=== PATIENT | female | born 2000 | race Caucasian/White ===

== ENCOUNTER 2022-09-18 09:18 | Outpatient (REF) | payer OTHER, SELFPAY ==
[2022-09-18 09:43] LABS: Basophils Absolute Auto 0.1 X10*3/uL (0.0-0.2); Eosinophils Absolute Auto 0.2 X10*3/uL (0.0-0.4); Eosinophils Percent Auto 2.8 % (0-4); Hematocrit 43.1 % (37.0-47.0); Hemoglobin 14.3 g/dl (12.0-16.0); Imm Gran Abs Auto 0.02 X10*3/uL (0.00-0.03); Imm Gran Pct Auto 0.3 % (0.0-0.4); Lymphocytes Absolute Auto 1.7 X10*3/uL (1.2-4.9); Lymphocytes Percent Auto 29.5 % (20-40); MANUAL DIFF FLAG NO; Mean Corpuscular HGB Conc 33.2 g/dl (31.0-35.0); Mean Corpuscular Hemoglobin 29.9 pg (27.0-33.0); Mean Corpuscular Volume 90.2 fL (80.0-98.0); Mean Platelet Volume 9.8 fL (9.4-12.3); Monocytes Absolute Auto 0.5 X10*3/uL (0.1-1.2); Monocytes Percent Auto 8.7 % (2-11); Neutrophils Absolute Auto 3.3 x10*3/uL (2.0-8.3); Neutrophils Percent Auto 57.7 % (45-73); Platelet Count 303 X10*3/uL (160-400); Red Blood Count 4.78 X10*6/uL (4.20-5.50); Red Cell Distribution Width 11.5 % (11.0-16.0); White Blood Count 5.7 X10*3/uL (4.8-10.8)
[2022-09-18 10:27] LABS: Alanine Aminotransferase 11 U/L (0-31); Albumin Level 4.7 g/dL (3.5-5.0); Alkaline Phosphatase 73 U/L (39-117); Anion Gap 12 (12-20); Aspartate Amino Transferase 15 U/L (5-31); Bilirubin Total 0.7 mg/dL (0.0-1.0); Blood Urea Nitrogen 16 mg/dL (9-16); Calcium 10.2 mg/dL (8.4-10.2); Carbon Dioxide 25 mmol/L (22-29); Chloride 107 mmol/L (96-108); Estimated Glomerular Filt Rate > 60; Glucose Random 117 mg/dL (60-115); Potassium 4.7 mmol/L (3.3-5.1); Sodium 139 mmol/L (135-145); Total Protein 7.4 g/dL (6.5-8.0)
[2022-09-18 10:56] LABS: Folate 17.9 ng/mL (> or = 4.0); TSH reflex Free T4 2.15 uIU/mL (0.32-4.0); Vitamin B12 472 pg/mL (200-900); Vitamin D 25-OH Total 36.5 ng/mL (>30)
== END 2022-09-18 09:19 | disposition home or self-care (01) ==
LOC: HO.LAB 09:18
PROVIDERS: PCP Nurse Practitioner Family; Visit Provider Nurse Practitioner Family
DX: F41.9 Anxiety disorder, unspecified (principal); R11.10 Vomiting, unspecified; F42.9 Obsessive-compulsive disorder, unspecified; R73.9 Hyperglycemia, unspecified
CPT/HCPCS: 36415; 80053; 82306; 82607; 82746; 84443; 85025

== ENCOUNTER 2022-10-06 10:51 | Emergency (ER) | payer OTHER, SELFPAY ==
--- NOTE | ~2022-10-06 | CT_ITS ---
EXAMINATION: CT ABDOMEN AND PELVIS WITH CONTRAST CLINICAL INFORMATION: Right lower quadrant tenderness COMPARISON: None available. TECHNIQUE: Multidetector volumetric images were obtained from the superior aspect of the liver through the pubic symphysis following administration 85 mL of Omnipaque 350 intravenous contrast. Sagittal and coronal reformatted images were obtained on the technologist's workstation. Oral contrast: No This CT examination was performed using dose optimization techniques as appropriate, variously including the following: *Automated exposure control *Adjustment of mA and/or kV according to patient size (this includes techniques or standardized protocols for targeted exams where dose is matched to indication/reason for exam; i.e. extremities or head) *Use of iterative reconstruction technique DLP: 3:15 mGy-cm FINDINGS: LUNG BASES: The visualized lung bases are unremarkable. LIVER, GALLBLADDER, AND BILIARY TREE: The liver is normal in size, shape, and attenuation. No focal hepatic lesion or biliary ductal dilatation is present. The gallbladder is unremarkable with no evidence of radiopaque gallstones, gallbladder wall thickening, or obvious pericholecystic inflammatory changes. PANCREAS: Unremarkable. SPLEEN: Unremarkable. ADRENAL GLANDS: Unremarkable. KIDNEYS AND URETERS: The kidneys are normal in size, shape, and attenuation. No hydronephrosis, hydroureter, or calculi seen. No perinephric stranding. BLADDER: Unremarkable. GASTROINTESTINAL TRACT: There is scattered stool and gas seen throughout the colon without distention. There is mild mural thickening involving descending colon without pericolic fat stranding. The small bowel loops are normal caliber. Appendix is not visualized ABDOMINAL WALL: No significant hernia is appreciated. LYMPH NODES: Normal. VASCULAR: Unremarkable. PELVIC VISCERA: The uterus is anteverted but unremarkable ovaries. There is minimal physiological free fluid in the cul-de-sac. OSSEOUS STRUCTURES: No lytic or sclerotic process seen. CT/CT abdomen pelvis w IV con IMPRESSION: 1. No acute intra-abdominal process seen. 2. Mild mural thickening involving descending colon without pericolic fat stranding. Question inflammatory or infectious etiology. Correlate with clinical exam. 3. Minimal physiological free fluid in the cul-de-sac. Fleischner guidelines were followed.
[2022-10-06 11:11] VITALS: BP 122/88; PULSE 92; RESP 18; TEMP 36.9; O2SAT 100; BMI 16.5
--- NOTE | 2022-10-06 11:11 | ED.NAVMDI ---
HPI - Nausea/Vomiting/Diarrhea General Chief complaint: Nausea/Vomiting/Diarrhea Stated complaint: Vomiting blood Time Seen by Provider: 10/06/22 12:20 Source: patient Mode of arrival: ambulatory Limitations: no limitations History of Present Illness HPI Narrative: Patient is a 21-year-old female with history of anxiety and OCD presenting to the emergency department with complaint of nausea and vomiting for the past 3 weeks. Reports this morning she noted tinges of blood in her vomit. States she is occasionally able to tolerate water but has been unable to tolerate any food for the past 3 weeks. She denies any diarrhea or constipation. Denies any fevers. Denies any abnormal vaginal discharge or abnormal vaginal bleeding. Denies any concern for STIs. Denies any back or flank pain. Reports 10/10 abdominal pain in the mornings which she states is relieved after vomiting. Denies chest pain or shortness of breath. Denies any prior abdominal surgeries. MD elicited complaint: nausea, vomiting and abdominal pain Onset (ago): week(s) Description of vomiting: watery and blood-streaked Associated nausea: Yes Associated abdominal pain: Yes Location of pain: epigastric Pain consistency: now resolved Exacerbating factors: eating Relieving factors: vomiting Associated symptoms: denies other symptoms Treatment prior to arrival: none Related Data Previous Rx's Medication Instructions Recorded epinephrine 0.3 mg/0.3 mL 0.3 mg (0.3 mL) IM Q4H PRN 09/18/22 injection, auto-injector (EpiPen anaphylaxis #2 ea 2-Paco) hydroxyzine HCl 10 mg tablet 10 mg PO BID PRN anxiety #20 tabs 09/23/22 dicyclomine 10 mg capsule 10 mg PO QID PRN abdominal pain 10/06/22 #20 caps ondansetron 4 mg disintegrating 4 mg PO Q8H PRN nausea and 10/06/22 tablet vomiting #10 tabs Allergies Allergy/AdvReac Type Severity Reaction Status Date / Time egg Allergy Severe Anaphylaxis Verified 10/06/22 11:18 Review of Systems Review of Systems: As per HPI. Yes all other systems are reviewed and are negative Constitutional: Constitutional: Reports as per HPI Gastrointestinal: Gastrointestinal: Reports nausea PMFSH Past Medical History Medical History (Updated 10/06/22 @ 16:23 by Sabrina Connelly NP) Anxiety Surgical History [place] teeth extracted Family History Family History Mother Asthma Maternal Grandfather Lung cancer Father No problems noted. Social History Social History Housing: House Alcohol intake: never Patient Tobacco Use Status: Never used Tobacco Smoked in Last 30 Days: No Use of substances other than those prescribed or required for medical reasons: No Advance Directives: No Advance Directives Information Provided: No service: No Current occupational status: employed Cognitive needs: No Hearing needs: No Vision needs: No Physical Exam Vital Signs: Vital Signs: Last Vital Signs Temp 98.5 F 10/06/22 15:52 Pulse 115 H 10/06/22 15:52 Resp 22 H 10/06/22 15:52 BP 128/83 10/06/22 15:52 Pulse Ox 100 10/06/22 15:52 O2 Del Method Room Air 10/06/22 15:52 BMI result Body Mass Index 16.5 Vital signs have been reviewed and appear to be correct. Blood pressure normal. Heart rate normal. Respiratory rate normal. Temperature normal. Oxygen saturation normal. Const: General: cooperative, healthy appearing and no acute distress Orientation/consciousness: oriented to person, oriented to place, oriented to time and patient oriented x3 Limitations: no limitations HEENT: Head: Yes normocephalic and Yes atraumatic Ears: external ears normal General nose exam: Normal external nose present Face and sinus: Yes face symmetric Mouth: oropharynx normal and moist mucous membranes Throat: Yes uvula midline Eyes: Pupils: Equal, round and reactive pupils present Neck: Neck: Yes normal visual inspection and Yes supple Resp: Effort & Inspection: normal respiratory effort and able to speak in complete sentences Auscultation: clear to auscultation bilaterally Cardio: Rate: regular rate Rhythm: regular rhythm Heart sounds: S1 normal heart sound present and S2 normal heart sound present GI: Inspection: Yes normal to inspection Palpation (GI): Soft to palpation, Tenderness to palpation present (GI) in the RLQ, no guarding and No Rebound tenderness present Auscultation: normoactive bowel sounds : General: Yes no CVA tenderness Back/Spine/Pelvis: Back: no CVA tenderness Skin: General skin exam: elasticity normal and turgor normal Neuro: General: oriented to person, oriented to place, oriented to time, patient oriented x3, moves all extremities, no focal motor deficits and CN's II-XI intact bilaterally Cranial nerves: Yes Equal, round and reactive pupils present Cognition (Neuro): normal cognition Extrem: General: Yes full ROM, Yes no pedal edema and Yes no calf tenderness Psych: Mental Status: mental status grossly normal Affect: normal affect Thought process: Normal thought process present Course Course Course Narrative: RME - 21 yo female with history of OCD and anxiety presents to the ER for evaluation of nausea and vomiting & abdominal pain for 3 weeks, unable to keep anything down. This morning started with blood streaked vomit. Seen by PCP on September 18 and was prescribed hydroxyzine for anxiety. Pain is worst in the mornings 10/10, relieved after vomiting in the mornings. Reports history of similar episode as a teenager but not for this long. Plan: basic lab workup, Upreg 16:18 Patient reports mild decrease in nausea, states it comes and goes. Nursing reports that patient became acutely anxious following her CT scan and was noted to have increased respiratory rate and mild tachycardia. Feel this is related to her anxiety, do not suspect sepsis. CT scan shows mild mural thickening involving the descending colon without fat stranding. Unlikely infectious as patient has been symptomatic for three weeks. Patient also does not have left-sided tenderness on exam. All results discussed with patient and and all questions answered. Will refer patient to GI outpatient for further evaluation of her symptoms. Will prescribe Bentyl for abdominal pain. Return precautions discussed at bedside. Instructed patient to follow-up with her PCP as well. Patient verbalized understanding and agreement with plan. Medications Administered Discontinued Medications Generic Name Dose Route Start Last Admin Trade Name Freq PRN Reason Stop Dose Admin Haloperidol Lactate 5 mg 10/06/22 13:21 10/06/22 13:29 Haloperidol Lactate 5 Mg/Ml Vial IM 10/06/22 13:22 5 mg STAT STA Administration Sodium Chloride 1,000 mls @ 999 mls/hr 10/06/22 13:15 10/06/22 14:20 Ns IV 10/06/22 14:15 Infused .Q1H1M ANDREY Infusion Iohexol 100 ml 10/06/22 15:07 10/06/22 15:09 Iohexol 350 Mg/Ml 100 Ml Infus..Btl IV 10/06/22 15:08 85 ml ONCE ONE Administration Medical Decision Making Medical Decision Making [facility] Narrative: Patient is a 21-year-old female with history of anxiety and OCD presenting to the emergency department with complaint of nausea and vomiting for the past 3 weeks. On exam patient is awake, A+Ox3, vital signs within normal limits, nontoxic appearing, lung sounds CTA, abdomen soft, tender to palpation right lower quadrant, no CVA tenderness. Urine hcg negative. 1+ leukocytes on UA, however epithelial cells also present so likely contamination. Mild leukocytosis and mildly elevated BUN likely related to vomiting, urine drug screen negative. Differential includes GERD, PUD, cyclical vomiting syndrome, appendicitis, electrolyte abnormality. Less likely bowel obstruction. Plan: CT abdomen pelvis and IV fluids, antiemetic Please refer to course for remaining clinical decision making. Differential Diagnosis Differential Diagnoses: The differential diagnosis associated with the presentation includes As above. Admission/Observation Consideration of admission/observation: Escalation of care including admission/observation considered Lab Data [facility] Lab Attestation statement: I reviewed the patient's lab results. 10/06/22 11:25 10/06/22 11:25 Labs: Lab Results 10/06/22 10/06/22 10/06/22 Range/Units 11:25 11:25 12:22 WBC 11.2 H (4.8-10.8) X10*3/uL RBC 5.10 (4.20-5.50) X10*6/uL Hgb 15.1 (12.0-16.0) g/dl Hct 44.8 (37.0-47.0) % MCV 87.8 (80.0-98.0) fL MCH 29.6 (27.0-33.0) pg MCHC 33.7 (31.0-35.0) g/dl RDW 11.2 (11.0-16.0) % Plt Count 293 (160-400) X10*3/uL MPV 9.9 (9.4-12.3) fL Immature Gran % (Auto) 0.2 (0.0-0.4) % Neut % (Auto) 84.2 H (45-73) % Lymph % (Auto) 11.4 L (20-40) % Martin % (Auto) 3.2 (2-11) % Eos % (Auto) 0.4 (0-4) % Baso % (Auto) 0.6 (0-2) % Lymph # (Auto) 1.3 (1.2-4.9) X10*3/uL Martin # (Auto) 0.4 (0.1-1.2) X10*3/uL Eos # (Auto) 0.1 (0.0-0.4) X10*3/uL Baso # (Auto) 0.1 (0.0-0.2) X10*3/uL Abs Immat Gran (auto) 0.02 (0.00-0.03) X10*3/uL Absolute Neuts (auto) 9.5 H (2.0-8.3) x10*3/uL Absolute Nucleated RBC 0.000 (0.0-0.012) X10*3/uL Nucleated RBC % (auto) 0.0 (0.0-0.2) /100WBC Sodium 139 (135-145) mmol/L Potassium 4.5 (3.3-5.1) mmol/L Chloride 105 (96-108) mmol/L Carbon Dioxide 25 (22-29) mmol/L Anion Gap 14 (12-20) BUN 18 H (9-16) mg/dL Creatinine 0.96 (0.5-1.4) mg/dL Estim Creat Clear Calc 55.3 Estimated GFR > 60 Random Glucose 96 (60-115) mg/dL Calcium 10.1 (8.4-10.2) mg/dL Magnesium 2.3 (1.6-2.6) mg/dL Total Bilirubin 1.0 (0.0-1.0) mg/dL Direct Bilirubin 0.3 (0.0-0.5) mg/dL AST 15 (5-31) U/L ALT 8 (0-31) U/L Alkaline Phosphatase 72 (39-117) U/L Total Protein 7.7 (6.5-8.0) g/dL Albumin 4.8 (3.5-5.0) g/dL Lipase 29 (8-78) U/L Urine Color Yellow Urine Appearance Cloudy Urine pH 7.5 (5.0-9.0) Ur Specific [place] 1.025 (1.005-1.025) Urine Protein 30 (1+) H (Neg-Trace) mg/dL Urine Glucose (UA) Negative (Negative) mg/dL Urine Ketones 80 (Negative) mg/dL Urine Blood Negative (Negative) Urine Nitrite Negative (Negative) Ur Leukocyte Esterase Small (1+) H (Negative) Urine RBC 3-5 H (0-2) /HPF Urine WBC 6-10 H (0-5) /HPF Ur Squamous Epith Cells 11-20 (0-2) /HPF Urine Bacteria 4+ (None Seen) Hyaline Casts 6-10 (0-2) /LPF Urine Test (NEGATIVE) Urine Opiates Screen (Not Detect) Urine Fentanyl Screen (Not Detect) Ur Barbiturates Screen (Not Detect) Ur Phencyclidine Scrn (Not Detect) Ur Amphetamines Screen (Not Detect) U Benzodiazepines Scrn (Not Detect) Urine Cocaine Screen (Not Detect) U Marijuana (THC) Screen (Not Detect) 10/06/22 10/06/22 Range/Units 12:22 12:22 WBC (4.8-10.8) X10*3/uL RBC (4.20-5.50) X10*6/uL Hgb (12.0-16.0) g/dl Hct (37.0-47.0) % MCV (80.0-98.0) fL MCH (27.0-33.0) pg MCHC (31.0-35.0) g/dl RDW (11.0-16.0) % Plt Count (160-400) X10*3/uL MPV (9.4-12.3) fL Immature Gran % (Auto) (0.0-0.4) % Neut % (Auto) (45-73) % Lymph % (Auto) (20-40) % Martin % (Auto) (2-11) % Eos % (Auto) (0-4) % Baso % (Auto) (0-2) % Lymph # (Auto) (1.2-4.9) X10*3/uL Martin # (Auto) (0.1-1.2) X10*3/uL Eos # (Auto) (0.0-0.4) X10*3/uL Baso # (Auto) (0.0-0.2) X10*3/uL Abs Immat Gran (auto) (0.00-0.03) X10*3/uL Absolute Neuts (auto) (2.0-8.3) x10*3/uL Absolute Nucleated RBC (0.0-0.012) X10*3/uL Nucleated RBC % (auto) (0.0-0.2) /100WBC Sodium (135-145) mmol/L Potassium (3.3-5.1) mmol/L Chloride (96-108) mmol/L Carbon Dioxide (22-29) mmol/L Anion Gap (12-20) BUN (9-16) mg/dL Creatinine (0.5-1.4) mg/dL Estim Creat Clear Calc Estimated GFR Random Glucose (60-115) mg/dL Calcium (8.4-10.2) mg/dL Magnesium (1.6-2.6) mg/dL Total Bilirubin (0.0-1.0) mg/dL Direct Bilirubin (0.0-0.5) mg/dL AST (5-31) U/L ALT (0-31) U/L Alkaline Phosphatase (39-117) U/L Total Protein (6.5-8.0) g/dL Albumin (3.5-5.0) g/dL Lipase (8-78) U/L Urine Color Urine Appearance Urine pH (5.0-9.0) Ur Specific [place] (1.005-1.025) Urine Protein (Neg-Trace) mg/dL Urine Glucose (UA) (Negative) mg/dL Urine Ketones (Negative) mg/dL Urine Blood (Negative) Urine Nitrite (Negative) Ur Leukocyte Esterase (Negative) Urine RBC (0-2) /HPF Urine WBC (0-5) /HPF Ur Squamous Epith Cells (0-2) /HPF Urine Bacteria (None Seen) Hyaline Casts (0-2) /LPF Urine Test NEGATIVE (NEGATIVE) Urine Opiates Screen Not Detected (Not Detect) Urine Fentanyl Screen Not Detected (Not Detect) Ur Barbiturates Screen Not Detected (Not Detect) Ur Phencyclidine Scrn Not Detected (Not Detect) Ur Amphetamines Screen Not Detected (Not Detect) U Benzodiazepines Scrn Not Detected (Not Detect) Urine Cocaine Screen Not Detected (Not Detect) U Marijuana (THC) Screen Not Detected (Not Detect) Independent Interpretation I performed an independent interpretation of an: CT Scan Interpretation: I independently reviewed the CT scan and agree with the radiologist's interpretation. Radiology Impression Discussion of test interpretation with radiology: I have reviewed the radiologist's reading. Radiologist Impression: CT/CT abdomen pelvis w IV con IMPRESSION: 1.? No acute intra-abdominal process seen. 2.? Mild mural thickening involving descending colon without pericolic fat stranding. Question inflammatory or infectious etiology. Correlate with clinical exam. 3.? Minimal physiological free fluid in the cul-de-sac. ? Fleischner guidelines were followed. External Record Review External record reviewed: Inpatient record, Office record and Outpatient record Discharge Plan Discharge Clinical Impression: Nausea & vomiting, Abdominal pain Patient Disposition: Home, Self-Care Instructions: Acute Nausea and Vomiting (ED), Acute Abdominal Pain (DC) Additional Instructions: You have been evaluated in the emergency department today for abdominal pain, nausea, and vomiting. Your evaluation did not show evidence of medical conditions requiring emergent intervention at this time. Please schedule an appointment with your primary care physician. You are being referred to a boot and saddle repair person. Please follow-up with them within 2 days. You are being prescribed a medication called dicyclomine (Bentyl) which you may use as prescribed for abdominal pain. You are also being prescribed ondansetron (Zofran) as needed for nausea. Return to the emergency department if you experience worsening or uncontrolled pain, fevers 100.4? F or greater, recurrent vomiting, inability to tolerate food or fluids by mouth, bloody stools or vomit, black or tarry stools, or any other concerning symptoms. Prescriptions: New dicyclomine 10 mg capsule 10 mg PO QID PRN (Reason: abdominal pain) Qty: 20 0RF ondansetron 4 mg tablet,disintegrating 4 mg PO Q8H PRN (Reason: nausea and vomiting) Qty: 10 0RF No Action hydroxyzine HCl 10 mg tablet 10 mg PO BID PRN (Reason: anxiety) Qty: 20 0RF epinephrine [EpiPen 2-Paco] 0.3 mg/0.3 mL auto-injector 0.3 mg IM Q4H PRN (Reason: anaphylaxis) Qty: 2 0RF Referrals: [facility] [Provider Group]
[2022-10-06 11:31] LABS: MANUAL DIFF FLAG NO
[2022-10-06 11:33] LABS: Basophils Absolute Auto 0.1 X10*3/uL (0.0-0.2); Basophils Percent Auto 0.6 % (0-2); Eosinophils Absolute Auto 0.1 X10*3/uL (0.0-0.4); Eosinophils Percent Auto 0.4 % (0-4); Hematocrit 44.8 % (37.0-47.0); Hemoglobin 15.1 g/dl (12.0-16.0); Imm Gran Abs Auto 0.02 X10*3/uL (0.00-0.03); Imm Gran Pct Auto 0.2 % (0.0-0.4); Lymphocytes Absolute Auto 1.3 X10*3/uL (1.2-4.9); Lymphocytes Percent Auto 11.4 % (20-40); Mean Corpuscular HGB Conc 33.7 g/dl (31.0-35.0); Mean Corpuscular Hemoglobin 29.6 pg (27.0-33.0); Mean Corpuscular Volume 87.8 fL (80.0-98.0); Mean Platelet Volume 9.9 fL (9.4-12.3); Monocytes Absolute Auto 0.4 X10*3/uL (0.1-1.2); Monocytes Percent Auto 3.2 % (2-11); Neutrophils Absolute Auto 9.5 x10*3/uL (2.0-8.3); Neutrophils Percent Auto 84.2 % (45-73); Platelet Count 293 X10*3/uL (160-400); Red Cell Distribution Width 11.2 % (11.0-16.0); White Blood Count 11.2 X10*3/uL (4.8-10.8)
[2022-10-06 11:57] LABS: Alanine Aminotransferase 8 U/L (0-31); Albumin Level 4.8 g/dL (3.5-5.0); Alkaline Phosphatase 72 U/L (39-117); Anion Gap 14 (12-20); Aspartate Amino Transferase 15 U/L (5-31); Bilirubin Direct 0.3 mg/dL (0.0-0.5); Blood Urea Nitrogen 18 mg/dL (9-16); Calcium 10.1 mg/dL (8.4-10.2); Carbon Dioxide 25 mmol/L (22-29); Chloride 105 mmol/L (96-108); Creatinine Clr Calc Pharmacy 55.3; Estimated Glomerular Filt Rate > 60; Glucose Random 96 mg/dL (60-115); Lipase 29 U/L (8-78); Magnesium 2.3 mg/dL (1.6-2.6); Potassium 4.5 mmol/L (3.3-5.1); Sodium 139 mmol/L (135-145); Total Protein 7.7 g/dL (6.5-8.0)
--- NOTE | 2022-10-06 12:23 | PC.NURSE ---
patient a&ox3, vss, pt states she has no pain at this time pt c/o nausea, urine obtained, call menon within reach, will continue to monitor
[2022-10-06 12:40] LABS: Amphetamine Screen Urine Not Detected (Not Detect); Barbiturates, Urine Not Detected (Not Detect); Benzodiazepines Screen Urine Not Detected (Not Detect); Cannabinoid Screen Urine Not Detected (Not Detect); Cocaine Screen Urine Not Detected (Not Detect); Fentanyl, urine Not Detected (Not Detect); Opiate Screen Urine Not Detected (Not Detect); Phencyclidine Screen Urine Not Detected (Not Detect)
[2022-10-06 12:45] LABS: UPreg QC Valid YES; Urine Pregnancy NEGATIVE (NEGATIVE)
[2022-10-06 12:48] LABS: Appearance Urine Cloudy; Color Urine Yellow; Glucose Urine UA Negative (Negative); Leukocyte Esterase Urine Small (1+) (Negative); Nitrite Urine Negative (Negative); PH 7.5 (5.0-9.0); Specific Gravity - Urine 1.025 (1.005-1.025); UMIC TRIGGER UACC YES; Urine Blood Negative (Negative); Urine Ketones 80 mg/dL (Negative); Urine Protein 30 (1+) mg/dL (Neg-Trace)
[2022-10-06 12:57] LABS: Bacteria Urine 4+ (None Seen); UACC Culture Trigger YES
[2022-10-06] MEDS: 0.9 % Sodium Chloride 1,000 ML 999 ML IV (13:19)
--- NOTE | 2022-10-06 13:21 | PC.NURSE ---
iv inserted, ivf running per order, will continue to monitor.
[2022-10-06 13:22] VITALS: BP 123/67; PULSE 78; RESP 18; TEMP 36.8; O2SAT 100
[2022-10-06] MEDS: Haloperidol Lactate 5 MG/ML VIAL IM (13:29)
--- NOTE | 2022-10-06 13:30 | PC.NURSE ---
pt medicated with haldol for cyclic vomiting and anxiety- this was not given for behavioral.
[2022-10-06] MEDS: iohexoL 350 MG/ML 100 ML INFUS..BTL IV (15:09)
[2022-10-06 15:52] VITALS: BP 128/83; PULSE 115; RESP 22; TEMP 36.9; O2SAT 100
== END 2022-10-06 16:55 | disposition home or self-care (01) ==
PROVIDERS: Physician Assistant; Emergency Provider Emergency Medicine; PCP Nurse Practitioner Family
DX: R11.2 Nausea with vomiting, unspecified (principal); R10.31 Right lower quadrant pain; R00.0 Tachycardia, unspecified; F41.9 Anxiety disorder, unspecified; Z79.899 Other long term (current) drug therapy
CPT/HCPCS: 36415; 74177; 80048; 80076; 80307; 81001; 81025; 83690; 83735; 85025; 87086; 99284; Q9967

== ENCOUNTER 2022-10-07 | Outpatient (REF) | payer OTHER, SELFPAY ==
[2022-10-10 13:34] LABS: H Pylori Breath Test Negative (Negative)
== END 2022-10-07 00:01 | disposition home or self-care (01) ==
LOC: HO.LNP
PROVIDERS: Visit Provider Nurse Practitioner Family
DX: Z11.2 Encounter for screening for other bacterial diseases (principal); R11.2 Nausea with vomiting, unspecified
CPT/HCPCS: 83013

== ENCOUNTER 2022-10-07 14:32 | Outpatient (AMB) | payer OTHER, SELFPAY ==
--- NOTE | 2022-10-07 14:36 | MHC.OFFVIS ---
Intake Vital Signs 10/07/22 14:38 Height 5 ft Weight 114 lb 3.191 oz BMI 22.3 BP 125/80 Blood Pressure Location Lt brachial Position Sitting Pulse 121 H Intake Visit Reasons: nausea and vomiting ED FOLLOW UP Intake Note: Janice presents in office as a new.patient for a ED f/u for nausea and vomiting PT CC: pt reports having abdominal pain , nausea, vomiting , can't keep food/liquids down , shaking pt denies any other GI Issues [employer] Required: No Accompanied by: Spouse Allergies egg Allergy (Severe, Verified 10/16/22 08:59) Anaphylaxis HPI nausea and vomiting ED FOLLOW UP HPI Details ER VISIT FROM 10/06/2022 Course Narrative: RME - 21 yo female with history of OCD and anxiety presents to the ER for evaluation of nausea and vomiting & abdominal pain for 3 weeks, unable to keep anything down. This morning started with blood streaked vomit. Seen by PCP on September 18 and was prescribed hydroxyzine for anxiety. Pain is worst in the mornings 10/10, relieved after vomiting in the mornings. Reports history of similar episode as a teenager but not for this long. Plan: basic lab workup, Upreg 16:18 Patient reports mild decrease in nausea, states it comes and goes. ? Nursing reports that patient became acutely anxious following her CT scan and was noted to have increased respiratory rate and mild tachycardia.? Feel this is related to her anxiety, do not suspect sepsis.? CT scan shows mild mural thickening involving the descending colon without fat stranding.? Unlikely infectious as patient has been symptomatic for three weeks.? Patient also does not have left-sided tenderness on exam.? All results discussed with patient and and all questions answered.? Will refer patient to GI outpatient for further evaluation of her symptoms.? Will prescribe Bentyl for abdominal pain.? Return precautions discussed at bedside.? Instructed patient to follow-up with her PCP as well.? Patient verbalized understanding and agreement with plan.? TODAY'S VISIT Patient is here today for initial consultation. Patient was seen in the emergency department and this morning by her PCP and came to the office because was told that she will be seen by GI. Patient was seen in the ER for epigastric discomfort, inability to hold any food down even water. Patient has been feeling like this for the last several weeks. Patient is afraid that she is going to start losing weight. Patient states that she is afraid to eat or drink anything because she feels like she will vomiting anything that she will put it in her mouth. Patient reports that she is not . CT scan and blood work reviewed while in the ED and no acute findings. Mild leukocytosis most likely related to patient's stress of vomiting. Patient denies any recent travel. Patient appears extremely anxious. Patient does have a history of an anxiety [facility] Medical History Anxiety Surgical History [place] teeth extracted Family History Mother Asthma Maternal Grandfather Lung cancer Father No problems noted. Social History Housing: House Alcohol intake: never Patient Tobacco Use Status: Never used Tobacco e-Cigarette/Vaping Use: Never Used service: No Current occupational status: employed Cognitive needs: No Hearing needs: No Vision needs: No Review of Systems Const Denies weight gain and Denies weight loss ENT Reports no additional complaints, Denies dysphagia and Denies odynophagia Card Reports no additional complaints Resp Reports no additional complaints GI Reports abdominal pain (Epigastric), Denies belching, Denies melena, Denies bloating, Denies change in bowel habits, Denies dysphagia, Denies excessive flatus, Denies dyspepsia, Denies heartburn, Denies diarrhea, Denies loose stools, Reports nausea, Denies odynophagia and Reports vomiting Reports no additional complaints Musc Reports no additional complaints Neuro Reports no additional complaints Psych Reports no additional complaints Endo Reports no additional complaints Physical Exam Vital Signs: Last Vital Signs Pulse 121 H 10/07/22 14:38 BP 125/80 10/07/22 14:38 BMI result Body Mass Index 22.3 Const General: healthy appearing, no acute distress and well developed Nutritional Appearance: well nourished Orientation/consciousness: patient oriented x3 HEENT Head: Yes normal to inspection, Yes normocephalic and Yes atraumatic Face and sinus: Yes normal facial exam Mouth: Normal oral and palatal mucosa present Throat: Yes posterior oropharynx normal, Yes tonsils normal and Yes uvula midline Eyes General: appearance normal, both eyes and all related structures Neck Neck: Yes normal visual inspection, Yes full ROM and Yes trachea midline Thyroid: Thyroid normal Resp Effort & Inspection: normal respiratory effort, able to speak in complete sentences, no tracheal deviation and symmetric chest movement Auscultation: clear to auscultation bilaterally Cardio Rate: regular rate Heart sounds: S1 normal heart sound present and S2 normal heart sound present GI Inspection: Yes normal to inspection and No distended Palpation (GI): Soft to palpation, not firm, nontender and No hepatosplenomegaly present Auscultation: normal bowel sounds General: Yes no CVA tenderness Back/Spine/Pelvis Back: no CVA tenderness Skin General skin exam: elasticity normal, turgor normal and dry skin Neuro General: patient oriented x3 Psych Appearance: grossly normal Mental Status: mental status grossly normal Speech and movement: Normal speech and movement present Affect: Anxious affect present Attitude: cooperative Thought process: Normal thought process present Assessment & Plan Assessment & Plan (1) Vomiting: Code(s): R11.10 - Vomiting, unspecified Plan: Will start patient on omeprazole in the morning and sucralfate at bedtime. Will do H pylori test in the office today. Will treat empirically if positive. (2) Postprandial epigastric pain: Code(s): R10.13 - Epigastric pain Plan: Continue avoiding dietary triggers and late night snacking. Staying upright for minimal 3 hours after meals discussed with patient. Start taking omeprazole in the morning and sucralfate at bedtime. (3) Diarrhea: Code(s): R19.7 - Diarrhea, unspecified Qualifiers: Diarrhea type: unspecified type Qualified Code(s): R19.7 - Diarrhea, unspecified Plan: Reports occasional loose stools postprandially. Low FODMAP diet discussed with patient. List of food recommended as well as list of food to avoid given to patient. I will see her after upper endoscopy, sooner on as needed basis. Patient is agreeable to this plan and verbalizes understanding of instructions. She was given the opportunity to ask questions and all questions answered. Thank you for allowing me to participate in her care Orders: Orders H Pylori Breath Test 10/14/22 Vitamin B12 and Folate 10/11/22 R19.7 - Diarrhea, unspecified Vitamin D 25-OH (D2 and D3) 10/11/22 E55.9 - Vitamin D deficiency, unspecified Transglutaminase Ab IgG 10/11/22 R10.9 - Unspecified abdominal pain Transglutaminase IgA 10/11/22 R10.9 - Unspecified abdominal pain HCG Quantitative 10/11/22 R11.10 - Vomiting, unspecified Medications: New sucralfate 1 g PO BEDTIME 30 tabs 1RF R19.7 - Diarrhea, unspecified omeprazole 20 mg PO DAILY 30 caps 2RF K21.9 - Gastro-esophageal reflux disease without esophagitis capsaicin 0.025% do not wash area for at least 30 min after application 1 appl topical BID 50 grams 0RF Discontinued dicyclomine Discontinued Reason: Doctor's Order 10 mg PO QID PRN 20 caps 0RF abdominal pain Coding Level of Care Code New Pt Level 4 (88387) Diagnoses Vomiting R11.10 Postprandial epigastric pain R10.13 Diarrhea R19.7 Diarrhea type: unspecified type Time Spent (min) 45 Comment 30 minutes spent with patient and additional 15 minutes spent reviewing her records
[2022-10-07 14:38] VITALS: BP 125/80; PULSE 121; BMI 22.3
== END 2022-10-07 15:47 | disposition home or self-care (01) ==
PROVIDERS: PCP Nurse Practitioner Family; Visit Provider Nurse Practitioner Family
DX: R11.10 Vomiting, unspecified (principal); R10.13 Epigastric pain; R19.7 Diarrhea, unspecified
CPT/HCPCS: 99204

== ENCOUNTER → 2022-10-07 14:32 | Outpatient (BNVA) | payer OTHER, SELFPAY | PROVIDERS: PCP Nurse Practitioner Family; Visit Provider Nurse Practitioner Family ==

== ENCOUNTER 2022-10-08 15:35 | Outpatient (REF) | payer OTHER, SELFPAY | END 2022-10-08 15:36 | disposition home or self-care (01) | LOC: HO.LNP 15:35 | PROVIDERS: Visit Provider Nurse Practitioner Family | DX: Z13.89 Encounter for screening for other disorder (principal) | CPT/HCPCS: 83013 ==

== ENCOUNTER 2022-10-11 08:47 | Outpatient (REF) | payer OTHER, SELFPAY ==
[2022-10-22 20:08] LABS: Transglutaminase Ab IgG <1.0 U/mL; Transglutaminase IgA <1.0 U/mL
== END 2022-10-11 08:48 | disposition home or self-care (01) ==
LOC: HO.LAB 08:47
PROVIDERS: PCP Nurse Practitioner Family; Visit Provider Nurse Practitioner Family
DX: R10.9 Unspecified abdominal pain (principal); R11.10 Vomiting, unspecified; R19.7 Diarrhea, unspecified; E55.9 Vitamin D deficiency, unspecified
CPT/HCPCS: 36415; 82306; 82607; 82746; 84702; 86364

== ENCOUNTER 2022-10-15 11:24 | Day surgery (SDC) | payer OTHER, SELFPAY ==
--- NOTE | 2022-10-13 10:54 | P.CONAN_ITS ---
HPI - Anesthesia Eval Consult details Narrative: 21yo F for Upper Endoscopy PMFSH Active Problems Active Problems: All Active Problems (Updated 10/07/22 @ 10:00 by EDWAR Nichole) Vomiting (Acute) Anxiety (Acute) History of anaphylaxis (Acute) Encounter to establish care (Acute) Allergies (Acute) OCD (obsessive compulsive disorder) (Acute) Elevated glucose level (Acute) Past Medical History Medical History Anxiety Family History Family History Mother Asthma Maternal Grandfather Lung cancer Father No problems noted. Surgical History Surgical History [place] teeth extracted Social History Social History Housing: House Alcohol intake: never Patient Tobacco Use Status: Never used Tobacco e-Cigarette/Vaping Use: Never Used service: No Current occupational status: employed Cognitive needs: No Hearing needs: No Vision needs: No Meds Allergies Allergy/AdvReac Type Severity Reaction Status Date / Time egg Allergy Severe Anaphylaxis Verified 10/16/22 08:59 Exam Exam Date and Time: October 13, 2022 1054 Pertinent Lab Results Pertinent Lab Results: Laboratory Tests 10/06/22 10/06/22 11:25 11:25 WBC 11.2 H Hgb 15.1 Hct 44.8 Plt Count 293 Sodium 139 Potassium 4.5 Chloride 105 Carbon Dioxide 25 BUN 18 H Creatinine 0.96 Assessment and Plan Assessment Anesthesia Assessment: Chart Reviewed
[2022-10-15 11:57] VITALS: BP 120/84; PULSE 101; RESP 16; TEMP 37; O2SAT 100; BMI 22.5
--- NOTE | 2022-10-15 12:26 | MHC.SHP ---
Pre-Procedural Eval Section A Date of Service: 10/15/22 Section B Chief Complaint: Vomiting, unspecified Details of Present Illness: persistent nausea and vomiting Relevant Family History (Specify if Yes): No Relevant Social History: None Present Medications: see Short Stay Collaborative assessment Medical History: Significant History (Anxiety,OCD) History of Previous Operations: Relevant previous surgery/procedure and date(s) ([place] teeth extraction ) Allergies: Allergies Allergy/AdvReac Type Severity Reaction Status Date / Time egg Allergy Severe Anaphylaxis Verified 10/07/22 14:43 Review of Systems Sugical H&P ROS: Negative: Constitution, Cardiovascular, Respiratory, Neurological, Psychiatric, Hem-Onc, Allergic/Immunologic, Gastrointestinal, Genitourinary, Musculoskeletal, Integumentary, Endocrine and Eyes/Ears/Nose/Throat Exam Surgical H&P Exam: Normal: HEENT, Normal: Heart, Normal: Lungs, Normal: Extremities, Normal: Abdomen, Normal: Skin and Normal: Neurological Plan Diagnosis/Plan: Unchanged I have reviewed the history and physical and performed a pertinent physical examination on my patient. No changes have occurred unless specified. Time Spent With Patient Time: Total time managing care of this patient today ____ minutes.
--- NOTE | 2022-10-15 12:27 | W.PM.OPN ---
Operative Note Operative Note Date of Service: 10/15/22 Narrative: Procedure Description: EGD Indication: nausea,vomiting Anesthesia: MAC FLEXIBLE TRANSORAL UPPER GASTROINTESTINAL ENDOSCOPY UPPER ENDOSCOPY Consent: Indications for the procedure and potential complications of bleeding, perforation, reaction to medications and missed diagnosis were discussed with the patient and informed consent was obtained. Instrument: Olympus GIF H 190 J mid size upper endoscope Monitoring: Vital signs and clinical assessment, continuous EKG monitoring, Pulse oximetry, Carbon Dioxide monitoring and blood pressure monitoring were done throughout the procedure. Procedure: The patient was placed in the left lateral decubitis position and pre-procedure medications were administered and a bite block was placed. The endoscope was inserted into the mouth and advanced under direct vision to the third part of duodenum. A careful inspection was made as the upper endoscope was withdrawn including a retroflexed examination of the proximal stomach; Findings and interventions are described below. Findings: Larynx:normal Esophagus: GE junction at 36 cm, diaphragm hiatus at 36 cm, bx taken from GEJ, distal esophagus and proximal esophagus, some erythema noted at GEJ. there was minimal esophgeal peristalsis seen. Stomach: Patchy gastric erythema with erosions seen at the antrum. Biopsies were obtained. Grade 2 flap valve on retroflexed examination of the cardia. There was reduced gasttic motility noted. Duodenum: Normal bulb and descending duodenum, bx taken Intervention: Biopsies as noted above Impression/Findings: erosive gastritis possible gastroparesis and esophageal dysmotility PLAN: await bx cont with PPI as she feels it is helping if sx cont then can consider GES and check for h pylori
--- NOTE | 2022-10-15 12:27 | HO.ANESPROP2 ---
HPI - Anesthesia Eval Consult details Narrative: EGD PMF Active Problems Active Problems: All Active Problems (Updated 10/07/22 @ 10:00 by EDWAR Nichole) Vomiting (Acute) Anxiety (Acute) History of anaphylaxis (Acute) Encounter to establish care (Acute) Allergies (Acute) OCD (obsessive compulsive disorder) (Acute) Elevated glucose level (Acute) Past Medical History Medical History Anxiety Family History Family History Mother Asthma Maternal Grandfather Lung cancer Father No problems noted. Family history of problems with anesthesia: No Surgical History Surgical History [place] teeth extracted History of Problems with Anesthesia: No Social History Social History Housing: House Alcohol intake: never Patient Tobacco Use Status: Never used Tobacco Use of substances other than those prescribed or required for medical reasons: No Advance Directives: No Advance Directives Information Provided: Yes service: No Current occupational status: employed Cognitive needs: No Hearing needs: No Vision needs: No Meds Allergies Allergy/AdvReac Type Severity Reaction Status Date / Time egg Allergy Severe Anaphylaxis Verified 10/07/22 14:43 Active Medications: Current Medications Lactated Ringer's (Lr) 1,000 mls @ 100 mls/hr IVCONT .Q10H ANDREY Exam Exam Date and Time: October 15, 2022 1227 Height,Weight and Vital Signs: Height 5 ft Weight 52.163 kg Last Vital Signs Temp 98.6 F 10/15/22 11:57 Pulse 101 H 10/15/22 11:57 Resp 16 10/15/22 11:57 BP 120/84 10/15/22 11:57 Pulse Ox 100 10/15/22 11:57 O2 Del Method Room Air 10/15/22 11:57 Pertinent Lab Results Pertinent Lab Results: Laboratory Tests 10/15/22 11:30 Urine Test NEGATIVE Airway Mallampati Class: II TM Dist: >3cm Neck ROM: Full Heart: rrr Lungs: cta Assessment and Plan Assessment Anesthesia Assessment: Anesthesia Plan Discussed Final Anesthetic Review Family History of Problems with Anesthesia: No History of Problems with Anesthesia: No ASA Class: II Final Preanesthetic Review: No Changes in Pt Med Stat, Meds/Allgs Chart Reviewed, Consent Obtained/Reviewed and Anes Risks/Benef Reviewed Patient Risk: Low Procedure Risk: Intermediate Anesthetic Plan Anesthetic Plan: MAC: and Agree w/ Assess. and Plan Disposition: Standard PACU
[2022-10-15 12:55] VITALS: BP 91/48; PULSE 79; RESP 16; TEMP 36.3; O2SAT 98
[2022-10-15 13:10] VITALS: BP 106/63; PULSE 90; RESP 16; O2SAT 100
[2022-10-15 13:25] VITALS: BP 108/69; PULSE 78; RESP 16; TEMP 36.6; O2SAT 100
== END 2022-10-15 14:19 | disposition home or self-care (01) ==
PROVIDERS: PCP Nurse Practitioner Family; Visit Provider Internal Medicine Gastroenterology
PROC: 0DJ08ZZ Inspection of Upper Intestinal Tract, Via Natural or Artificial Opening Endoscopic (ICD-10-PCS; CPT 43235; principal; 2022-10-15 13:10)
DX: K29.50 Unspecified chronic gastritis without bleeding (principal); K22.4 Dyskinesia of esophagus; K44.9 Diaphragmatic hernia without obstruction or gangrene; Z79.899 Other long term (current) drug therapy; Z91.012 Allergy to eggs; F41.1 Generalized anxiety disorder
CPT/HCPCS: 43239; 81025; 88305; 88342

== ENCOUNTER 2022-10-22 11:07 | Outpatient (REF) | payer OTHER, SELFPAY ==
[2022-10-22 13:24] LABS: Estimated Average Glucose 91 mg/dL; Hemoglobin A1c % 4.8 %
== END 2022-10-22 11:08 | disposition home or self-care (01) ==
LOC: HO.LAB 11:07
PROVIDERS: PCP Nurse Practitioner Family; Visit Provider Nurse Practitioner Family
DX: R73.09 Other abnormal glucose (principal)
CPT/HCPCS: 36415; 83036

== ENCOUNTER 2022-10-28 09:17 | Outpatient (AMB) | payer OTHER, SELFPAY ==
--- NOTE | 2022-10-28 09:29 | A.OFFVIS_ITS ---
Intake Vital Signs 10/28/22 09:31 Height 5 ft Weight 114 lb 10.246 oz BMI 22.4 BP 131/79 Blood Pressure Location Lt brachial Position Sitting Pulse 119 H Intake Visit Reasons: S/p egd Intake Note: Janice presents in office as a est.patient for a post -op for a EGD PT CC: pt reports being dizzy , nausea , vomiting , blurry vision, feels worse when laying down pt denies any other GI Issues Medical Records Supervisor Required: No Accompanied by: Self / Same As Patient Allergies egg Allergy (Severe, Verified 11/18/22 09:46) Anaphylaxis HPI S/p egd HPI Details LAST VISIT: Vomiting Will start patient on omeprazole in the morning and sucralfate at bedtime. Will do H pylori test in the office today. Will treat empirically if positive. Postprandial epigastric pain Continue avoiding dietary triggers and late night snacking. Staying upright for minimal 3 hours after meals discussed with patient. Start taking omeprazole in the morning and sucralfate at bedtime. Diarrhea Reports occasional loose stools postprandially. Low FODMAP diet discussed with patient. List of food recommended as well as list of food to avoid given to patient. I will see her after upper endoscopy, sooner on as needed basis. Patient is agreeable to this plan and verbalizes understanding of instructions. She was given the opportunity to ask questions and all questions answered. ? Thank you for allowing me to participate in her care Plan Orders Orders H Pylori Breath Test 10/14/22 Vitamin B12 and Folate 10/11/22 R19.7 Vitamin D 25-OH (D2 and D3) 10/11/22 E55.9 Transglutaminase Ab IgG 10/11/22 R10.9 Transglutaminase IgA 10/11/22 R10.9 HCG Quantitative 10/11/22 R11.10 UPPER ENDOSCOPY: Findings: Larynx:normal Esophagus: GE junction at 36? cm, diaphragm hiatus at 36 cm, bx taken from GEJ, distal esophagus and proximal esophagus, some erythema noted at GEJ. there was minimal esophgeal peristalsis seen. Stomach: Patchy gastric erythema with erosions seen at the antrum. Biopsies were obtained. Grade 2 flap valve on retroflexed examination of the cardia. There was reduced gasttic motility noted. Duodenum: Normal bulb and descending duodenum, bx taken Intervention: Biopsies as noted above Impression/Findings: erosive gastritis possible gastroparesis and esophageal dysmotility PATHOLOGY RESULTS Addendum Addendum #1 (B): Immunostain for H. pylori is negative with appropriate control. Electronically Signed By: Lucie Burciaga ? 10/16/221906 Diagnosis A.? Duodenum, biopsy:? Duodenal mucosa with preserved villi and no specific change.? B.? Stomach, biopsy:? Gastric antral and body mucosa with minimal chronic gastritis with rare neutrophils; negative for intestinal metaplasia and dysplasia (see comment).? C.? Esophagogastric junction, biopsy:? Squamous mucosa with mild hyperplasia and intraepithelial eosinophils (up to 5 per high-power field) consistent with esophagitis, and columnar mucosa with mild chronic inflammation; negative for intestinal metaplasia and dysplasia.? D.? Esophagus, distal, biopsy:? Squamous mucosa with no specific change; no columnar mucosa present.? E.? Esophagus, proximal, biopsy:? Squamous mucosa with no specific change; no columnar mucosa present. * TODAY'S VISIT Patient is here for follow-up and to discuss upper endoscopy results. Patient reports that she was doing well after upper endoscopy, however in the last few days she continues to have epigastric discomfort and vomiting. Patient call the office few days ago and we ordered Phenergan that she will try to take. Patient reports dyspepsia especially in the morning. Waking up nauseous. Stating that Zofran was helping her. Patient states that she continues to have occasional loose stools postprandially. Trying to avoid acidic food. Upper endoscopy results discussed with patient. Patient feels anxious about eating. She is afraid that she will throw up anything that she eats. Patient states that she is drinking plenty of fluids [facility] Medical History (Updated 11/18/22 @ 10:26 by EDWAR Huertas-JEFERSON) Anxiety Gastritis Surgical History History of esophagogastroduodenoscopy (EGD) [place] teeth extracted Family History Mother Asthma Maternal Grandfather Lung cancer Father No problems noted. Social History Housing: House Alcohol intake: never Patient Tobacco Use Status: Never used Tobacco e-Cigarette/Vaping Use: Never Used service: No Current occupational status: employed Cognitive needs: No Hearing needs: No Vision needs: No Review of Systems Const Denies weight gain and Denies weight loss ENT Reports no additional complaints, Denies dysphagia and Denies odynophagia Card Reports no additional complaints Resp Reports no additional complaints GI Reports abdominal pain (Epigastric), Denies belching, Denies melena, Reports bloating, Denies change in bowel habits, Denies dysphagia, Denies excessive flatus, Reports dyspepsia, Reports heartburn, Denies diarrhea, Denies loose stools, Reports nausea, Denies odynophagia and Reports vomiting Reports no additional complaints Musc Reports no additional complaints Neuro Reports no additional complaints Psych Reports no additional complaints Endo Reports no additional complaints Physical Exam Vital Signs: Last Vital Signs Pulse 119 H 10/28/22 09:31 BP 131/79 10/28/22 09:31 BMI result Body Mass Index 22.4 Const General: healthy appearing, no acute distress and well developed Nutritional Appearance: well nourished Orientation/consciousness: patient oriented x3 HEENT Head: Yes normal to inspection, Yes normocephalic and Yes atraumatic Face and sinus: Yes normal facial exam Mouth: Normal oral and palatal mucosa present Throat: Yes posterior oropharynx normal, Yes tonsils normal and Yes uvula midline Eyes General: appearance normal, both eyes and all related structures Neck Neck: Yes normal visual inspection, Yes full ROM and Yes trachea midline Thyroid: Thyroid normal Resp Effort & Inspection: normal respiratory effort, able to speak in complete sentences, no tracheal deviation and symmetric chest movement Auscultation: clear to auscultation bilaterally Cardio Rate: regular rate Heart sounds: S1 normal heart sound present and S2 normal heart sound present GI Inspection: Yes normal to inspection and No distended Palpation (GI): Soft to palpation, not firm, nontender and No hepatosplenomegaly present Auscultation: normal bowel sounds General: Yes no CVA tenderness Back/Spine/Pelvis Back: no CVA tenderness Skin General skin exam: elasticity normal, turgor normal and dry skin Neuro General: patient oriented x3 Psych Appearance: grossly normal Mental Status: mental status grossly normal Speech and movement: Normal speech and movement present Affect: normal affect Results Reviewed Results Reviewed: Laboratory Tests 10/08/22 10/11/22 10/11/22 15:35 08:58 08:58 Vitamin B12 820 25-OH Vitamin D Total 32 Folate 14.9 Tiss Transglutamin IgG Tiss Transglutamin IgA H. pylori Breath Test Negative 10/11/22 08:58 Vitamin B12 25-OH Vitamin D Total Folate Tiss Transglutamin IgG <1.0 Tiss Transglutamin IgA <1.0 H. pylori Breath Test Assessment & Plan Assessment & Plan (1) Vomiting: Code(s): R11.10 - Vomiting, unspecified Qualifiers: Vomiting type: cyclical vomiting syndrome unrelated to migraine Qualified Code(s): R11.15 - Cyclical vomiting syndrome unrelated to migraine Plan: Patient will start using Phenergan. Patient will try to eat smaller meals and more often. Patient will stay hydrated (2) Gastritis: Code(s): K29.70 - Gastritis, unspecified, without bleeding Qualifiers: Gastritis type: superficial Chronicity: chronic Gastritis bleeding: without bleeding Qualified Code(s): K29.30 - Chronic superficial gastritis without bleeding Plan: Patient diagnosed with gastritis. Start taking sucralfate twice a day, avoid dietary triggers as mentioned above (3) Postprandial epigastric pain: Code(s): R10.13 - Epigastric pain Plan: Postprandial epigastric pain. Patient was diagnosed with chronic mild gastritis and will need to take sucralfate twice a day, continue Nexium. Patient will be sent for barium swallow. Patient should take PPI with sip of water in the morning before going for the test or take Phenergan suppository (4) Diarrhea: Code(s): R19.7 - Diarrhea, unspecified Qualifiers: Diarrhea type: functional diarrhea Qualified Code(s): K59.1 - Functional diarrhea Plan: Continue avoiding dietary triggers. Making sure that patient is not getting dehydrated. Per patient diarrhea has subsided and she is able to make solid stools. I will see patient after gastric emptying study, sooner on as needed basis. Patient is agreeable to this plan and verbalizes understanding of instructions. She was given the opportunity to ask questions and all questions answered. Referral to psychiatry to help patient to deal with her anxiety send Orders: Orders NM gastric emptying study 10/28/22 K21.9 - Gastro-esophageal reflux disease without esophagitis, R11.10 - Vomiting, unspecified Referrals Psychiatry Referral F42.9 - Obsessive-compulsive disorder, unspecified Medications: Changed From sucralfate 1 g PO BEDTIME 30 tabs 1RF R19.7 - Diarrhea, unspecified To sucralfate 1 g PO BID 60 tabs 1RF R19.7 - Diarrhea, unspecified Coding Level of Care Code Est Pt Level 4 (10534) Diagnoses Vomiting R11.15 Vomiting type: cyclical vomiting syndrome unrelated to migraine Gastritis K29.30 Gastritis type: superficial Chronicity: chronic Gastritis bleeding: without bleeding Postprandial epigastric pain R10.13 Diarrhea K59.1 Diarrhea type: functional diarrhea Time Spent (min) 35 Comment 20 minutes spent with patient and additional 15 minutes spent reviewing her records
[2022-10-28 09:31] VITALS: BP 131/79; PULSE 119; BMI 22.4
== END 2022-10-28 10:05 | disposition home or self-care (01) ==
PROVIDERS: PCP Nurse Practitioner Family; Visit Provider Nurse Practitioner Family
DX: R11.15 Cyclical vomiting syndrome unrelated to migraine (principal); K29.30 Chronic superficial gastritis without bleeding; R10.13 Epigastric pain; K59.1 Functional diarrhea
CPT/HCPCS: 99214

== ENCOUNTER → 2022-10-28 09:17 | Outpatient (BNVA) | payer OTHER, SELFPAY | PROVIDERS: PCP Nurse Practitioner Family; Visit Provider Nurse Practitioner Family ==

== ENCOUNTER → 2022-11-11 07:34 | Outpatient (REF) | payer OTHER, SELFPAY ==
--- NOTE | ~2022-11-11 | NM_ITS ---
EXAMINATION: NM RADIONUCLIDE SOLID FOOD GASTRIC EMPTYING 4-HOUR STUDY CLINICAL INFORMATION: Gastroesophageal reflux disease without esophagitis. COMPARISON: CT of the abdomen and pelvis done on 10/06/2022. TECHNIQUE: A standard meal consisting of 4 oz of Egg Beaters brand tagged with 1000 microcuries Tc-99m Sulfur Colloid, 8 oz water and 2 slices of toast with jelly was administered orally to the patient. Images were obtained using a dual head gamma camera in the anterior and posterior projections over of the stomach immediately post ingestion and at hourly intervals up to 4 hours post ingestion. The anterior and posterior counts at each time interval were averaged using the geometric mean and expressed as percentage of the immediate post ingestion counts. FINDINGS: There is good visualization of activity in the stomach immediately post ingestion. As the study progresses, there is good clearance of activity from the stomach and visualization of progressively increasing small bowel activity. By the end of the study, there is almost no retention noted in the stomach. Retention in the stomach at each time interval was: 1 hour 5% (normal 37%-90%) 2 hours 3% (normal 30%-60%) 3 hours 1% 4 hours imaging was not performed since only one percent was retained by 3 hours. NM/NM gastric emptying study IMPRESSION: Rapid gastric emptying. (For solid meal, rapid gastric emptying is less than 30% at 60 minutes. Delayed gastric emptying criteria is more than 60% remaining at 120 minutes or more than 10% at 240 minutes. The 4-hour value is the best discriminator of a normal or abnormal result). Gastric emptying study grading per JNMT Consensus Recommendations in 2008 (https://tech.snmjournals.org/content/36/44) Grade 1 (mild retention): 11-20% at 4h Grade 2 (moderate retention): 21-35% at 4h Grade 3 (severe retention): 36-50% at 4h Grade 4 (very severe retention): >50% retention at 4h
== END ==
LOC: HO.NUCMED 07:34
PROVIDERS: Visit Provider Nurse Practitioner Family
DX: K21.9 Gastro-esophageal reflux disease without esophagitis (principal); R11.10 Vomiting, unspecified
CPT/HCPCS: 78264; A9541

== ENCOUNTER 2022-11-18 09:37 | Outpatient (AMB) | payer OTHER, SELFPAY ==
[2022-11-18 09:46] VITALS: BP 107/63; PULSE 98; BMI 21.9
--- NOTE | 2022-11-18 09:46 | A.OFFVIS_ITS ---
Intake Vital Signs 11/18/22 09:46 Height 5 ft Weight 111 lb 15.917 oz BMI 21.9 BP 107/63 Blood Pressure Location Lt brachial Position Sitting Pulse 98 Intake Visit Reasons: 3 week follow up Intake Note: Janice presents in office as a est.patient for a 3week f/u for vomiting PT CC: pt reports having no concerns, feel a little better pt denies any other GI Issues Topographical Engineer Required: No Accompanied by: Self / Same As Patient Allergies egg Allergy (Severe, Verified 11/18/22 09:46) Anaphylaxis HPI 3 week follow up HPI Details LAST VISIT (1) Vomiting: ?Code(s): R11.10 - Vomiting, unspecified ?Qualifiers: ?Vomiting type:?cyclical vomiting syndrome unrelated to migraine? Qualified Code(s):?R11.15 - Cyclical vomiting syndrome unrelated to migraine ?Plan: Patient will start using Phenergan.? Patient will try to eat smaller meals and more often.? Patient will stay hydrated (2) Gastritis: ?Code(s): K29.70 - Gastritis, unspecified, without bleeding ?Qualifiers: ?Gastritis type:?superficial??Chronicity:?chronic??Gastritis bleeding:? without bleeding? Qualified Code(s):?K29.30 - Chronic superficial gastritis without bleeding ?Plan: Patient diagnosed with gastritis.? Start taking sucralfate twice a day, avoid dietary triggers as mentioned above (3) Postprandial epigastric pain: ?Code(s): R10.13 - Epigastric pain ?Plan: Postprandial epigastric pain.? Patient was diagnosed with chronic mild gastritis and will need to take sucralfate twice a day, continue Nexium.? Patient will be sent for barium swallow.? Patient should take PPI with sip of water in the morning before going for the test or take Phenergan suppository (4) Diarrhea: ?Code(s): R19.7 - Diarrhea, unspecified ?Qualifiers: ?Diarrhea type:?functional diarrhea? Qualified Code(s):?K59.1 - Functional diarrhea ?Plan: Continue avoiding dietary triggers.? Making sure that patient is not getting de hydrated.? Per patient diarrhea has subsided and she is able to make solid stools.? I will see patient after gastric emptying study, sooner on as needed basis.? Patient is agreeable to this plan and verbalizes understanding of instructions.? She was given the opportunity to ask questions and all questions answered.? Referral to psychiatry to help patient to deal with her anxiety send TODAY'S VISIT: Patient is here today for follow-up and to discuss gastric emptying study. Patient reports that since the last time I have seen her she has been feeling well, has been able to tolerate food. Taking Nexium in the morning and sucralfate twice a day and feels much better. Patient states that she also is avoiding dietary triggers. Unable to eat tomatoes as they cause epigastric discomfort and heartburn. Patient states that she has not needed to use Phenergan that often. Patient states that she was very sick the day when she came to do gastric emptying study. Patient was unable to eat and due to her allergy so patient drank protein shake. Within 2 minutes of drinking protein shake patient vomited. Test was performed and read by radiology regardless her vomiting. Patient had 5% of retention 1 hour after that test. This test is invalid to establish if patient does have gastroparesis or not. Patient tells me that she is feeling better. Continues to eat more. Currently she is eating 3 times a day and will try to encourage her to have snacks in between meals and perhaps try to increase to 5 times a day [facility] Medical History (Updated 11/18/22 @ 10:26 by Mindy Young TAMALE MACHINE FEEDER-) Anxiety Gastritis Surgical History History of esophagogastroduodenoscopy (EGD) [place] teeth extracted Family History Mother Asthma Maternal Grandfather Lung cancer Father No problems noted. Social History Housing: House Alcohol intake: never Patient Tobacco Use Status: Never used Tobacco e-Cigarette/Vaping Use: Never Used service: No Current occupational status: employed Cognitive needs: No Hearing needs: No Vision needs: No Review of Systems Const Denies weight gain and Denies weight loss ENT Reports no additional complaints, Denies dysphagia and Denies odynophagia Card Reports no additional complaints Resp Reports no additional complaints GI Reports abdominal pain, Denies belching, Denies melena, Denies bloating, Denies change in bowel habits, Denies dysphagia, Denies excessive flatus, Denies dyspepsia, Reports heartburn, Denies diarrhea, Denies loose stools, Reports nausea, Denies odynophagia and Denies vomiting Reports no additional complaints Musc Reports no additional complaints Neuro Reports no additional complaints Psych Reports no additional complaints Endo Reports no additional complaints Physical Exam Vital Signs: Last Vital Signs Pulse 98 11/18/22 09:46 BP 107/63 11/18/22 09:46 BMI result Body Mass Index 21.9 Const General: healthy appearing, no acute distress and well developed Nutritional Appearance: well nourished Orientation/consciousness: patient oriented x3 HEENT Head: Yes normal to inspection, Yes normocephalic and Yes atraumatic Face and sinus: Yes normal facial exam Mouth: Normal oral and palatal mucosa present Throat: Yes posterior oropharynx normal, Yes tonsils normal and Yes uvula midline Eyes General: appearance normal, both eyes and all related structures Neck Neck: Yes normal visual inspection, Yes full ROM and Yes trachea midline Thyroid: Thyroid normal Resp Effort & Inspection: normal respiratory effort, able to speak in complete sentences, no tracheal deviation and symmetric chest movement Auscultation: clear to auscultation bilaterally Cardio Rate: regular rate Heart sounds: S1 normal heart sound present and S2 normal heart sound present GI Inspection: Yes normal to inspection and No distended Palpation (GI): Soft to palpation, not firm, nontender and No hepatosplenomegaly present Auscultation: normal bowel sounds General: Yes no CVA tenderness Back/Spine/Pelvis Back: no CVA tenderness Skin General skin exam: elasticity normal, turgor normal and dry skin Neuro General: patient oriented x3 Psych Appearance: grossly normal Mental Status: mental status grossly normal Speech and movement: Normal speech and movement present Affect: normal affect Results Reviewed Results Reviewed: GASTRIC EMPTYING STUDY 11/11/2022 Patient vomited immediately after consuming protein shake FINDINGS: There is good visualization of activity in the stomach immediately post ingestion. As the study progresses, there is good clearance of activity from the stomach and visualization of progressively increasing small bowel activity. By the end of the study, there is almost no retention noted in the stomach. Retention in the stomach at each time interval was: 1 hour 5% (normal 37%-90%) 2 hours 3% (normal 30%-60%) 3 hours 1% 4 hours imaging was not performed since only one percent was retained by 3 hours. NM/NM gastric emptying study IMPRESSION: Rapid gastric emptying. ? ? Assessment & Plan Assessment & Plan (1) Vomiting: Code(s): R11.10 - Vomiting, unspecified Plan: Continue avoiding dietary triggers. Use Phenergan as needed. Eat smaller meals and more often. Continue taking PPI in the morning and sucralfate at noon and at bedtime. (2) Postprandial epigastric pain: Code(s): R10.13 - Epigastric pain Plan: Occasional postprandial epigastric pain. Avoid dietary triggers and late night snacking. Avoid lactose. Gastric emptying study is invalid and we can not make a diagnosis of gastroparesis. Patient seems to be feeling better after eating. Possibly she needs some little bit extra time to stay on sucralfate and PPI (3) Postprandial abdominal bloating: Code(s): R14.0 - Abdominal distension (gaseous) Plan: Postprandial abdominal bloating occasionally. Low FODMAP diet discussed with patient. List of food recommended as well as list of food to avoid given to patient. (4) Gastritis: Code(s): K29.70 - Gastritis, unspecified, without bleeding Qualifiers: Gastritis type: superficial Chronicity: chronic Gastritis bleeding: without bleeding Qualified Code(s): K29.30 - Chronic superficial gastritis without bleeding Plan: Continue PPI and sucralfate as mentioned above. Dietary triggers. Offered nutrition help to patient and patient declined at this time. Patient states that she will be doing this on her own and will call our office if she will not be successful. I will see patient in 1 month, sooner on as needed basis. Patient is agreeable to this plan and verbalizes understanding instructions. She was given the opportunity to ask questions and all questions answered. Thank you for allowing me to participate in her care Coding Level of Care Code Est Pt Level 4 (12179) Diagnoses Vomiting R11.10 Postprandial epigastric pain R10.13 Postprandial abdominal bloating R14.0 Gastritis K29.30 Gastritis type: superficial Chronicity: chronic Gastritis bleeding: without bleeding Time Spent (min) 40 Comment 25 minutes spent with patient and additional 15 minutes spent reviewing her records
== END 2022-11-18 10:13 | disposition home or self-care (01) ==
PROVIDERS: PCP Nurse Practitioner Family; Visit Provider Nurse Practitioner Family
DX: R11.10 Vomiting, unspecified (principal); R10.13 Epigastric pain; R14.0 Abdominal distension (gaseous); K29.30 Chronic superficial gastritis without bleeding
CPT/HCPCS: 99214

== ENCOUNTER → 2022-11-18 09:37 | Outpatient (BNVA) | payer OTHER, SELFPAY | PROVIDERS: PCP Nurse Practitioner Family; Visit Provider Nurse Practitioner Family ==

== ENCOUNTER → 2022-11-26 07:43 | Outpatient (REF) | payer OTHER, SELFPAY ==
--- NOTE | ~2022-11-26 | NM_ITS ---
EXAMINATION: SC RADIONUCLIDE SOLID FOOD GASTRIC EMPTYING 4-HOUR STUDY CLINICAL INFORMATION: Gastroesophageal reflux disease without esophagitis. COMPARISON: Attempted gastric emptying study done on 11/11/2022. TECHNIQUE: A meal consisting of 8 ounces of Ensure-plus Brand tagged with 700 microcuries Tc-99m Sulfur Colloid, was administered orally to the patient. This fatty supplement was used because the patient could not tolerate eggs, and has been shown to closely mimic gastric emptying of labeled eggs. Images were obtained using a dual head gamma camera in the anterior and posterior projections over of the stomach immediately post ingestion and at hourly intervals up to 4 hours post ingestion. The anterior and posterior counts at each time interval were averaged using the geometric mean and expressed as percentage of the immediate post ingestion counts. FINDINGS: There is good visualization of activity in the stomach immediately post ingestion. As the study progresses, there is good clearance of activity from the stomach and visualization of progressively increasing small bowel activity. By the end of the study, there is almost no retention noted in the stomach. Retention in the stomach at each time interval was: 1 hour 45% (normal 37%-90%) 2 hours 19% (normal 30%-60%) 3 hours 3% 4 hours was not calculated due to only 3% retention at 3 hours. SC/SC gastric emptying study IMPRESSION: Normal modified 4-hour gastric emptying study. Ensure-plus Brand supplement was used instead of radio-labeled eggs because of the patient's intolerance to eggs. This supplement has been shown to closely mimic gastric emptying of labeled eggs. (For solid meal, rapid gastric emptying is less than 30% at 60 minutes. Delayed gastric emptying criteria is more than 60% remaining at 120 minutes or more than 10% at 240 minutes. The 4-hour value is the best discriminator of a normal or abnormal result). Gastric emptying study grading per JNMT Consensus Recommendations in 2008 (https://tech.snmjournals.org/content/36/1/44) Grade 1 (mild retention): 11-20% at 4h Grade 2 (moderate retention): 21-35% at 4h Grade 3 (severe retention): 36-50% at 4h Grade 4 (very severe retention): >50% retention at 4h
== END ==
LOC: HO.NUCMED 07:43
PROVIDERS: PCP Nurse Practitioner Family; Visit Provider Nurse Practitioner Family
DX: K21.9 Gastro-esophageal reflux disease without esophagitis (principal)
CPT/HCPCS: 78264; A9541

== ENCOUNTER 2022-11-28 08:22 | Outpatient (AMB) | payer OTHER, SELFPAY ==
[2022-11-28 08:32] VITALS: BP 104/68; PULSE 76; O2SAT 98; BMI 21.1
--- NOTE | 2022-11-28 08:32 | MHC.PC.OV ---
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 Required: No Allergies egg Allergy (Severe, Verified 11/28/22 08:45) Anaphylaxis Medication List - Last Reconciled 11/28/22 by EDWAR Devi capsaicin 0.025% 1 appl topical BID epinephrine (EpiPen 2-Paco) 0.3 mg (0.3 mL) IM Q4H PRN esomeprazole magnesium 20 mg PO DAILY ondansetron 4 mg PO Q8H PRN prochlorperazine (Compazine) 25 mg [place] BID PRN sucralfate 1 g PO BID Tobacco use date assessed: 10/07/22 Dental Screening Dental Screen Date: 11/28/22 Did you have a dental visit in the last 12 months?: No Did you have a dental problem in the last 6 months where you did not have access to dental care?: No HPI PE with labs HPI Details Patient is a 22-year-old female who presents today for physical exam. Medical history significant for OCD, [id number] score 21- interested in counseling referral-would like to hold off on pharmacological intervention at this time, and gastritis-followed by [facility]-reports medications somewhat help her-still reports vomiting almost every day-has an upcoming appointment with GI. Patient reports she possibly did have tetanus vaccine in the last 10 years-she will check with her mother. Patient reports eye exam last year, she reports receiving new glasses this year-follows with eye doctor every 2 years. She will call for a dental appointment. Reports normal Pap smear 12/2021 with [facility]. Reports intermittent insomnia - hard time to fall and stay asleep-did not use anything for this. No shortness of breath or chest pain. Recent blood work results reviewed with the patient. [facility] Medical History (Updated 12/01/22 @ 09:25 by EDWAR Devi) Anxiety Encounter to establish care Gastritis Surgical History History of esophagogastroduodenoscopy (EGD) [place] teeth extracted Family History Mother Asthma Maternal Grandfather Lung cancer Father No problems noted. Social History Housing: House Alcohol intake: never Patient Tobacco Use Status: Never used Tobacco e-Cigarette/Vaping Use: Never Used service: No Current occupational status: employed Cognitive needs: No Hearing needs: No Vision needs: No Questionnaire PHQ-9 Over the last 2 weeks, how often have you been bothered by any of the following problems? 1. Little interest or pleasure in doing things: not at all 2. Feeling down, depressed, or hopeless: not at all 3. Trouble falling or staying asleep, or sleeping too much: not at all 4. Feeling tired or having little energy: not at all 5. Poor appetite or overeating: not at all 6. Feeling bad about yourself - or that you are a failure or have let yourself or your family down: not at all 7. Trouble concentrating on things, such as reading the newspaper or watching television: not at all 8. Moving or speaking so slowly that other people could have noticed. Or the opposite - being so fidgety or restless that you have been moving around a lot more than usual: not at all 9. Thoughts that you would be better off or of hurting yourself in some way: not at all Total score: 0 Depression Screening Interpretation: Negative 94737 - PHQ-9 Billing: Yes Source: Developed by Drs. León Caruso, Cindy Mack, Idris Call and colleagues, with an educational jeannette from [employer]. Thrive Questionnaire Date Thrive assessed: 09/18/22 AUDIT C Alcohol Use Questionnaire (AUDIT-C) 1. How often do you have a drink containing alcohol?: Never 3. How often do you have six or more drinks on one occasion?: Never Total Score: 0 Score Reviewed/Action Taken: No MARK-7 AMB Questionnaire MARK-7 Date MARK - 7 assessed: 09/18/22 Feeling nervous, anxious, or on edge: 3 = Nearly every day Not being able to stop or control worryin = Nearly every day Worrying too much about different things: 3 = Nearly every day Trouble relaxin = Nearly every day Being so restless that it is hard to sit still: 3 = Nearly every day Becoming easily annoyed or irritable: 3 = Nearly every day Feeling afraid as if something awful might happen: 3 = Nearly every day Total MARK-7 score (0-4 normal; 5-9 mild; 10-14 moderate; 15-21 severe): 21 Source: Developed by Drs. León Caruso, Cindy Mack, Idris Call and colleagues, with an educational jeannette from [employer]. MARK-7 Assessment Billing MARK-7 Assessment Tool: MARK-7 Assessment 53090 Review of Systems Const Denies body aches, Denies chills, Denies fever(s) and Denies headache(s) Eyes Denies change in vision ENT Denies dizziness, Denies otalgia, Denies headache(s), Denies nasal discharge, Denies sinus pain and Denies sore throat Card Denies chest pain, Denies edema, Denies lightheadedness and Denies dyspnea Resp Denies cough and Denies dyspnea GI Reports as per HPI, Denies constipation, Denies diarrhea, Denies nausea and Reports vomiting Denies dysuria Musc Denies myalgias Skin/Breast Denies rash Neuro Denies dizziness and Denies headache(s) Physical exam (Primary Care) Vital Signs: Last Vital Signs Pulse 76 11/28/22 08:32 BP 104/68 11/28/22 08:32 Pulse Ox 98 11/28/22 08:32 Oxygen Delivery Method Room Air 11/28/22 08:32 BMI result Body Mass Index 21.1 Tobacco/Smoking Status: Tobacco use Status Tobacco use date assessed 10/07/22 11/28/22 08:34 Patient Tobacco Use Status Never used Tobacco 11/28/22 08:34 e-Cigarette/Vaping Use Never Used 11/28/22 08:34 PHQ-9: PHQ-9 Score PHQ-9: Total score 0 11/28/22 08:48 Depression Screening Interpretation: Negative Thrive Assessment: Date of Thrive Assessment Date Thrive assessed 09/18/22 11/28/22 08:34 Const General: cooperative and no acute distress Orientation/consciousness: patient oriented x3 HENMT Head: Yes normocephalic and Yes atraumatic Ears: TM's normal bilaterally Face and sinus: Yes sinuses nontender Mouth: oropharynx normal and moist mucous membranes Throat: Yes posterior oropharynx normal Eyes General: appearance normal, both eyes and all related structures Pupils: Equal, round and reactive pupils present EOM: EOMs intact bilaterally Neck Neck: Yes normal visual inspection, Yes full ROM and Yes no lymphadenopathy Thyroid: Thyroid normal Resp Effort & Inspection: normal respiratory effort and able to speak in complete sentences Auscultation: clear to auscultation bilaterally, no crackles, no rales, no rhonchi and no wheezes Cardio Rate: regular rate Rhythm: regular rhythm Heart sounds: S1 normal heart sound present, S2 normal heart sound present and no murmurs GI Palpation (GI): Soft to palpation, not firm, nontender, no guarding, not rigid and no hepatosplenomegaly Auscultation: normal bowel sounds General: No CVA tenderness Back/Spine/Pelvis Back: No CVA tenderness Skin General skin exam: no rashes or lesions noted Neuro General: patient oriented x3 Cranial nerves: Yes Equal, round and reactive pupils present Gait exam (Neuro): Normal gait present Extrem General: Yes full ROM and No edema Assessment and Plan Assessment & Plan (1) Gastritis: Code(s): K29.70 - Gastritis, unspecified, without bleeding Qualifiers: Gastritis type: superficial Chronicity: chronic Gastritis bleeding: without bleeding Qualified Code(s): K29.30 - Chronic superficial gastritis without bleeding Plan: Continue current treatment Continue to follow-up with [facility] (2) Anxiety: Code(s): F41.9 - Anxiety disorder, unspecified Plan: Counseling referral Patient would like to hold off on pharmacological intervention at this time (3) Elevated glucose level: Code(s): R73.09 - Other abnormal glucose Plan: A1c 4.8 10/2022 Continue to monitor (4) Adult general medical exam: Comment: Pap smear (-) 12/2021 at [facility] [place] [employer]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 Code(s): Z00.00 - Encounter for general adult medical examination without abnormal findings Plan: Repeat in 1 year (5) Insomnia: Code(s): G47.00 - Insomnia, unspecified Plan: Reinforced sleep hygiene Patient can try [id number] melatonin p.r.n. or Benadryl p.r.n. Orders: Referrals Counseling Referral F41.9 - Anxiety disorder, unspecified Coding Level of Care Code Est Pt Prev Care 18-39y(65388) Diagnoses Gastritis K29.30 Gastritis type: superficial Chronicity: chronic Gastritis bleeding: without bleeding Anxiety F41.9 Elevated glucose level R73.09 Adult general medical exam Z00.00 Insomnia G47.00 Additional Codes MARK-7 Assessment Billing - MARK-7 Assessment Tool: MARK-7 Assessment [id number] ([id number])
== END 2022-11-28 09:09 | disposition home or self-care (01) ==
PROVIDERS: PCP Nurse Practitioner Family; Visit Provider Nurse Practitioner Family
DX: Z00.00 Encounter for general adult medical examination without abnormal findings (principal); F41.9 Anxiety disorder, unspecified; K29.30 Chronic superficial gastritis without bleeding; R73.09 Other abnormal glucose; G47.00 Insomnia, unspecified
CPT/HCPCS: 99395

== ENCOUNTER 2022-12-16 11:27 | Outpatient (AMB) | payer OTHER, SELFPAY ==
--- NOTE | 2022-12-16 11:37 | A.OFFVIS_ITS ---
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 Use Compazine as needed. Eat smaller meals and more often. Continue taking PPI in the morning and sucralfate at noon and at bedtime. Postprandial epigastric pain Occasional postprandial epigastric pain. Avoid dietary triggers and late night snacking. Avoid lactose. Gastric emptying study is invalid and we can not make a diagnosis of gastroparesis. Patient seems to be feeling better after eating. Possibly she needs some little bit extra time to stay on sucralfate and PPI Postprandial abdominal bloating Postprandial abdominal bloating occasionally. Low FODMAP diet discussed with patient. List of food recommended as well as list of food to avoid given to patient. Gastritis Continue PPI and sucralfate as mentioned above. Dietary triggers. Offered nutrition help to patient and patient declined at this time. Patient states that she will be doing this on her own and will call our office if she will not be successful. I will see patient in 1 month, sooner on as needed basis. Patient is agreeable to this plan and verbalizes understanding instructions. She was given the opportunity to ask questions and all questions answered. ? TODAY'S VISIT Patient is here today for follow-up and to discuss gastric emptying study. Normal gastric emptying study. Patient reports that she has been doing better. Patient is able to keep food down. No nausea or vomiting for over a week. Patient therapist on Thursday. Occasional dyspepsia without dysphagia and odynophagia. Patient is taking Nexium in the morning and sucralfate twice a day. Does not need to use Compazine often. Patient states that Zofran was not helpful, was making her pain worse. [facility] Medical History Anxiety Encounter to establish care Gastritis Surgical History History of esophagogastroduodenoscopy (EGD) [place] teeth extracted Family History Mother Asthma Maternal Grandfather Lung cancer Father No problems noted. Social History Housing: House Alcohol intake: never Patient Tobacco Use Status: Never used Tobacco e-Cigarette/Vaping Use: Never Used service: No Current occupational status: employed Cognitive needs: No Hearing needs: No Vision needs: No Review of Systems Const Denies weight gain and Denies weight loss ENT Reports no additional complaints, Denies dysphagia and Denies odynophagia Card Reports no additional complaints Resp Reports no additional complaints GI Denies abdominal pain, Denies belching, Denies melena, Denies bloating, Denies change in bowel habits, Denies dysphagia, Denies excessive flatus, Reports dyspepsia, Reports heartburn, Denies diarrhea, Denies loose stools, Denies nausea, Denies odynophagia and Denies vomiting Reports no additional complaints Musc Reports no additional complaints Neuro Reports no additional complaints Psych Reports no additional complaints Endo Reports no additional complaints Physical Exam Vital Signs: Last Vital Signs Pulse 91 12/16/22 11:38 BP 93/60 12/16/22 11:38 BMI result Body Mass Index 20.8 Const General: healthy appearing, no acute distress and well developed Nutritional Appearance: well nourished Orientation/consciousness: patient oriented x3 HEENT Head: Yes normal to inspection, Yes normocephalic and Yes atraumatic Face and sinus: Yes normal facial exam Mouth: Normal oral and palatal mucosa present Throat: Yes posterior oropharynx normal, Yes tonsils normal and Yes uvula midline Eyes General: appearance normal, both eyes and all related structures Neck Neck: Yes normal visual inspection, Yes full ROM and Yes trachea midline Thyroid: Thyroid normal Resp Effort & Inspection: normal respiratory effort, able to speak in complete sentences, no tracheal deviation and symmetric chest movement Auscultation: clear to auscultation bilaterally Cardio Rate: regular rate Heart sounds: S1 normal heart sound present and S2 normal heart sound present GI Inspection: Yes normal to inspection and No distended Palpation (GI): Soft to palpation, not firm, nontender and No hepatosplenomegaly present Auscultation: normal bowel sounds General: Yes no CVA tenderness Back/Spine/Pelvis Back: no CVA tenderness Skin General skin exam: elasticity normal, turgor normal and dry skin Neuro General: patient oriented x3 Psych Appearance: grossly normal Mental Status: mental status grossly normal Speech and movement: Normal speech and movement present Results Reviewed Results Reviewed: GASTRIC EMPTYING STUDY FINDINGS: There is good visualization of activity in the stomach immediately post ingestion. As the study progresses, there is good clearance of activity from the stomach and visualization of progressively increasing small bowel activity. By the end of the study, there is almost no retention noted in the stomach. Retention in the stomach at each time interval was: 1 hour 45% (normal 37%-90%) 2 hours 19% (normal 30%-60%) 3 hours 3% 4 hours was not calculated due to only 3% retention at 3 hours. NM/NM gastric emptying study IMPRESSION: Normal modified 4-hour gastric emptying study. Ensure-plus Brand supplement was used instead of radio-labeled eggs because of the patient's intolerance to eggs.? This supplement has been shown to closely mimic gastric emptying of labeled eggs. ? Assessment & Plan Assessment & Plan (1) Gastritis: Code(s): K29.70 - Gastritis, unspecified, without bleeding Qualifiers: Chronicity: chronic Gastritis bleeding: without bleeding Gastritis type: superficial Qualified Code(s): K29.30 - Chronic superficial gastritis without bleeding Plan: Most with gastritis. Continue sucralfate at bedtime. Continue Nexium in the morning. Patient was encouraged to avoid dietary triggers. Will send her for RAST allergy in test. Patient was encouraged to avoid gluten and lactose. Avoid processed food (2) Vomiting: Code(s): R11.10 - Vomiting, unspecified Qualifiers: Vomiting type: cyclical vomiting syndrome unrelated to migraine Qualified Code(s): R11.15 - Cyclical vomiting syndrome unrelated to migraine Plan: Continue Compazine on as needed basis. Eat smaller meals and more often. (3) Postprandial epigastric pain: Code(s): R10.13 - Epigastric pain Plan: Postprandial epigastric discomfort and occasional nausea. Patient will see therapist this Thursday. Continue avoiding dietary triggers in late night snacking. Staying upright for minimal 3 hours after meals discussed with patient. Patient does admit to eating late at night sometimes and going right to bed. I will see her in 3 months, sooner on as needed basis. Patient is agreeable to this plan and verbalizes understanding of instructions. She was given the opportunity to ask questions and all questions answered. Thank you for allowing me to participate in her care Orders: Orders Rast Allergen Today K21.9 - Gastro-esophageal reflux disease without esophagitis, K29.70 - Gastritis, unspecified, without bleeding, R10.13 - Epigastric pain, R11.10 - Vomiting, unspecified Medications: Refilled esomeprazole magnesium 20 mg PO DAILY 90 caps 2RF prochlorperazine (Compazine) 25 mg [place] BID PRN 12 ea 0RF nausea and vomiting R11.10 - Vomiting, unspecified sucralfate 1 g PO BID 60 tabs 2RF R19.7 - Diarrhea, unspecified Discontinued ondansetron Discontinued Reason: Doctor's Order 4 mg PO Q8H PRN 10 tabs 0RF nausea and vomiting Coding Level of Care Code Est Pt Level 4 (49378) Diagnoses Gastritis K29.30 Chronicity: chronic Gastritis bleeding: without bleeding Gastritis type: superficial Vomiting R11.15 Vomiting type: cyclical vomiting syndrome unrelated to migraine Postprandial epigastric pain R10.13 Time Spent (min) 35 Comment 20 minutes spent with patient and additional 15 minutes spent reviewing her records
[2022-12-16 11:38] VITALS: BP 93/60; PULSE 91; BMI 20.8
== END 2022-12-16 12:46 | disposition home or self-care (01) ==
PROVIDERS: PCP Nurse Practitioner Family; Visit Provider Nurse Practitioner Family
DX: K29.30 Chronic superficial gastritis without bleeding (principal); R11.15 Cyclical vomiting syndrome unrelated to migraine; R10.13 Epigastric pain
CPT/HCPCS: 99214

== ENCOUNTER 2022-12-16 11:27 | Outpatient (REF) | payer OTHER, SELFPAY | END 2022-12-16 11:28 | disposition home or self-care (01) | LOC: HO.LAB 11:27 | PROVIDERS: PCP Nurse Practitioner Family; Visit Provider Nurse Practitioner Family | DX: K21.9 Gastro-esophageal reflux disease without esophagitis (principal); K29.30 Chronic superficial gastritis without bleeding; R10.13 Epigastric pain; R11.15 Cyclical vomiting syndrome unrelated to migraine; R19.7 Diarrhea, unspecified | CPT/HCPCS: 36415; 86003 ==

== ENCOUNTER 2023-01-23 11:10 | Outpatient (REF) | payer OTHER, SELFPAY | END 2023-01-23 11:11 | disposition home or self-care (01) | LOC: HO.LAB 11:10 | PROVIDERS: PCP Nurse Practitioner Family; Visit Provider Advanced Practice Midwife | DX: N92.6 Irregular menstruation, unspecified (principal) | CPT/HCPCS: 36415; 84702 ==

== ENCOUNTER 2023-01-23 15:47 | Emergency (ER) | payer OTHER, SELFPAY ==
--- NOTE | ~2023-01-23 | US_ITS ---
EXAMINATION: US OBSTETRICAL ULTRASOUND CLINICAL INFORMATION: Abdominal pain and cramping. COMPARISON: None available. LMP: Unknown. Gestational age by maternal dates is 5 weeks 6 days. Estimated date of delivery by maternal dates is 09/19/2023. TECHNIQUE: Transabdominal imaging of pelvis is performed. FINDINGS: There is a single intrauterine gestational sac with visible yolk sac, embryo/fetus, and cardiac activity. There is no significant subchorionic hemorrhage or hematoma. HR: 105 beats per minute. CRL (crown rump length): 0.27 cm (5 weeks 6 days +/- 4 days). SANDRA (estimated date of delivery): 09/19/2023 +/- 4 days. MATERNAL ADNEXA: The right maternal ovary measures 4.7 x 2.5 x 2.4 cm. Simple anechoic cyst measures 2.2 x 2.0 x 2.4 cm The left maternal ovary measures 1.9 x 1.4 x 1.3 cm. No focal lesion seen. There is no significant maternal adnexal mass. No maternal pelvic ascites. US/US OB pelvic and transvaginal IMPRESSION: 1. Single intrauterine gestation with ultrasound gestational age of 5 weeks and 6 days +/- 4 days. 2. Estimated date of delivery is 09/19/2023 +/- 4 days. 3. Simple right ovarian cyst measuring 2.4 cm.
[2023-01-23 16:17] VITALS: BP 102/60; BP 168/70; PULSE 87; PULSE 96; RESP 16; TEMP 36.4; O2SAT 97; BMI 19.8
--- NOTE | 2023-01-23 16:17 | ED_ITS ---
HPI - General Adult General Chief complaint: General Medical Stated complaint: patient is presenting with abd pain, per ems Time Seen by Provider: 01/23/23 19:36 Source: patient, EMS, RN notes reviewed and old records reviewed Mode of arrival: EMS History of Present Illness HPI narrative: 22-year-old female with a past medical history of insomnia, gastritis, anxiety, OCD, presenting to the ED via EMS complaining of near syncopal episode while at work today. 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 Admits to 4 positive home test on Thursday, LMP end of October. Reports some nausea/morning sickness this week with intermittent lower abdominal pressure/cramping & feeling winded more easily. Denies headache, vision loss, CP, vomiting, diarrhea, dysuria, vaginal bleeding/discharge. Related Data Previous Rx's Medication Instructions Recorded epinephrine 0.3 mg/0.3 mL 0.3 mg (0.3 mL) IM Q4H PRN 09/18/22 injection, auto-injector (EpiPen anaphylaxis #2 ea 2-Paco) capsaicin 0.025 % topical cream 1 appl topical BID #50 grams 10/07/22 esomeprazole magnesium 20 mg 20 mg PO DAILY #90 caps 12/16/22 capsule,delayed release prochlorperazine 25 mg rectal 25 mg NH BID PRN nausea and 12/16/22 suppository (Compazine) vomiting #12 ea sucralfate 1 gram tablet 1 g PO BID #60 tabs 12/16/22 Allergies Allergy/AdvReac Type Severity Reaction Status Date / Time egg Allergy Severe Anaphylaxis Verified 12/16/22 11:39 Review of Systems 2 Review of Systems: Constitutional: No Fever, No Chills, No Fatigue, No Malaise ENT/Mouth: No Ear Pain, No Nasal Congestion, No sore throat, No Rhinorrhea, No Swallowing Difficulty Eyes: No Eye Pain, No Swelling, + Vision Changes Cardiovascular: No Chest Pain, No SOB, No Palpitations Respiratory: No Cough, No Sputum, No Dyspnea Gastrointestinal: +Nausea, No Vomiting, No Diarrhea, No Constipation, +Abdominal pain Genitourinary: No irregular bleeding, No Dysuria, No Urinary Frequency, No Hematuria, No Flank Pain, No vaginal bleeding or vaginal discharge Musculoskeletal: No joint pain, No Myalgias, No Joint Swelling Skin: No Skin Lesions, No rash Neuro: No Weakness, No Numbness, No Paresthesias, No Loss of Consciousness, + lightheaded, No Headache Yes all other systems are reviewed and are negative Constitutional: Constitutional: Reports as per HPI Neurologic: Denies Abnormal speech present [facility] Past Medical History Attestation statement: The following information was validated with the patient. Source: old records reviewed Medical History Missed menses Gastritis Anxiety Encounter to establish care Surgical History History of esophagogastroduodenoscopy (EGD) [place] teeth extracted Family History Family History Mother Asthma Maternal Grandfather Lung cancer Father No problems noted. Social History Social History Housing: House Alcohol intake: never Patient Tobacco Use Status: Never used Tobacco e-Cigarette/Vaping Use: Never Used Advance Directives: No Advance Directives Information Provided: No service: No Current occupational status: employed Cognitive needs: No Hearing needs: No Vision needs: No Physical Exam ED Vital Signs: Vital Signs - 24 hr 01/23/23 16:17 01/23/23 20:52 01/23/23 21:41 Temperature 97.6 F 98.3 F Pulse Rate 87 93 80 Respiratory Rate 16 16 Blood Pressure 102/60 98/71 103/56 L Pulse Oximetry 97 100 Oxygen Delivery Method Room Air Room Air 01/23/23 21:42 01/23/23 21:42 Temperature Pulse Rate 90 100 Respiratory Rate Blood Pressure 109/65 99/61 Pulse Oximetry Oxygen Delivery Method BMI result Body Mass Index 19.8 Const General: cooperative, healthy appearing, no acute distress, alert, awake and Physically active Orientation/consciousness: patient oriented x3 Limitations: no limitations HENMT Head: Yes normal to inspection and Yes atraumatic Ears: hearing grossly normal bilaterally General nose exam: Normal external nose present Face and sinus: Yes normal facial exam Throat: Yes posterior oropharynx normal, Yes tonsils normal, Yes uvula midline, No peritonsillar mass and No uvular edema Eyes General: appearance normal, both eyes and all related structures Pupils: Equal, round and reactive pupils present EOM: EOMs intact bilaterally Neck Neck: Yes normal visual inspection and Yes no meningeal signs Resp Effort & Inspection: normal respiratory effort and no respiratory distress Auscultation: clear to auscultation bilaterally, no crackles and no wheezes Cardio Rate: regular rate Heart sounds: S1 normal heart sound present and S2 normal heart sound present GI Inspection: Yes normal to inspection Palpation (GI): Soft to palpation, nontender, no guarding and not rigid Skin Rashes: no rashes Wounds: no wounds Neuro General: patient oriented x3, gait normal, tone normal, moves all extremities, no meningeal signs, no focal motor deficits and CN's II-XI intact bilaterally Cranial nerves: Yes CN's II-XII intact bilaterally and Yes Equal, round and reactive pupils present Cognition (Neuro): normal cognition Speech: No Abnormal speech present Gait exam (Neuro): Normal gait present Motor exam (neuro): 5/5 motor strength present throughout, Pronator motor function not present and no tremor noted Coordination: [id number] test normal Romberg Test: Negative Extrem General: Yes normal to inspection Course Course Course Narrative: RME- 22 year old female presents for evaluation of a near syncopal episode. She reports she is but does not know how far along because she just recently found. Her last menstrual cycle was in October. Plan for labs, EKG, orthostatic vital signs -1944--mild leukocytosis of 13.5, beta quant 28,151 consistent with 6-7 weeks gestation -UA contaminated >> will try to obtain new sample -2143--repeat UA not infected US OB pelvic and transvaginal IMPRESSION: 1. Single intrauterine gestation with ultrasound gestational age of 5 weeks and 6 days +/- 4 days. 2. Estimated date of delivery is 09/19/2023 +/- 4 days. 3. Simple right ovarian cyst measuring 2.4 cm -orthostatic vital signs negative. On re-evaluation patient reports symptomatic improvement. Provided with hard copy of ultrasound results. Recommended close OBGYN follow-up Results discussed with patient including worrisome signs and symptoms and strict return precautions, and when to return to the emergency department. They verbalized understanding and feel safe for discharge at this time. Medications Administered Discontinued Medications Generic Name Dose Route Start Last Admin Trade Name Freq PRN Reason Stop Dose Admin Sodium Chloride 1,000 mls @ 999 mls/hr 01/23/23 20:00 01/23/23 20:42 Ns IV 01/23/23 21:00 999 mls/hr .Q1H1M ANDREY Administration Medical Decision Making Medical Decision Making MDM Narrative: 22-year-old female with a past medical history of insomnia, gastritis, anxiety, OCD, presenting to the ED via EMS complaining of near syncopal episode while at work today. On exam vital signs stable, NAD, nontoxic appearing, reports symptomatic improvement at present. No focal neuro deficits, abdomen soft/nontender. Concern for related complication vs vasovagal vs dehydration/orthostasis. Low suspicion for CVA/TIA, ICH. Unlikely ACS/PE. Rule out ectopic Plan: Labs, UA, orthostatics, IVF, Ob ultrasound, reassess Please refer to course for remaining clinical decision making, interpretation of labs/imaging results, and discussions with consultants and/or family members. Differential Diagnosis Differential Diagnoses: The differential diagnosis associated with the presentation includes As above Admission/Observation Consideration of admission/observation: Escalation of care including admission/observation considered Lab Data [facility] Lab Attestation statement: I reviewed the patient's lab results. 01/23/23 17:04 01/23/23 17:04 Labs: Lab Results 01/23/23 01/23/23 Range/Units 17:04 20:37 WBC 13.5 H (4.8-10.8) X10*3/uL RBC 4.41 (4.20-5.50) X10*6/uL Hgb 13.1 (12.0-16.0) g/dl Hct 38.6 (37.0-47.0) % MCV 87.5 (80.0-98.0) fL MCH 29.7 (27.0-33.0) pg MCHC 33.9 (31.0-35.0) g/dl RDW 11.6 (11.0-16.0) % Plt Count 290 (160-400) X10*3/uL MPV 9.8 (9.4-12.3) fL Immature Gran % (Auto) 0.4 (0.0-0.4) % Neut % (Auto) 80.4 H (45-73) % Lymph % (Auto) 10.5 L (20-40) % Marshall % (Auto) 4.6 (2-11) % Eos % (Auto) 3.7 (0-4) % Baso % (Auto) 0.4 (0-2) % Lymph # (Auto) 1.4 (1.2-4.9) X10*3/uL [place] # (Auto) 0.6 (0.1-1.2) X10*3/uL Eos # (Auto) 0.5 H (0.0-0.4) X10*3/uL Baso # (Auto) 0.1 (0.0-0.2) X10*3/uL Abs Immat Gran (auto) 0.05 H (0.00-0.03) X10*3/uL Absolute Neuts (auto) 10.9 H (2.0-8.3) x10*3/uL Absolute Nucleated RBC 0.000 (0.0-0.012) X10*3/uL Nucleated RBC % (auto) 0.0 (0.0-0.2) /100WBC Sodium 136 (135-145) mmol/L Potassium 3.5 D (3.3-5.1) mmol/L Chloride 106 (96-108) mmol/L Carbon Dioxide 20 L (22-29) mmol/L Anion Gap 14 (12-20) BUN 13 (9-16) mg/dL Creatinine 0.73 (0.5-1.4) mg/dL Estim Creat Clear Calc 85.3 Estimated GFR > 60 Random Glucose 134 H (60-115) mg/dL Calcium 9.2 D (8.4-10.2) mg/dL Magnesium 2.2 (1.6-2.6) mg/dL Total Bilirubin 0.4 (0.0-1.0) mg/dL AST 13 (5-31) U/L ALT 9 (0-31) U/L Alkaline Phosphatase 66 (39-117) U/L Troponin I High Sens < 2.7 (<3.5-17.0) ng/L Total Protein 6.9 (6.5-8.0) g/dL Albumin 4.4 (3.5-5.0) g/dL Lipase 80 H (8-78) U/L Beta HCG, Quant 00483 mIU/mL Urine Color Dark Yellow Yellow Urine Appearance Cloudy Clear Urine pH 6.0 8.0 (5.0-9.0) Ur Specific [place] >= 1.030 H 1.015 (1.005-1.025) Urine Protein 100 (2+) H Negative (Neg-Trace) mg/dL Urine Glucose (UA) Negative Negative (Negative) mg/dL Urine Ketones 40 Negative (Negative) mg/dL Urine Blood Negative Negative (Negative) Urine Nitrite Negative Negative (Negative) Ur Leukocyte Esterase Moderate (2+) H Moderate (2+) H (Negative) Urine RBC 3-5 H 0-2 (0-2) /HPF Urine WBC 21-50 H 0-5 (0-5) /HPF Ur Squamous Epith Cells 11-20 3-5 (0-2) /HPF Calcium Oxalate Crystal Present Urine Bacteria 4+ 1+ (None Seen) Hyaline Casts 3-5 0-2 (0-2) /LPF Independent Interpretation I performed an independent interpretation of an: EKG (EKG normal sinus rhythm at a rate of 100. QTC 430. No previous EKGs to compare. No STEMI ) Radiology Impression Discussion of test interpretation with radiology: I have reviewed the radiologist's reading. Independent Historian Clinical information obtained from an independent historian. History obtained from or confirmed by: Spouse and EMS External Record Review External record reviewed: Inpatient record, Office record, Outpatient record, Prior outpatient labs, Prior outpatient radiology, Primary care record and Outside ED record Tests considered The following testing was considered but not selected: As above Discharge Plan Discharge Clinical Impression: Early stage of , Pre-syncope Patient Disposition: Home, Self-Care Instructions: (ED), Lightheadedness (ED) Additional Instructions: Your ultrasound confirmed an intrauterine at 5 weeks and 6 days. It is important for you to establish care with an OBGYN. Start taking vitamins. Follow rules. If you develop abdominal pain, vaginal bleeding, passing out episodes, chest pain or shortness of breath return to the emergency department immediately Prescriptions: No Action epinephrine [EpiPen 2-Paco] 0.3 mg/0.3 mL auto-injector 0.3 mg IM Q4H PRN (Reason: anaphylaxis) Qty: 2 0RF capsaicin 0.025 % cream 1 appl topical BID Qty: 50 0RF Rx Instructions: do not wash area for at least 30 min after application esomeprazole magnesium 20 mg capsule,delayed release(DR/EC) 20 mg PO DAILY Qty: 90 2RF prochlorperazine [Compazine] 25 mg suppository 25 mg NH BID PRN (Reason: nausea and vomiting) Qty: 12 0RF sucralfate 1 gram tablet 1 g PO BID Qty: 60 2RF Referrals: [facility] – [place] [facility] [Provider Group] Interventions: ED Discharge Assessment Last Done: 01/23/23 21:57 Discharge Date/Time: 01/23/23 21:57
--- NOTE | 2023-01-23 16:19 | ECG_ITS ---
Test Reason : pain Blood Pressure : / mmHG Vent. Rate : 100 BPM Atrial Rate : 100 BPM P-R Int : 152 ms QRS Dur : 088 ms QT Int : 334 ms P-R-T Axes : 073 058 037 degrees QTc Int : 430 ms Normal sinus rhythm Nonspecific T wave abnormality Abnormal ECG No previous ECGs available Referred By: Rudi Oviedo Electronically Signed By:CATIE FRASER MD
[2023-01-23 17:09] LABS: MANUAL DIFF FLAG NO
[2023-01-23 17:12] LABS: Basophils Absolute Auto 0.1 X10*3/uL (0.0-0.2); Basophils Percent Auto 0.4 % (0-2); Eosinophils Absolute Auto 0.5 X10*3/uL (0.0-0.4); Eosinophils Percent Auto 3.7 % (0-4); Hematocrit 38.6 % (37.0-47.0); Hemoglobin 13.1 g/dl (12.0-16.0); Imm Gran Abs Auto 0.05 X10*3/uL (0.00-0.03); Imm Gran Pct Auto 0.4 % (0.0-0.4); Lymphocytes Absolute Auto 1.4 X10*3/uL (1.2-4.9); Lymphocytes Percent Auto 10.5 % (20-40); Mean Corpuscular HGB Conc 33.9 g/dl (31.0-35.0); Mean Corpuscular Hemoglobin 29.7 pg (27.0-33.0); Mean Corpuscular Volume 87.5 fL (80.0-98.0); Mean Platelet Volume 9.8 fL (9.4-12.3); Monocytes Absolute Auto 0.6 X10*3/uL (0.1-1.2); Monocytes Percent Auto 4.6 % (2-11); Neutrophils Absolute Auto 10.9 x10*3/uL (2.0-8.3); Neutrophils Percent Auto 80.4 % (45-73); Platelet Count 290 X10*3/uL (160-400); Red Blood Count 4.41 X10*6/uL (4.20-5.50); Red Cell Distribution Width 11.6 % (11.0-16.0); White Blood Count 13.5 X10*3/uL (4.8-10.8)
[2023-01-23 17:14] LABS: Appearance Urine Cloudy; Color Urine Dark Yellow; Glucose Urine UA Negative (Negative); Leukocyte Esterase Urine Moderate (2+) (Negative); Nitrite Urine Negative (Negative); Specific Gravity - Urine >= 1.030 (1.005-1.025); UMIC TRIGGER UACC YES; Urine Blood Negative (Negative); Urine Ketones 40 mg/dL (Negative); Urine Protein 100 (2+) mg/dL (Neg-Trace)
[2023-01-23 17:30] LABS: Bacteria Urine 4+ (None Seen); Calcium Oxalate Crystals Urine Present; UACC Culture Trigger YES; WBC Urine 21-50 /HPF (0-5)
[2023-01-23 17:34] LABS: Alanine Aminotransferase 9 U/L (0-31); Albumin Level 4.4 g/dL (3.5-5.0); Alkaline Phosphatase 66 U/L (39-117); Anion Gap 14 (12-20); Aspartate Amino Transferase 13 U/L (5-31); Bilirubin Total 0.4 mg/dL (0.0-1.0); Blood Urea Nitrogen 13 mg/dL (9-16); Calcium 9.2 mg/dL (8.4-10.2); Carbon Dioxide 20 mmol/L (22-29); Chloride 106 mmol/L (96-108); Creatinine Clr Calc Pharmacy 85.3; Estimated Glomerular Filt Rate > 60; Glucose Random 134 mg/dL (60-115); Lipase 80 U/L (8-78); Potassium 3.5 mmol/L (3.3-5.1); Sodium 136 mmol/L (135-145); Total Protein 6.9 g/dL (6.5-8.0)
[2023-01-23 17:55] LABS: HCG Quantitative 28151 mIU/mL
[2023-01-23 20:25] LABS: Magnesium 2.2 mg/dL (1.6-2.6); Troponin-I High Sensitivity < 2.7 ng/L (<3.5-17.0)
[2023-01-23] MEDS: 0.9 % Sodium Chloride 1,000 ML 999 ML IV (20:42)
[2023-01-23 20:52] VITALS: BP 98/71; PULSE 93; RESP 16; TEMP 36.8; O2SAT 100
[2023-01-23 20:52] LABS: Appearance Urine Clear; Color Urine Yellow; Glucose Urine UA Negative (Negative); Leukocyte Esterase Urine Moderate (2+) (Negative); Nitrite Urine Negative (Negative); Specific Gravity - Urine 1.015 (1.005-1.025); UMIC TRIGGER UACC YES; Urine Blood Negative (Negative); Urine Ketones Negative (Negative); Urine Protein Negative (Neg-Trace)
[2023-01-23 21:39] LABS: Bacteria Urine 1+ (None Seen); Hyaline Casts Urine 0-2 /LPF (0-2); RBC Urine 0-2 /HPF (0-2); WBC Urine 0-5 /HPF (0-5)
[2023-01-23 21:41] VITALS: BP 103/56; PULSE 80
[2023-01-23 21:42] VITALS: BP 109/65; BP 99/61; PULSE 100; PULSE 90
== END 2023-01-23 21:57 | disposition home or self-care (01) ==
PROVIDERS: Physician Assistant; Emergency Provider Emergency Medicine
DX: O26.891 Other specified pregnancy related conditions, first trimester (principal); R55 Syncope and collapse; Z3A.01 Less than 8 weeks gestation of pregnancy
CPT/HCPCS: 36415; 76801; 76817; 80053; 81001; 83690; 83735; 84484; 84702; 85025; 87086; 93005; 99284

== ENCOUNTER 2023-01-26 11:53 | Outpatient (REF) | payer OTHER, SELFPAY | END 2023-01-26 11:54 | disposition home or self-care (01) | LOC: HO.US 11:53 | PROVIDERS: Visit Provider Advanced Practice Midwife | DX: Z13.89 Encounter for screening for other disorder (principal) ==

== ENCOUNTER 2023-01-30 09:41 | Outpatient (AMB) | payer OTHER, SELFPAY ==
--- NOTE | 2023-01-30 09:45 | MHC.OFFVIS ---
Intake Vital Signs 01/30/23 09:56 Height 5 ft 1 in Weight 100 lb BMI 18.9 BP 100/60 Intake Visit Reasons: Consult Intake Note: The patient agreed to use of a caregivers non medical during this encounter. Scribed for NIKKI Marquez by Leydi Michael, caregivers non medical, on 01/30/2023 at 10:18 am EST. Preschool Teacher Required: No Information Interpreted: non-clinical & clinical Accompanied by: Significant Other Allergies egg Allergy (Severe, Verified 01/30/23 09:56) Anaphylaxis Patient : Yes HPI HPI Comments History of Present Illness Details She is here for a consult. G1. EDC by early US= 09/19/23. ~7wks, FHR in low 100's on scan. Reports this is her first . Currently not taking PNV. Reports fatigue, nausea/ morning sickness and has not been eating well for the past of couple of weeks. History of gastritis, has routine meds for her nausea. Did not do well with Zofran in the past as if made her feel worse. Followed by GI. No VB or pelvic pain. Seen in the ED 01/23/23 for a near syncope episode. Denies having FH genetic issues, no other medical concerns. [facility] Medical History (Updated 01/30/23 @ 10:14 by Leydi Michael) Positive test Fatigue Nausea Pre-conception counseling Missed menses Gastritis Anxiety Encounter to establish care Surgical History History of esophagogastroduodenoscopy (EGD) [place] teeth extracted Family History Mother Asthma Maternal Grandfather Lung cancer Father No problems noted. Social History Housing: House Alcohol intake: never Patient Tobacco Use Status: Never used Tobacco e-Cigarette/Vaping Use: Never Used service: No Current occupational status: employed Cognitive needs: No Hearing needs: No Vision needs: No Female Reproductive History Menstrual Date of last menstrual period: 11/06/22 Physical Exam Vital Signs: Last Vital Signs BP 100/60 01/30/23 09:56 BMI result Body Mass Index 18.9 Const General: cooperative, healthy appearing, comfortable, no acute distress, well developed, alert and awake Results AMB Test Urine AMB Test Urine Positive Last Edit by Siobhan Smith CMA on 01/30/23 10:03 Results Reviewed Results Reviewed: Laboratory Last Values [facility] Clinic Positive 01/30/23 10:03 EXAMINATION: US OBSTETRICAL ULTRASOUND CLINICAL INFORMATION: Abdominal pain and cramping. COMPARISON: None available. LMP: Unknown. Gestational age by maternal dates is 5 weeks 6 days. Estimated date of delivery by maternal dates is 09/19/2023. TECHNIQUE: Transabdominal imaging of pelvis is performed. FINDINGS: There is a single intrauterine gestational sac with visible yolk sac, embryo/fetus, and cardiac activity. There is no significant subchorionic hemorrhage or hematoma. HR: 105 beats per minute. CRL (crown rump length): 0.27 cm (5 weeks 6 days +/- 4 days). SANDRA (estimated date of delivery): 09/19/2023 +/- 4 days. MATERNAL ADNEXA: The right maternal ovary measures 4.7 x 2.5 x 2.4 cm. Simple anechoic cyst measures 2.2 x 2.0 x 2.4 cm The left maternal ovary measures 1.9 x 1.4 x 1.3 cm. No focal lesion seen. There is no significant maternal adnexal mass. No maternal pelvic ascites. US/US OB pelvic and transvaginal IMPRESSION: 1. Single intrauterine gestation with ultrasound gestational age of 5 weeks and 6 days +/- 4 days. 2. Estimated date of delivery is 09/19/2023 +/- 4 days. 3. Simple right ovarian cyst measuring 2.4 cm. Assessment & Plan Assessment & Plan (1) Early stage of : Code(s): Z34.90 - Encounter for supervision of normal , unspecified, unspecified trimester Plan: Discussed: D/c Compazine in . Instructed to start PNV, Unisom and B6 vitamins for nausea. Rx sent to pharmacy. TURNER Gray to complete teaching on first trimester care for nausea today. Advised to eat healthy and stay hydrated. OB US ordered-check viability status with prior low FHR; schedule 1 week US and 1 week follow up in person for weight and med check follow up. If not able to keep food/fluids down, call office for sooner evaluation. Offered Phenergan for now, pt. prefers to wait ove the weekend and see how the B6 and Unisom helps. All of her questions and concerns were addressed to the best of my ability and shared decision making. She is agreeable to plan of care. (2) Nausea: Code(s): R11.0 - Nausea (3) Fatigue: Code(s): R53.83 - Other fatigue (4) Positive test: Code(s): Z32.01 - Encounter for test, result positive Orders: Orders AMB HCG Urine Test Today Z32.01 - Encounter for test, result positive US OB limited Today Z34.90 - Encounter for supervision of normal , unspecified, unspecified trimester Medications: New doxylamine succinate (Unisom (doxylamine)) 25 mg PO BEDTIME PRN 30 tabs 3RF sleep PNV [id number] 400 mcg-35 mg- 25 mg-5 mg ( Gummies) 1 tab PO DAILY 90 tabs 4RF pyridoxine (vitamin B6) 25 mg PO TID 90 tabs 0RF nausea and vomiting Coding Level of Care Code New Pt Level 3 (57375) Diagnoses Early stage of Z34.90 Nausea R11.0 Fatigue R53.83 Positive test Z32.01
[2023-01-30 09:56] VITALS: BP 100/60; BMI 18.9
== END 2023-01-30 10:42 | disposition home or self-care (01) ==
PROVIDERS: PCP Nurse Practitioner Family; Visit Provider Advanced Practice Midwife
DX: R11.0 Nausea (principal); R53.83 Other fatigue; Z32.01 Encounter for pregnancy test, result positive
CPT/HCPCS: 99203

== ENCOUNTER → 2023-01-30 09:41 | Outpatient (BNVA) | payer OTHER, SELFPAY | PROVIDERS: PCP Nurse Practitioner Family; Visit Provider Advanced Practice Midwife | DX: O26.891 Other specified pregnancy related conditions, first trimester (principal); R11.0 Nausea; O34.81 Maternal care for other abnormalities of pelvic organs, first trimester; N83.291 Other ovarian cyst, right side; Z3A.01 Less than 8 weeks gestation of pregnancy; Z32.01 Encounter for pregnancy test, result positive | CPT/HCPCS: 81025 ==

== ENCOUNTER 2023-02-05 07:40 | Outpatient (AMB) | payer OTHER, SELFPAY ==
--- NOTE | 2023-02-05 07:43 | MHC.OFFVIS ---
Intake Vital Signs 02/05/23 07:44 Height 5 ft 1 in Weight 102 lb BMI 19.3 BP 102/60 Intake Visit Reasons: 1 week weight/med check Accompanied by: Spouse Allergies egg Allergy (Severe, Verified 02/05/23 07:50) Anaphylaxis HPI HPI Comments History of Present Illness Details Janice is here today with her for a one week weight and med check in early with a history of nausea. She is doing better with B6 and Unisom overall. Her concerns are she is still having a difficult episodes of nausea and would like to consider a suppository medication at this time. She is able to eat when she feels well. Weight gain noted from last week of 2 pounds. No evidence of ketones today. She is doing well on her PN gummies. [facility] Medical History (Updated 01/30/23 @ 10:14 by Leydi Michael) Positive test Fatigue Nausea Pre-conception counseling Missed menses Gastritis Anxiety Encounter to establish care Surgical History History of esophagogastroduodenoscopy (EGD) [place] teeth extracted Family History Mother Asthma Maternal Grandfather Lung cancer Father No problems noted. Social History Housing: House Alcohol intake: never Patient Tobacco Use Status: Never used Tobacco e-Cigarette/Vaping Use: Never Used service: No Current occupational status: employed Cognitive needs: No Hearing needs: No Vision needs: No Physical Exam Vital Signs: Last Vital Signs BP 102/60 02/05/23 07:44 BMI result Body Mass Index 19.3 Const General: cooperative, healthy appearing and no acute distress Psych Appearance: grossly normal Thought content: Normal thought content present Results AMB Urinalysis, Automated UA Leukoctes 1 Nicki/uL Last Edit by SUGEY Swann on 02/05/23 07:56 UA Nitrite Negative Last Edit by SUGEY Swann on 02/05/23 07:56 UA Urobilinogen 0 mg/dL Last Edit by SUGEY Swann on 02/05/23 07:56 UA Protein 0 mg/dL Last Edit by SUGEY Swann on 02/05/23 07:56 UA pH 7.5 Last Edit by MIGUEL SwannA on 02/05/23 07:56 UA Blood 0 Ej/uL Last Edit by MIGUEL SwannA on 02/05/23 07:56 UA Specific [place] 1.015 Last Edit by MIGUEL SwannA on 02/05/23 07:56 UA Ketone Negative Last Edit by MIGUEL SwannA on 02/05/23 07:56 UA Bilirubin 0 mg/dL Last Edit by MIGUEL SwannA on 02/05/23 07:56 UA Glucose 0 mg/dL Last Edit by SUGEY Swann on 02/05/23 07:56 Results Reviewed Results Reviewed: Laboratory Last Values Urine pH (Auto) 7.5 02/05/23 07:56 Specific [place] (Auto) 1.015 02/05/23 07:56 Urine Protein (Auto) 0 mg/dL 02/05/23 07:56 Glucose (UA)(Auto) 0 mg/dL 02/05/23 07:56 Urine Ketones (Auto) Negative 02/05/23 07:56 Urine Blood (Auto) 0 Ej/uL 02/05/23 07:56 Urine Nitrite (Auto) Negative 02/05/23 07:56 Urine Bilirubin (Auto) 0 mg/dL 02/05/23 07:56 Urine Urobilinogen (Auto) 0 mg/dL 02/05/23 07:56 Leukocyte Esterase (Auto) 1 Nicki/uL 02/05/23 07:56 Assessment & Plan Assessment & Plan (1) Early stage of : Code(s): Z34.90 - Encounter for supervision of normal , unspecified, unspecified trimester Plan: Discussed: Diet-food selections, med use, additional Phenergan suppository when unable to tolerate foods, fluids. Do not use the Compazine. Keep ultrasound appointment for the am. Once reviewed, next step the office will reach out to book the nurse intake appointment and OB PE. To call for any concerns: VB, unable to keep foods/fluids down. All of her questions and concerns were addressed to the best of my ability and shared decision making. She is agreeable to the plan of care. . (2) related nausea, antepartum: Code(s): O26.899 - Other specified related conditions, unspecified trimester; R11.0 - Nausea Orders: Orders AMB Urinalysis Automated Today R11.0 - Nausea Medications: New promethazine do not give 3rd daily dose after evening meal or within 4hr before bed. Do not use Compazine additionally. 12.5 mg CO TID PRN 12 ea 0RF allergy symptoms Coding Level of Care Code Est Pt Level 3 (91768) Diagnoses Early stage of Z34.90 related nausea, antepartum O26.899; R11.0
[2023-02-05 07:44] VITALS: BP 102/60; BMI 19.3
== END 2023-02-05 08:16 | disposition home or self-care (01) ==
LOC: HO.HWS 07:40
PROVIDERS: PCP Nurse Practitioner Family; Visit Provider Advanced Practice Midwife
DX: O26.891 Other specified pregnancy related conditions, first trimester (principal); R11.0 Nausea
CPT/HCPCS: 99213

== ENCOUNTER → 2023-02-05 07:40 | Outpatient (BNVA) | payer OTHER, SELFPAY | PROVIDERS: PCP Nurse Practitioner Family; Visit Provider Advanced Practice Midwife | DX: O26.891 Other specified pregnancy related conditions, first trimester (principal); R11.0 Nausea; Z3A.01 Less than 8 weeks gestation of pregnancy | CPT/HCPCS: 81003; 99212 ==

== ENCOUNTER 2023-02-06 12:12 | Outpatient (REF) | payer OTHER, SELFPAY ==
--- NOTE | ~2023-02-06 | US_ITS ---
EXAMINATION: US OBSTETRICAL ULTRASOUND CLINICAL INFORMATION: Supervision of normal . COMPARISON: Obstetrical ultrasound dated 11/23/2022. LMP: Uncertain. Gestational age by maternal dates is uncertain. Estimated date of delivery by maternal dates is uncertain. TECHNIQUE: Ultrasound of the maternal pelvis is performed using transabdominal transducer. M-mode Doppler is also performed. FINDINGS: There is a single intrauterine gestational sac with visible yolk sac, embryo/fetus, and cardiac activity. There is no significant subchorionic hemorrhage or hematoma. HR: 156 beats per minute. CRL (crown rump length): 1.51 cm (8 weeks and 0 days +/- 4 days). SANDRA (estimated date of delivery): 09/18/2023 +/- 4 days. MATERNAL ADNEXA: The right maternal ovary measures 3.7 x 2.9 x 2.8 cm. The right ovary contains a 2.2 cm benign, simple dominant physiologic follicle, which requires no imaging follow-up. The left maternal ovary measures 2.8 x 1.2 x 1.8 cm. There is no significant maternal adnexal mass. No maternal pelvic ascites. US/US OB <= 14 weeks fetus IMPRESSION: 1. Single intrauterine gestation with ultrasound gestational age of 8 weeks and 0 days +/- 4 days. This corresponds closely with the estimated gestational age based upon the initial dating ultrasound 01/23/2023 of 7 weeks and 6 days. 2. No maternal adnexal mass or pelvic ascites.
== END 2023-02-06 12:13 | disposition home or self-care (01) ==
LOC: HO.US 12:12
PROVIDERS: PCP Nurse Practitioner Family; Visit Provider Advanced Practice Midwife
DX: Z34.91 Encounter for supervision of normal pregnancy, unspecified, first trimester (principal)
CPT/HCPCS: 76801

== ENCOUNTER 2023-02-19 09:45 | Outpatient (AMB) | payer OTHER, SELFPAY ==
--- NOTE | 2023-02-19 09:56 | A.OFFVISPN_ITS ---
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 Accompanied by: Significant Other Allergies egg Allergy (Severe, Verified 02/05/23 07:50) Anaphylaxis Medication List - Last Reconciled 02/19/23 by Carolynn Carrero LPN capsaicin 0.025% 1 appl topical BID doxylamine succinate (Unisom (doxylamine)) 25 mg PO BEDTIME PRN epinephrine (EpiPen 2-Paco) 0.3 mg (0.3 mL) IM Q4H PRN esomeprazole magnesium 20 mg PO DAILY PNV [id number] 400 mcg-35 mg- 25 mg-5 mg ( Gummies) 1 tab PO DAILY prochlorperazine (Compazine) 25 mg FL BID PRN promethazine 12.5 mg FL TID PRN pyridoxine (vitamin B6) 25 mg PO TID sucralfate 1 g PO BID Is last menstrual period known: Yes Last menstrual period: 11/10/22 Post menopausal: No Patient : Yes Do you need a note to return to daycare/school/sports/work: No PFSH Medical History (Updated 01/30/23 @ 10:14 by Leydi Michael) Positive test Fatigue Nausea Pre-conception counseling Missed menses Gastritis Anxiety Encounter to establish care Surgical History History of esophagogastroduodenoscopy (EGD) [place] teeth extracted Family History (Updated 02/19/23 @ 10:36 by Carolynn Carrero LPN) Mother Asthma Maternal Grandfather Lung cancer Father No problems noted. Maternal Grandmother Hx of diabetes mellitus Social History Housing: House Alcohol intake: never Patient Tobacco Use Status: Never used Tobacco e-Cigarette/Vaping Use: Never Used service: No Current occupational status: employed Cognitive needs: No Hearing needs: No Vision needs: No Female Reproductive History Menstrual Age of Menarche: 10 Duration of menses: 6-7 days Date of last menstrual period: 11/10/22 control method: none Total pregnancies: 1 Date of last pap smear: 12/18/21 History of abnormal pap smear: No History of STI: No History History 1 Elective abortions Para Spontaneous abortions Hx # Term Pregnancies Ectopic pregnancies Hx # Pregnancies Multiple births Education First Trimester Education Checklist Plans/Education - by Trimester Counseled: Yes HIV and other routine tests: discussed Infectious disease exposure: chicken pox immunity discussed, hepatitis risk discussed and tuberculosis exposure discussed Influenza vaccine: discussed (severe egg allergy) Nutrition and weight gain counseling: special diet: discussed Sexual activity: discussed Exercise: discussed Tobacco use: No Alcohol use: No Substance use: No Environmental/home/work hazards: discussed Domestic violence: discussed Travel: discussed Seatbelt use: discussed Toxoplasmosis precautions (cats/raw meat): discussed Childbirth education/discussion: symptoms education/discussion and group B strep education/discussion Risk factors identified by history: discussed Testing education: cystic fibrosis testing education done, sickle cell testing education done, thalassemia testing education done, TB testing education done, amniocentesis discussed and group B strep education danger signs: Yes education packet: Child education class information, symptoms, vitamins and iron, diet and weight gain, fish and mercury intake, listeriosis prevention, caffeine use, eating disorder history, exercise and activity, work issues, sexual activity, x-ray exposure, medication use, toxoplasmosis precautions, sauna/hot tub use, dental care and HIV education and counseling Mental health: discussed Anticipated course of care: discussed Indications for ultrasound: discussed Health center information: nature of practice discussed, personnel described, visit schedule reviewed, no show policy reviewed, ultrasounds policy reviewed, coverage 24 hours a day, participation of father in care and office visits and signs of miscarriage reviewed Questionnaire History History : 1 Visit SANDRA Calculator Estimated Delivery Date Method Current WG Current Estimate 09/18/23 Ultrasound #2 9w 6d Other Estimates 08/17/23 LMP (Uncertain) 14w 3d 09/19/23 Ultrasound #1 9w 5d Expected Delivery Route/Plan vaginal delivery Specific Issues/Plans Hx of Anxiety, weight loss, Hyperemesis. OB Visit Log Initial Weight: 46.266 kg Date -?-?-?-?-?-?-?-?-?-?-?-?- EGA Weight Gest Week Fundal Ht Present FHR move Efface % Edema BP PrePreg We Weight GTT -?-?-?-?-?-?-?-?-?-?-?-?- Glucose LV Protein Blood Type 02/19/23 -?-?-?-?-?-?-?--?-?-?-?-?- 9w 6d 45.019 kg (-1.247 kg) 45 .019 kg -?-?-?-?-?-?-?-?-?-?-?-?- Notes Visit Date: 02/19/23 Last Updated by: Carolynn Carrero LPN Janice is here today with her Himanshu for her Nurse intake. G1, Hx of irr menses. U/S#1 at 5.6 wks= SANDRA of 09/19/23,and U/S on 02/06/23=SANDRA of 09/18/23. Pt is having nausea and vomiting most days, but is also able to eat small amounts of foods. She was advised to try to keep her stomach full at all times, by grazing on fruit, veggies, Smoothies, Pretzels. She is taking Vit B6, and Unisom at bedtime if needed. She was also given a rx for Phenergan, but tries to only use it on her day off. She was asked to keep any eye on her weight, and call office if still continuing to have weight loss. She was advised she could try Ensure also if able to tolerate. She reorts an aversion to all meat at this time. She was advised to try jessy candies, tea, papaya enzyme tablets. Pt reports her MGM is diabetic and early 1 hr gtt will be added to her labs. She will complete labs in the next few weeks when feeling better. She is unsure if her Mother ever had Pre-eclampsia. Pt is scheduled for her OB PE next week. She is aware of delivery at [facility], and possible transfer if she became high risk. Discussed with pt how to reach provider after hours. Discussed NT u/s and labs for genetic testing if she wishes. They are aware all u/s will be at [facility]. D iscussed and given the packet. Pt does have hx of anxiety and feels it has escalated since becoming , she does have a therapist to reach out to. 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 Initial Infection History & Risk Profile History of STDs: No HIV risk evaluation: low risk Hepatitis B risk evaluation: low risk Patient or partner has history of Genital Herpes: No Varicella/chicken pox status: immunized Genetic Screening & Tie Fastener Symptoms since LMP: breast tenderness, nausea, vomiting Genetic Screening/Teratology Counseling - Includes patient, baby's father, or anyone in either family with: 1. Patient's age 35 years or older as of estimated date of delivery: No 2. Thalassemia (Cayman Islander, Slovenian, Mediterranean, or Background); MCV less than 80: Yes (fob mothers side.) 3. Neural Tube Defect (Meningomyelocele, Spina Bifida, or Anencephaly): No 4. Congenital Heart Defect: No 5. Down Syndrome: No 6. Shan-Sachs (Ashkenazi Confucianism, Cajun, Albanian Mexican): Yes 7. Josafat Disease (Ashkenazi Confucianism): No 8. Familial Dysautonomia (Ashkenazi Confucianism): No 9. Sickle Cell Disease or Trait (): No 10. Hemophilia or other blood disorders: No 11. Muscular Dystrophy: No 12. Cystic Fibrosis: No 13. [place]'s Chorea: No 14. Intellectual disability/Autism: No 15. Other inherited genetic or chromosomal disorder: No 16. Maternal Metabolic Disorder (EG,TYPE 1 Diabetes, PKU): Yes 17. Patient or baby's father had a child with defects not listed above: No 18. Recurrent loss or a stillbirth: No 19. Medications (including supplements, vitamins, herbs or otc drugs)/illicit/recreational drugs/alcohol since last menstrual period: Yes Infection History 1. Live with someone with TB or exposed to TB: No 2. Rash or viral illness since last menstrual period: No 3. Hepatitis B,C: No Other (see comments) Source: [employer] [place] [employer] Assessment & Plan Assessment & Plan Orders: Orders CF Carrier Screen Today Z32.01 - Encounter for test, result positive US OB 1T nuc measure Today Z32.01 - Encounter for test, result positive Complete Blood Count no Diff Today Z32.01 - Encounter for test, result positive Syphilis Screen Today Z32.01 - Encounter for test, result positive Hepatitis C Antibody Today Z32.01 - Encounter for test, result positive Urine Culture Today - Encounter for test, result positive HIV Ab/Ag Today - Encounter for test, result positive Drug Screen Urine Today - Encounter for test, result positive Rubella IgG Antibody Today - Encounter for test, result positive Glucose 1 Hour PP 50gm Dose Today - Encounter for test, result positive Hepatitis B Surface Antigen Today - Encounter for test, result positive Varicella IgG Antibody Today - Encounter for test, result positive Screen Today - Encounter for test, result positive Coding Level of Care Code Established Pt Shonda Patient Type Established Medical Decision Making Low Complexity Time Spent (min) 60
[2023-02-19 10:28] VITALS: BMI 18.8
== END 2023-02-19 11:30 | disposition home or self-care (01) ==
PROVIDERS: PCP Nurse Practitioner Family; Visit Provider Advanced Practice Midwife
DX: Z34.90 Encounter for supervision of normal pregnancy, unspecified, unspecified trimester (principal)
CPT/HCPCS: 25942

== ENCOUNTER → 2023-02-19 09:45 | Outpatient (BNVA) | payer OTHER, SELFPAY | PROVIDERS: PCP Nurse Practitioner Family; Visit Provider Advanced Practice Midwife | DX: Z34.01 Encounter for supervision of normal first pregnancy, first trimester (principal); Z3A.09 9 weeks gestation of pregnancy | CPT/HCPCS: 99212 ==

== ENCOUNTER 2023-02-23 13:20 | Outpatient (AMB) | payer OTHER, SELFPAY ==
[2023-02-23 13:27] VITALS: BP 106/70; BMI 18.7
--- NOTE | 2023-02-23 13:27 | A.OFFVISPN_ITS ---
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: Christmas Tree Farm Manager Present (Danisha) Allergies egg Allergy (Severe, Verified 02/23/23 13:31) Anaphylaxis Medication List - Last Reconciled 02/23/23 by Ciara Phan CNM capsaicin 0.025% 1 appl topical BID doxylamine succinate (Unisom (doxylamine)) 25 mg PO BEDTIME PRN epinephrine (EpiPen 2-Paco) 0.3 mg (0.3 mL) IM Q4H PRN esomeprazole magnesium 20 mg PO DAILY PNV [id number] 400 mcg-35 mg- 25 mg-5 mg ( Gummies) 1 tab PO DAILY prochlorperazine (Compazine) 25 mg ID BID PRN promethazine 12.5 mg ID TID PRN pyridoxine (vitamin B6) 25 mg PO TID sucralfate 1 g PO BID PFSH Medical History (Updated 02/23/23 @ 15:22 by Ciara Phan CNM) Positive test Fatigue Nausea Pre-conception counseling Missed menses Gastritis Anxiety Encounter to establish care Surgical History History of esophagogastroduodenoscopy (EGD) [place] teeth extracted Family History (Updated 02/19/23 @ 10:36 by Carolynn Carrero LPN) Mother Asthma Maternal Grandfather Lung cancer Father No problems noted. Maternal Grandmother Hx of diabetes mellitus Social History Housing: House Alcohol intake: never Patient Tobacco Use Status: Never used Tobacco e-Cigarette/Vaping Use: Never Used service: No Current occupational status: employed Cognitive needs: No Hearing needs: No Vision needs: No Female Reproductive History Menstrual Age of Menarche: 10 History History 1 Elective abortions Para Spontaneous abortions Hx # Term Pregnancies Ectopic pregnancies Hx # Pregnancies Multiple births Questionnaire [place] Depression [place] Depression Scale I have been able to laugh and see the funny side of things: As much as I always could I have looked forward with enjoyment to things: Rather less than I used to I have blamed myself unnecessarily when things went wrong: Yes, some of the time I have been anxious or worried for no reason: Yes, sometimes I have felt scared of panicky for no very good reason at all: No, not so much Things have been getting on top of me: No, most of the time I have coped quite well I have been so unhappy that I have had difficulty sleeping: Not very often I have felt sad or miserable: Yes, quite often I have been so unhappy that I have been crying: Only occasionally The thought of harming myself has occurred to me: Never 11 Visit SANDRA Calculator Estimated Delivery Date Method Current WG Current Estimate 09/18/23 Ultrasound #2 10w 3d Other Estimates 08/17/23 LMP (Uncertain) 15w 0d 09/19/23 Ultrasound #1 10w 2d Expected Delivery Route/Plan vaginal delivery Specific Issues/Plans Hx of Anxiety, weight loss, Hyperemesis. OB Visit Log Initial Weight: 102 lb Date -?-?-?-?-?-?-?-?-?-?-?-?- EGA Weight Gest Week Fundal Ht Present FHR move Efface % Edema BP PrePreg We Weight GTT -?-?-?-?-?-?-?-?-?-?-?-?- Glucose LV Protein Blood Type 02/19/23 -?-?-?-?-?-?-?-?-?-?-?-?- 9w 6d 99 lb 4 oz (-2 lb 12 oz) 99 lb 4 oz -?-?-?-?-?-?-?-?-?-?-?-?- 02/23/23 -?-?-?-?-?-?-?-?-?-?-?-?- 10w 3d 99 lb (-3 lb) 160 106/70 99 lb -?-?-?-?-?-?-?-?-?-?-?-?- Notes Visit Date: 02/23/23 Last Updated by: Ciara Phan CNM patient is here for her initial PE OB visit with her . She invited him hand because she was nervous. She has been dealing with a lot of nausea she says the vitamin B6 does help and she takes Phenergan on her days off and she takes the Unisom at night she has been constipated also but he some prune juice this morning and they have not tried it yet but he was hoping that would help her. She has had gastric problems in the past with acid reflux etc. so it is hard to tell what is related to the and what is that she stop the medications at the beginning of the . Her constipation has gotten worse and now it is 3 days since she has been to the bathroom sometime she feels bloated and once she had a really bad pain in her stomach. She has not had any bleeding she has had 2 ultrasounds for dating that say she is due the beginning of September and since she has a history of irregular periods we are using the ultrasound SANDRA she does have her nuchal translucency ultrasound set up for 1126 after at [facility]. 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 She did not get the OB lab work yet she thought that she could wait a few weeks to get that and she was waiting a little bit until she could tolerate the sugar drink as she is afraid that that will come up if she drinks it. She scored 11 on the EPDS scale but she thinks it might be made worse by how she is feeling with the nausea. She does have a therapist but she has not seen her in a month because of the therapist needing to reschedule for a in the family. She does intend to reschedule. She and her have been for 3 years. They were trying for couple of years and then she kind a gave up and then it just happened. she used to go to [facility] when she was younger or [facility] she is not sure which and she did have a Pap smear done sometime in 2021 she says she was told it was fine and she would need another 1 for 3 years. also reviewed that very often there may be occasions when transfer is necessary in and reviewed the options of care at [facility] but because of the driving issues she chose to come here. Visit Date: 02/19/23 Last Updated by: Carolynn Carrero LPN Janice is here today with her Himanshu for her Nurse intake. G1, Hx of irr menses. U/S#1 at 5.6 wks= SANDRA of 09/19/23,and U/S on 02/06/23=SANDRA of 09/18/23. Pt is having nausea and vomiting most days, but is also able to eat small amounts of foods. She was advised to try to keep her stomach full at all times, by grazing on fruit, veggies, Smoothies, Pretzels. She is taking Vit B6, and Unisom at bedtime if needed. She was also given a rx for Phenergan, but tries to only use it on her day off. She was asked to keep any eye on her weight, and call office if still continuing to have weight loss. She was advised she could try Ensure also if able to tolerate. She reorts an aversion to all meat at this time. She was advised to try jessy candies, tea, papaya enzyme tablets. Pt reports her MGM is diabetic and early 1 hr gtt will be added to her labs. She will complete labs in the next few weeks when feeling better. She is unsure if her Mother ever had Pre-eclampsia. Pt is scheduled for her OB PE next week. She is aware of [place] [facility] and possible transfer if she became high risk. Discussed with pt how to reach provider after hours. Discussed NT u/s and labs for genetic testing if she wishes. They are aware all u/s will be at [facility]. Discussed and given the packet. Pt does have hx of anxiety and feels it has escalated since becoming , she does have a therapist to reach out to. 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 Initial Infection History & Risk Profile History of STDs: No HIV risk evaluation: low risk Hepatitis B risk evaluation: low risk Patient or partner has history of Genital Herpes: No Varicella/chicken pox status: immunized Genetic Screening & General Farm Hand Symptoms since LMP: breast tenderness, nausea, vomiting Genetic Screening/Teratology Counseling - Includes patient, baby's father, or anyone in either family with: 1. Patient's age 35 years or older as of estimated date of delivery: No 2. Thalassemia (Armenian, Chadian, Mediterranean, or Background); MCV less than 80: Yes (fob mothers side.) 3. Neural Tube Defect (Meningomyelocele, Spina Bifida, or Anencephaly): No 4. Congenital Heart Defect: No 5. Down Syndrome: No 6. Shan-Sachs (Ashkenazi Yazdanism, Cajun, Indonesian St Helenian): Yes 7. Josafat Disease (Ashkenazi Yazdanism): No 8. Familial Dysautonomia (Ashkenazi Yazdanism): No 9. Sickle Cell Disease or Trait (): No 10. Hemophilia or other blood disorders: No 11. Muscular Dystrophy: No 12. Cystic Fibrosis: No 13. [place]'s Chorea: No 14. Intellectual disability/Autism: No 15. Other inherited genetic or chromosomal disorder: No 16. Maternal Metabolic Disorder (EG,TYPE 1 Diabetes, PKU): Yes 17. Patient or baby's father had a child with defects not listed above: No 18. Recurrent loss or a stillbirth: No 19. Medications (including supplements, vitamins, herbs or otc drugs)/illicit/recreational drugs/alcohol since last menstrual period: Yes Infection History 1. Live with someone with TB or exposed to TB: No 2. Rash or viral illness since last menstrual period: No 3. Hepatitis B,C: No Other (see comments) Source: [employer] [place] [employer] Results AMB Urinalysis, Automated UA Leukoctes 0.5 Nicki/uL Last Edit by SUGEY Swann on 02/23/23 13:4 8 UA Nitrite Negative Last Edit by SUGEY Swann on 02/23/23 13:48 UA Urobilinogen 0 mg/dL Last Edit by SUGEY Swann on 02/23/23 13:4 8 UA Protein 0.5 mg/dL Last Edit by SUGEY Swann on 02/23/23 13:48 UA pH 5.5 Last Edit by SUGEY Swann on 02/23/23 13:48 UA Blood 0 Ej/uL Last Edit by SUGEY Swann on 02/23/23 13:48 UA Specific [place] 1.030 Last Edit by Sonia SUGEY Evangelista on 02/23/23 13:48 UA Ketone Positive Last Edit by SoniaSUGEY Walker on 02/23/23 13:48 trace Sonia Whyte Cezar 02/23/23 13:48 UA Bilirubin 0 mg/dL Last Edit by Sonia SUGEY Evangelista on 02/23/23 13:48 UA Glucose 0 mg/dL Last Edit by SUGEY Swann on 02/23/23 13:48 Exam Const Constitutional General: cooperative, healthy appearing, comfortable, no acute distress and well developed Nutritional Appearance: average body habitus and well nourished Constitutional Limitations: no limitations [facility] Head: normocephalic and other Teeth and gingiva: dentition normal and gingiva normal Neck Thyroid: Thyroid normal Chest Breast/axilla inspection: normal inspection of the breasts and Other (nipples etelvina well) Breast/axilla palpation: normal palpation of the breasts and normal palpation of the axillae Resp Effort & Inspection: normal respiratory effort Cardio Rate: regular rate Rhythm: regular rhythm GI Inspection (GI): normal to inspection General Exam: Yes no CVA tenderness External Female Exam: normal external appearance Speculum exam - vagina: normal appearance of the vagina, normal discharge and other (normal appearance to vaginal secretions) Speculum Exam - Cervix: normal appearance of the cervix Bimanual exam- vagina & uterus: normal bimanual exam, uterine size normal (consistant w dating), consistency normal (consitent w gestational age), uterine mobility normal and uterine shape normal (c/w gestational age) Bimanual Exam- Adnexa, other: normal adnexae, no masses and normal (teaching re kegels done) Pelvic Support: normal (teaching re kegels done) OB/external & speculum: external exam normal Manual OB Exam: other (cervix =long/thick/closed/ and consistent w obstetric history) Results Reviewed Results Reviewed: Laboratory Last Values Urine pH (Auto) 5.5 02/23/23 13:36 Specific [place] (Auto) 1.030 02/23/23 13:36 Urine Protein (Auto) 0.5 mg/dL 02/23/23 13:36 Glucose (UA)(Auto) 0 mg/dL 02/23/23 13:36 Urine Ketones (Auto) Positive 02/23/23 13:36 Urine Blood (Auto) 0 Ej/uL 02/23/23 13:36 Urine Nitrite (Auto) Negative 02/23/23 13:36 Urine Bilirubin (Auto) 0 mg/dL 02/23/23 13:36 Urine Urobilinogen (Auto) 0 mg/dL 02/23/23 13:36 Leukocyte Esterase (Auto) 0.5 Nicki/uL 02/23/23 13:36 Assessment & Plan Assessment & Plan (1) Supervision of normal first : Comment: SANDRA 09/18/2023 per early ultrasounds. Code(s): Z34.00 - Encounter for supervision of normal first , unspecified trimester Category: Medical (2) Nausea and vomiting in : Code(s): O21.9 - Vomiting of , unspecified Category: Medical (3) Constipation during : Code(s): O99.619 - Diseases of the digestive system complicating , unspecified trimester; K59.00 - Constipation, unspecified Category: Medical Orders: Orders CT NG by PCR Today Z20.2 - Contact with and (suspected) exposure to infections with a predominantly sexual mode of transmission AMB Urinalysis Automated Today Z34.90 - Encounter for supervision of normal , unspecified, unspecified trimester Bacterial Vaginosis Panel Today Z20.2 - Contact with and (suspected) exposure to infections with a predominantly sexual mode of transmission Coding Level of Care Code [place] Diagnoses Supervision of normal first Z34.00 Nausea and vomiting in O21.9 Constipation during O99.619; K59.00
== END 2023-02-23 15:18 | disposition home or self-care (01) ==
LOC: HO.HWS 13:20
PROVIDERS: PCP Nurse Practitioner Family; Visit Provider Advanced Practice Midwife
DX: Z34.00 Encounter for supervision of normal first pregnancy, unspecified trimester (principal); O21.9 Vomiting of pregnancy, unspecified; O99.619 Diseases of the digestive system complicating pregnancy, unspecified trimester; K59.00 Constipation, unspecified; Z34.90 Encounter for supervision of normal pregnancy, unspecified, unspecified trimester
CPT/HCPCS: 25942

== ENCOUNTER 2023-02-23 13:20 | Outpatient (REF) | payer OTHER, SELFPAY | END 2023-02-23 13:21 | disposition home or self-care (01) | LOC: HO.LNP 13:20 | PROVIDERS: PCP Nurse Practitioner Family; Visit Provider Advanced Practice Midwife | DX: O21.9 Vomiting of pregnancy, unspecified (principal); O99.611 Diseases of the digestive system complicating pregnancy, first trimester; K59.00 Constipation, unspecified; Z3A.10 10 weeks gestation of pregnancy | CPT/HCPCS: 81003; 99212 ==

== ENCOUNTER 2023-02-23 15:04 | Outpatient (REF) | payer OTHER, SELFPAY ==
[2023-02-24 10:10] LABS: BV Int Neg Control Negative (Negative); BV Int Pos Control Positive (Positive)
[2023-02-24 10:58] LABS: CT PCR NOT DETECTED (Not Detect.); NG PCR NOT DETECTED (Not Detect.)
== END 2023-02-23 15:05 | disposition home or self-care (01) ==
LOC: HO.LAB 15:04
PROVIDERS: Visit Provider Advanced Practice Midwife
DX: Z20.2 Contact with and (suspected) exposure to infections with a predominantly sexual mode of transmission (principal)
CPT/HCPCS: 0353U; 87480; 87510; 87660

== ENCOUNTER 2023-03-17 08:34 | Outpatient (AMB) | payer OTHER, SELFPAY ==
--- NOTE | 2023-03-17 08:44 | A.OFFVIS_ITS ---
Intake Vital Signs 03/17/23 08:48 Height 5 ft 1 in Weight 103 lb 9.876 oz BMI 19.6 BP 101/60 Blood Pressure Location Lt brachial Position Sitting Pulse 100 Intake Visit Reasons: 3 month follow up Intake Note: Janice presents in the office as a 3 month follow up. CC: She states she is 13 weeks . The Nexium and Sucralfate were helping with her digestion but now she cannot take it she is struggling. She is not sure what to do about that at the moment. She is having trouble keeping foods down. She throws up once a week instead of everyday. Allergies egg Allergy (Severe, Verified 02/23/23 13:31) Anaphylaxis sesame seed Allergy (Mild, Verified 03/17/23 08:49) Unknown HPI 3 month follow up HPI Details LAST VISIT Gastritis Diagnosed with gastritis. Continue sucralfate at bedtime. Continue Nexium in the morning. Patient was encouraged to avoid dietary triggers. Will send her for RAST allergy in test. Patient was encouraged to avoid gluten and lactose. Avoid processed food Vomiting Continue Compazine on as needed basis. Eat smaller meals and more often. Postprandial epigastric pain Postprandial epigastric discomfort and occasional nausea. Patient will see therapist this Thursday. Continue avoiding dietary triggers in late night snacking. Staying upright for minimal 3 hours after meals discussed with patient. Patient does admit to eating late at night sometimes and going right to bed. I will see her in 3 months, sooner on as needed basis. Patient is agreeable to this plan and verbalizes understanding of instructions. She was given the opportunity to ask questions and all questions answered. ? Thank you for allowing me to participate in her care Plan Orders Orders Rast Allergen Today K21.9 - Gastro-esophageal reflux disease without esophagitis, K29.70 - Gastritis, unspecified, without bleeding, R10.13 - Epigastric pain, R11.10 - Vomiting, unspecified Medications Refilled esomeprazole magnesium 20 mg PO DAILY 90 caps 2RF prochlorperazine (Compazine) 25 mg IA BID PRN 12 ea 0RF nausea and vomiting R11.10 - Vomiting, unspecified sucralfate 1 g PO BID 60 tabs 2RF R19.7 - Diarrhea, unspecified Discontinued ondansetron Discontinued Reason: Doctor's Order 4 mg PO Q8H PRN 10 tabs 0RF nausea and vomiting TODAY'S VISIT: Patient is here today for follow-up. Patient reports that she has been feeling little better, however unable to take Nexium or sucralfate due to . Patient is 13 weeks , was given Reglan 10 mg from her OBGYN provider, however has not picked that up from the pharmacy yet. Patient reports that she will have episode of vomiting about once a week. Patient is trying to eat as much as she can. Reports occasional epigastric discomfort postprandially. Patient reports occasional dyspepsia without dysphagia or odynophagia. Reports that she is moving her bowels well. Denies any abdominal discomfort or cramping. [facility] Medical History Positive test Fatigue Nausea Pre-conception counseling Missed menses Gastritis Anxiety Encounter to establish care Surgical History History of esophagogastroduodenoscopy (EGD) [place] teeth extracted Family History Mother Asthma Maternal Grandfather Lung cancer Father No problems noted. Maternal Grandmother Hx of diabetes mellitus Social History Housing: House Alcohol intake: never Patient Tobacco Use Status: Never used Tobacco e-Cigarette/Vaping Use: Never Used service: No Current occupational status: employed Cognitive needs: No Hearing needs: No Vision needs: No Female Reproductive History Menstrual Age of Menarche: 10 Review of Systems Const Denies weight gain and Denies weight loss ENT Reports no additional complaints, Denies dysphagia and Denies odynophagia Card Reports no additional complaints Resp Reports no additional complaints GI Denies abdominal pain, Denies belching, Denies melena, Denies bloating, Denies change in bowel habits, Denies dysphagia, Denies excessive flatus, Reports dyspepsia, Denies heartburn, Denies diarrhea, Denies loose stools, Reports nausea, Denies odynophagia and Reports vomiting (Occasional) Reports no additional complaints Musc Reports no additional complaints Neuro Reports no additional complaints Psych Reports no additional complaints Endo Reports no additional complaints Physical Exam Vital Signs: Last Vital Signs Pulse 100 03/17/23 08:48 BP 101/60 03/17/23 08:48 BMI result Body Mass Index 19.6 Const General: healthy appearing, no acute distress and well developed Nutritional Appearance: well nourished Orientation/consciousness: patient oriented x3 HEENT Head: Yes normal to inspection, Yes normocephalic and Yes atraumatic Face and sinus: Yes normal facial exam Mouth: Normal oral and palatal mucosa present Throat: Yes posterior oropharynx normal, Yes tonsils normal and Yes uvula midline Eyes General: appearance normal, both eyes and all related structures Neck Neck: Yes normal visual inspection, Yes full ROM and Yes trachea midline Thyroid: Thyroid normal Resp Effort & Inspection: normal respiratory effort, able to speak in complete sentences, no tracheal deviation and symmetric chest movement Auscultation: clear to auscultation bilaterally Cardio Rate: regular rate GI Inspection: Yes normal to inspection and No distended Palpation (GI): Soft to palpation, not firm, nontender and No hepatosplenomegaly present Auscultation: normal bowel sounds General: Yes no CVA tenderness Back/Spine/Pelvis Back: no CVA tenderness Skin General skin exam: elasticity normal, turgor normal and dry skin Neuro General: patient oriented x3 Psych Appearance: grossly normal Mental Status: mental status grossly normal Affect: normal affect Assessment & Plan Assessment & Plan (1) Nausea: Code(s): R11.0 - Nausea (2) Nausea and vomiting in : Code(s): O21.9 - Vomiting of , unspecified (3) Vomiting: Code(s): R11.10 - Vomiting, unspecified Qualifiers: Vomiting type: cyclical vomiting syndrome unrelated to migraine Qualified Code(s): R11.15 - Cyclical vomiting syndrome unrelated to migraine (4) GERD (gastroesophageal reflux disease): Code(s): K21.9 - Gastro-esophageal reflux disease without esophagitis Qualifiers: Esophagitis presence: without esophagitis Qualified Code(s): K21.9 - Gastro-esophageal reflux disease without esophagitis Plan Will decrease Reglan to 5 mg before meals. Patient was encouraged to take it before breakfast. Patient can take famotidine at bedtime. Patient will talk to her OBGYN to see if she can see technology solutions architect to help her with meal prepping. Patient was encouraged to drink protein shakes as well. Smaller meals and more often. Discussed with patient avoiding dietary triggers and late night snacking. Staying upright for minimum 3 hours after meals discussed with patient. Patient will report any additional symptoms and will return for office visit in 3 months, sooner on as needed basis. Patient is agreeable to this plan and verbalizes understanding of instructions. She was given the opportunity to ask questions and all questions answered. Thank you for allowing me to participate in her care Medications: New metoclopramide HCl (Reglan) Take 15 minutes before meals 5 mg PO TIDWMEAL PRN 120 tabs 0RF nausea and vomiting R11.0 - Nausea Discontinued esomeprazole magnesium Discontinued Reason: Patient no longer taking 20 mg PO DAILY 90 caps 2RF sucralfate Discontinued Reason: Patient no longer taking 1 g PO BID 60 tabs 2RF R19.7 - Diarrhea, unspecified metoclopramide HCl (Reglan) take 30 minutes before meals and at bedtime Discontinued Reason: Doctor's Order 10 mg PO Q6H PRN 90 tabs 0RF nausea and vomiting Coding Level of Care Code Est Pt Level 4 (08629) Diagnoses Nausea R11.0 Nausea and vomiting in O21.9 Cyclical vomiting syndrome not associated with migraine R11.15 Vomiting type: cyclical vomiting syndrome unrelated to migraine Gastroesophageal reflux disease without esophagitis K21.9 Esophagitis presence: without esophagitis Time Spent (min) 35 Comment 20 minutes spent with patient and additional 15 minutes spent reviewing her records
[2023-03-17 08:48] VITALS: BP 101/60; PULSE 100; BMI 19.6
== END 2023-03-17 09:10 | disposition home or self-care (01) ==
PROVIDERS: PCP Nurse Practitioner Family; Visit Provider Nurse Practitioner Family
DX: R11.15 Cyclical vomiting syndrome unrelated to migraine (principal); K21.9 Gastro-esophageal reflux disease without esophagitis
CPT/HCPCS: 99214

== ENCOUNTER → 2023-03-17 08:34 | Outpatient (BNVA) | payer OTHER, SELFPAY | PROVIDERS: PCP Nurse Practitioner Family; Visit Provider Nurse Practitioner Family | DX: O21.8 Other vomiting complicating pregnancy (principal); O99.611 Diseases of the digestive system complicating pregnancy, first trimester; K92.89 Other specified diseases of the digestive system; K21.9 Gastro-esophageal reflux disease without esophagitis; Z3A.13 13 weeks gestation of pregnancy | CPT/HCPCS: 99212 ==

== ENCOUNTER 2023-03-26 14:00 | Outpatient (AMB) | payer OTHER, SELFPAY ==
[2023-03-26 14:04] VITALS: BP 104/60; BMI 19.2
--- NOTE | 2023-03-26 14:04 | A.OFFVISPN_ITS ---
Intake Vital Signs 03/26/23 14:04 Height 5 ft 1 in Weight 101 lb 8 oz BMI 19.2 BP 104/60 Blood Pressure Location Lt brachial Position Sitting Intake Visit Reasons: ROBBIN Accompanied by: Significant Other Allergies egg Allergy (Severe, Verified 03/26/23 14:09) Anaphylaxis sesame seed Allergy (Mild, Verified 03/26/23 14:09) Unknown [facility] Medical History Positive test Fatigue Nausea Pre-conception counseling Missed menses Gastritis Anxiety Encounter to establish care Surgical History History of esophagogastroduodenoscopy (EGD) [place] teeth extracted Family History Mother Asthma Maternal Grandfather Lung cancer Father No problems noted. Maternal Grandmother Hx of diabetes mellitus Social History Housing: House Alcohol intake: never Patient Tobacco Use Status: Never used Tobacco e-Cigarette/Vaping Use: Never Used service: No Current occupational status: employed Cognitive needs: No Hearing needs: No Vision needs: No Female Reproductive History Menstrual Age of Menarche: 10 History History 1 Elective abortions Para Spontaneous abortions Hx # Term Pregnancies Ectopic pregnancies Hx # Pregnancies Multiple births Visit SANDRA Calculator Estimated Delivery Date Method Current WG Current Estimate 09/18/23 Ultrasound #2 14w 6d Other Estimates 08/17/23 LMP (Uncertain) 19w 3d 09/19/23 Ultrasound #1 14w 5d Expected Delivery Route/Plan vaginal delivery Specific Issues/Plans 22yr. old G 1 P EDC: by 09/19/23 by Blood type: Problem List: 1. Anxiety: EPDS at first tri=11. 2. Hyperemesis: B6, Unisom. 3. Family history maternal grandmother with diabetes: 1st trimester glucose test not done due to nausea and vomiting Testing: First Tri screen: negative NT scan: nl AFP: FAS: Glucose: early 28 wk glucose: CBC 1st Tri: 28 wk. 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 Transportation: Labor support: Plan: Infant Feeding Plans: control: OB Visit Log Initial Weight: 102 lb Date -?-?-?-?-?-?-?-?-?-?-?-?- EGA Weight Gest Week Fundal Ht Present FHR move Efface % Edema BP PrePreg We Weight GTT -?-?-?-?-?-?-?-?-?-?-?-?- Glucose LV Protein Blood Type 02/19/23 -?-?-?-?-?-?-?-?-?-?-?-?- 9w 6d 99 lb 4 oz (-2 lb 12 oz) 99 lb 4 oz -?-?-?-?-?-?-?-?-?-?-?-?- 02/23/23 -?-?-?-?-?-?-?-?-?-?-?-?- 10w 3d 99 lb (-3 lb) 160 106/70 99 lb -?-?-?-?-?-?-?-?-?-?-?-?- 03/26/23 -?-?-?-?-?-?-?-?-?-?-?-?- 14w 6d 101 lb 8 oz (-8 oz) 14 150 104/60 101 lb 8 oz -?-?-?-?-?-?-?-?-?-?-?-?- Notes Visit Date: 03/26/23 Last Updated by: Lisa Isabel CNM Note author: Lisa Isabel CNM. 14.6wk. ROBBIN. Present with her today. She did not realize she needed to do additional lab work down in our lab. The nuchal lucency results are negative and her 1st screen is normal negative. Taking PNV, Doing well with no concerns. Appetite improving, overall feeling better with her nausea and vomiting. Recently seen her GI provider for management her GERD., she attempts to stay well hydrated. Denies any LOF, VB, abd. pain or urinary symptoms. History of constipation has been attempting self help measures to correct, overall starting to improve. Reviewed: PTL s/s-LOF/Ctx's/VB, abdominal pain, when to seek emergent care. discomforts, self help measures. Encouraged a healthy well balanced diet, regular walking/exercise in . Hydrate well, 8-10 glasses of water daily. FAS ordered for 4-5 weeks out. Plan lab work today. RTO 4 weeks. Visit Date: 02/23/23 Last Updated by: Ciara Phan CNM patient is here for her initial PE OB visit with her . She invited him hand because she was nervous. She has been dealing with a lot of nausea she says the vitamin B6 does help and she takes Phenergan on her days off and she takes the Unisom at night she has been constipated also but he some prune juice this morning and they have not tried it yet but he was hoping that would help her. She has had gastric problems in the past with acid reflux etc. so it is hard to tell what is related to the and what is that she stop the medications at the beginning of the . Her constipation has gotten worse and now it is 3 days since she has been to the bathroom sometime she feels bloated and once she had a really bad pain in her stomach. She has not had any bleeding she has had 2 ultrasounds for dating that say she is due the beginning of September and since she has a history of irregular periods we are using the ultrasound SANDRA she does have her nuchal translucency ultrasound set up for 112 after at [facility]. 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 She did not get the OB lab work yet she thought that she could wait a few weeks to get that and she was waiting a little bit until she could tolerate the sugar drink as she is afraid that that will come up if she drinks it. She scored 11 on the EPDS scale but she thinks it might be made worse by how she is feeling with the nausea. She does have a therapist but she has not seen her in a month because of the therapist needing to reschedule for a in the family. She does intend to reschedule. She and her have been for 3 years. They were trying for couple of years and then she kind a gave up and then it just happened. she used to go to [facility] when she was younger or [facility] she is not sure which and she did have a Pap smear done sometime in 2021 she says she was told it was fine and she would need another 1 for 3 years. also reviewed that very often there may be occasions when transfer is necessary in and reviewed the options of care at [facility] but because of the driving issues she chose to come here. Visit Date: 02/19/23 Last Updated by: Carolynn Carrero LPN Janice is here today with her Himanshu for her Nurse intake. G1, Hx of irr menses. U/S#1 at 5.6 wks= SANDRA of 09/19/23,and U/S on 02/06/23=SANDRA of 09/18/23. Pt is having nausea and vomiting most days, but is also able to eat small amounts of foods. She was advised to try to keep her stomach full at all times, by grazing on fruit, veggies, Smoothies, Pretzels. She is taking Vit B6, and Unisom at bedtime if needed. She was also given a rx for Phenergan, but tries to only use it on her day off. She was asked to keep any eye on her weight, and call office if still continuing to have weight loss. She was advised she could try Ensure also if able to tolerate. She reorts an aversion to all meat at this time. She was advised to try jessy candies, tea, papaya enzyme tablets. Pt reports her MGM is diabetic and early 1 hr gtt will be added to her labs. She will complete labs in the next few weeks when feeling better. She is unsure if her Mother ever had Pre-eclampsia. Pt is scheduled for her OB PE next week. She is aware of delivery at [facility], and possible transfer if she became high risk. Discussed with pt how to reach provider after hours. Discussed NT u/s and labs for genetic testing if she wishes. They are aware all u/s will be at [facility]. Discussed and given the packet. Pt does have hx of anxiety and feels it has escalated since becoming , she does have a therapist to reach out to. 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 Results AMB Urinalysis, Automated UA Leukoctes 70 Nicki/uL Last Edit by Tatiana Servin MA on 03/26/23 14:17 UA Nitrite Negative Last Edit by Tatiana Servin MA on 03/26/23 14:17 UA Urobilinogen 3.5 mg/dL Last Edit by Tatiana Servin MA on 03/26/23 14:17 UA Protein 0 mg/dL Last Edit by Tatiana Servin MA on 03/26/23 14:17 UA pH 5.5 Last Edit by Tatiana Servin MA on 03/26/23 14:17 UA Blood 25 Ej/uL Last Edit by Tatiana Servin MA on 03/26/23 14:17 UA Specific Robertson 1.030 Last Edit by Tatiana Servin MA on 03/26/23 14:17 UA Ketone Negative Last Edit by Tatiana Servin MA on 03/26/23 14:17 UA Bilirubin 0 mg/dL Last Edit by Tatiana Servin MA on 03/26/23 14:17 UA Glucose 0 mg/dL Last Edit by Tatiana Servin MA on 03/26/23 14:17 Results Reviewed Results Reviewed: Laboratory Last Values Urine pH (Auto) 5.5 03/26/23 14:16 Specific Robertson (Auto) 1.030 03/26/23 14:16 Urine Protein (Auto) 0 mg/dL 03/26/23 14:16 Glucose (UA)(Auto) 0 mg/dL 03/26/23 14:16 Urine Ketones (Auto) Negative 03/26/23 14:16 Urine Blood (Auto) 25 Ej/uL 03/26/23 14:16 Urine Nitrite (Auto) Negative 03/26/23 14:16 Urine Bilirubin (Auto) 0 mg/dL 03/26/23 14:16 Urine Urobilinogen (Auto) 3.5 mg/dL 03/26/23 14:16 Leukocyte Esterase (Auto) 70 Nicki/uL 03/26/23 14:16 Coding Level of Care Code [place] Assessment & Plan Assessment & Plan Orders: Orders AMB Urinalysis Automated Today Z13.9 - Encounter for screening, unspecified US OB /maternal detail 1 Month Z34.00 - Encounter for supervision of normal first , unspecified trimester
== END 2023-03-26 14:48 | disposition home or self-care (01) ==
PROVIDERS: PCP Nurse Practitioner Family; Visit Provider Advanced Practice Midwife
DX: Z34.00 Encounter for supervision of normal first pregnancy, unspecified trimester (principal); Z13.9 Encounter for screening, unspecified
CPT/HCPCS: 25942

== ENCOUNTER 2023-03-26 14:00 | Outpatient (REF) | payer OTHER, SELFPAY ==
[2023-03-26 18:13] LABS: Hematocrit 36.6 % (37.0-47.0); Hemoglobin 12.3 g/dl (12.0-16.0); Mean Corpuscular HGB Conc 33.6 g/dl (31.0-35.0); Mean Corpuscular Hemoglobin 30.3 pg (27.0-33.0); Mean Corpuscular Volume 90.1 fL (80.0-98.0); Mean Platelet Volume 9.9 fL (9.4-12.3); Platelet Count 307 X10*3/uL (160-400); Red Blood Count 4.06 X10*6/uL (4.20-5.50)
[2023-03-27 07:11] LABS: Syphilis Screen Nonreactive (Nonreactive)
[2023-03-27 07:22] LABS: HBsAGNum1 0.32 S/CO (0.00-0.99); HIV AB/AG Nonreactive (Nonreactive); HIV Num 1 0.05 S/CO (0.00-0.99); Hepatitis B Surface Antigen Negative (Negative); ~Hepatitis C Antibody Nonreactive (Nonreactive)
[2023-03-27 17:13] LABS: Rubella IgG Antibody <0.90 Index
[2023-04-05 15:44] LABS: CF Ethnicity NG; Cystic Fibrosis NEGATIVE (NEGATIVE)
== END 2023-03-26 14:01 | disposition home or self-care (01) ==
LOC: HO.LAB 14:00
PROVIDERS: PCP Nurse Practitioner Family; Visit Provider Advanced Practice Midwife
DX: Z34.92 Encounter for supervision of normal pregnancy, unspecified, second trimester (principal); Z3A.14 14 weeks gestation of pregnancy
CPT/HCPCS: 81003; 81220; 85027; 86762; 86780; 86787; 86803; 87340; 87389; 99212

== ENCOUNTER 2023-06-30 11:42 | Outpatient (AMB) | payer OTHER, SELFPAY ==
[2023-06-30 11:58] VITALS: BP 107/59; PULSE 82; BMI 22.0
--- NOTE | 2023-06-30 11:58 | A.OFFVIS_ITS ---
Intake Vital Signs 06/30/23 11:58 Height 5 ft 1 in Weight 116 lb 6.465 oz BMI 22.0 BP 107/59 L Blood Pressure Location Rt brachial Position Sitting Pulse 82 Intake Visit Reasons: 3 month follow up Intake Note: Janice presents in the office as a 3 month follow up. CC: She states she is feeling better but she is concerned about metoclopramide side effects. She states that she was supposed to take it TID but it was too strong. She is now taking it in the morning and she states she usually takes a nap after because it makes her feel tired. She reports she has not thrown up since she was 14 weeks and that has helped keep foods down. She is having regular BMs once a day and states she feels her digestion is really fast. 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 Accompanied by: Self / Same As Patient Allergies egg Allergy (Severe, Verified 06/30/23 12:03) Anaphylaxis sesame seed Allergy (Mild, Verified 06/30/23 12:03) Unknown No Known Drug Allergies Allergy (Unknown, Verified 06/30/23 12:03) none Medication List - Last Reconciled 06/30/23 by Mindy Young, [employer] doxylamine succinate (Unisom (doxylamine)) 25 mg PO BEDTIME PRN epinephrine (EpiPen 2-Paco) 0.3 mg (0.3 mL) IM Q4H PRN famotidine 20 mg PO BEDTIME metoclopramide HCl (Reglan) 5 mg PO TIDWMEAL PRN PNV [id number] 400 mcg-35 mg- 25 mg-5 mg ( Gummies) 1 tab PO DAILY pyridoxine (vitamin B6) 25 mg PO TID HPI 3 month follow up HPI Details LAST VISIT Nausea Nausea and vomiting in Vomiting GERD (gastroesophageal reflux disease) Plan Will decrease Reglan to 5 mg before meals. Patient was encouraged to take it before breakfast. Patient can take famotidine at bedtime. Patient will talk to her OBGYN to see if she can see electric cell tender to help her with meal prepping. Patient was encouraged to drink protein shakes as well. Smaller meals and more often. Discussed with patient avoiding dietary triggers and late night snacking. Staying upright for minimum 3 hours after meals discussed with patient. Patient will report any additional symptoms and will return for office visit in 3 months, sooner on as needed basis. Patient is agreeable to this plan and verbalizes understanding of instructions. She was given the opportunity to ask questions and all questions answered. ? Thank you for allowing me to participate in her care Medications New metoclopramide HCl (Reglan) Take 15 minutes before meals 5 mg PO TIDWMEAL PRN 120 tabs 0RF nausea and vomiting R11.0 Discontinued esomeprazole magnesium Discontinued Reason: Patient no longer taking 20 mg PO DAILY 90 caps 2RF sucralfate Discontinued Reason: Patient no longer taking 1 g PO BID 60 tabs 2RF R19.7 metoclopramide HCl (Reglan) take 30 minutes before meals and at bedtime Discontinued Reason: Doctor's Order 10 mg PO Q6H PRN 90 tabs 0RF nausea and vomiting TODAY'S VISIT Patient is here today for follow-up patient reports that since the last time I have seen her she has been doing well. Patient takes Reglan in the morning before breakfast and reports that her symptoms are suppressed. Patient is tolerating food, however she change her diet. Patient is following up now with [facility] OBGYN. Patient denies any nausea or vomiting. Denies any dyspepsia, dysphagia or odynophagia. Reports that she is moving her bowels better now. In the very beginning patient was little constipated and was using Colace. Now she is moving her bowels daily. Patient denies any GI concerning symptoms today. [facility] Medical History Positive test Fatigue Nausea Pre-conception counseling Missed menses Gastritis Anxiety Encounter to establish care Surgical History History of esophagogastroduodenoscopy (EGD) [place] teeth extracted Family History Mother Asthma Maternal Grandfather Lung cancer Father No problems noted. Maternal Grandmother Hx of diabetes mellitus Social History Housing: House Alcohol intake: never Patient Tobacco Use Status: Never used Tobacco e-Cigarette/Vaping Use: Never Used service: No Current occupational status: employed Cognitive needs: No Hearing needs: No Vision needs: No Female Reproductive History Menstrual Age of Menarche: 10 Review of Systems Const Denies weight gain and Denies weight loss ENT Reports no additional complaints, Denies dysphagia and Denies odynophagia Card Reports no additional complaints Resp Reports no additional complaints GI Denies abdominal pain, Denies belching, Denies melena, Denies bloating, Denies change in bowel habits, Denies dysphagia, Denies excessive flatus, Denies dyspepsia, Denies heartburn, Denies diarrhea, Denies loose stools, Denies nausea, Denies odynophagia and Denies vomiting Reports no additional complaints Musc Reports no additional complaints Neuro Reports no additional complaints Psych Reports no additional complaints Endo Reports no additional complaints Physical Exam Vital Signs: Last Vital Signs Pulse 82 06/30/23 11:58 BP 107/59 L 06/30/23 11:58 BMI result Body Mass Index 22.0 Const General: healthy appearing, no acute distress and well developed Nutritional Appearance: well nourished Orientation/consciousness: patient oriented x3 Resp Effort & Inspection: normal respiratory effort, able to speak in complete sentences, no tracheal deviation and symmetric chest movement Auscultation: clear to auscultation bilaterally Cardio Rate: regular rate GI Auscultation: normal bowel sounds General: Yes no CVA tenderness Back/Spine/Pelvis Back: no CVA tenderness Skin General skin exam: elasticity normal, turgor normal and dry skin Neuro General: patient oriented x3 Psych Appearance: grossly normal Mental Status: mental status grossly normal Assessment & Plan Assessment & Plan (1) Constipation during : Code(s): O99.619 - Diseases of the digestive system complicating , unspecified trimester; K59.00 - Constipation, unspecified Qualifiers: Trimester: second trimester Qualified Code(s): O99.612 - Diseases of the digestive system complicating , second trimester; K59.00 - Constipation, unspecified (2) Nausea and vomiting in : Code(s): O21.9 - Vomiting of , unspecified (3) Vomiting: Code(s): R11.10 - Vomiting, unspecified Qualifiers: Vomiting type: cyclical vomiting syndrome unrelated to migraine Qualified Code(s): R11.15 - Cyclical vomiting syndrome unrelated to migraine (4) Nausea: Code(s): R11.0 - Nausea (5) GERD (gastroesophageal reflux disease): Code(s): K21.9 - Gastro-esophageal reflux disease without esophagitis Qualifiers: Esophagitis presence: esophagitis presence not specified Qualified Code(s): K21.9 - Gastro-esophageal reflux disease without esophagitis Plan Continue Reglan in the morning. Take famotidine at bedtime on as needed basis. Continue avoiding dietary triggers and late night snacking. Smaller meals and more often. I will see patient in 4 months, sooner on as needed basis patient is agreeable to this plan and verbalizes understanding of instructions. She was given the opportunity to ask questions answered. Thank you for allowing me to participate in her care Medications: New famotidine 20 mg PO BEDTIME 30 tabs 2RF Refilled metoclopramide HCl (Reglan) Take 15 minutes before meals 5 mg PO TIDWMEAL PRN 120 tabs 0RF nausea and vomiting R11.0 - Nausea metoclopramide HCl (Reglan) Take 15 minutes before meals 5 mg PO TIDWMEAL PRN 120 tabs 0RF nausea and vomiting R11.0 - Nausea Coding Level of Care Code Est Pt Level 3 (13237) Diagnoses Constipation during in second trimester O99.612; K59.00 Trimester: second trimester Nausea and vomiting in O21.9 Cyclical vomiting syndrome not associated with migraine R11.15 Vomiting type: cyclical vomiting syndrome unrelated to migraine Nausea R11.0 Gastroesophageal reflux disease, unspecified whether esophagitis present K21.9 Esophagitis presence: esophagitis presence not specified Time Spent (min) 25 Comment 15 minutes spent with patient and additional 10 minutes spent reviewing her records
== END 2023-06-30 12:22 | disposition home or self-care (01) ==
PROVIDERS: PCP Nurse Practitioner Family; Visit Provider Nurse Practitioner Family
DX: O99.612 Diseases of the digestive system complicating pregnancy, second trimester (principal); O21.9 Vomiting of pregnancy, unspecified; K21.9 Gastro-esophageal reflux disease without esophagitis
CPT/HCPCS: 99213

== ENCOUNTER → 2023-06-30 11:42 | Outpatient (BNVA) | payer OTHER, SELFPAY | PROVIDERS: PCP Nurse Practitioner Family; Visit Provider Nurse Practitioner Family | DX: O99.612 Diseases of the digestive system complicating pregnancy, second trimester (principal); K21.9 Gastro-esophageal reflux disease without esophagitis; K59.00 Constipation, unspecified; R11.15 Cyclical vomiting syndrome unrelated to migraine; R11.0 Nausea; Z3A.00 Weeks of gestation of pregnancy not specified | CPT/HCPCS: 99212 ==

== ENCOUNTER 2023-11-03 12:47 | Outpatient (AMB) | payer OTHER, SELFPAY ==
--- NOTE | 2023-11-03 12:52 | MHC.OFFVIS ---
Vital Signs 11/03/23 12:58 Height 5 ft 1 in Weight 125 lb 3.561 oz BMI 23.7 BP 97/55 L Blood Pressure Location Lt brachial Position Sitting Pulse 93 Intake Visit Reasons: 4 month follow up Intake Note: Janice presents in the office as a 4 month follow up. CC: She states that when she was she had to stop her medications - now that she had her baby she is back to having all the symptoms that she was having prior to getting . 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 Take famotidine at bedtime on as needed basis. Continue avoiding dietary triggers and late night snacking. Smaller meals and more often. I will see patient in 4 months, sooner on as needed basis patient is agreeable to this plan and verbalizes understanding of instructions. She was given the opportunity to ask questions answered. ? Thank you for allowing me to participate in her care Medications New famotidine 20 mg PO BEDTIME 30 tabs 2RF Refilled metoclopramide HCl (Reglan) Take 15 minutes before meals 5 mg PO TIDWMEAL PRN 120 tabs 0RF nausea and vomiting R11.0 metoclopramide HCl (Reglan) Take 15 minutes before meals 5 mg PO TIDWMEAL PRN 120 tabs 0RF nausea and vomiting R11.0 TODAY'S VISIT: Patient is here today for follow-up. Patient gave to healthy girl couple months ago and she starting to feel like her symptoms of nausea are coming back. Patient is unable to use any PPIs still as she is breast-feeding. Is using famotidine currently. Stopped using Reglan as it was making her too tired and she needs to be awake and functioning when she is taking care of the baby. Patient reports that she will be returning back to work soon and wants to feel better. Patient reports that her symptoms are usually in the morning. Patient reports that she is trying to stay away from certain food that trigger her symptoms. Patient states that her symptoms are not as bad as when she 1st started coming to us. She knows when to avoid certain staff. Able to keep the weight. Patient reports that she had 1 or 2 episodes when she was very nauseous and was dry heaving. For the most part patient reports that she is able to keep the food down [facility] Medical History Positive test Fatigue Nausea Pre-conception counseling Missed menses Gastritis Anxiety Encounter to establish care Surgical History History of esophagogastroduodenoscopy (EGD) [place] teeth extracted Family History Mother Asthma Maternal Grandfather Lung cancer Father No problems noted. Maternal Grandmother Hx of diabetes mellitus Social History Housing: House Alcohol intake: never Patient Tobacco Use Status: Never used Tobacco e-Cigarette/Vaping Use: Never Used service: No Current occupational status: employed Cognitive needs: No Hearing needs: No Vision needs: No Female Reproductive History Menstrual Age of Menarche: 10 Review of Systems Const Denies weight gain and Denies weight loss ENT Reports no additional complaints, Denies dysphagia and Denies odynophagia Card Reports no additional complaints Resp Reports no additional complaints GI Denies abdominal pain, Denies belching, Denies melena, Denies bloating, Denies change in bowel habits, Denies dysphagia, Denies excessive flatus, Reports dyspepsia (Occasional), Reports heartburn, Denies diarrhea, Denies loose stools, Reports nausea (Occasional), Denies odynophagia and Denies vomiting Reports no additional complaints Musc Reports no additional complaints Neuro Reports no additional complaints Psych Reports no additional complaints Endo Reports no additional complaints Physical Exam Vital Signs: Last Vital Signs Pulse 93 11/03/23 12:58 BP 97/55 L 11/03/23 12:58 BMI result Body Mass Index 23.7 Const General: healthy appearing, no acute distress and well developed Nutritional Appearance: well nourished Orientation/consciousness: patient oriented x3 Resp Effort & Inspection: normal respiratory effort, able to speak in complete sentences, no tracheal deviation and symmetric chest movement Auscultation: clear to auscultation bilaterally Cardio Rate: regular rate GI Auscultation: normal bowel sounds General: Yes no CVA tenderness Back/Spine/Pelvis Back: no CVA tenderness Skin General skin exam: elasticity normal, turgor normal and dry skin Neuro General: patient oriented x3 Psych Appearance: grossly normal Mental Status: mental status grossly normal Assessment & Plan Assessment & Plan (1) Nausea: Code(s): R11.0 - Nausea Category: Medical (2) Vomiting: Code(s): R11.10 - Vomiting, unspecified Category: Medical Qualifiers: Vomiting type: cyclical vomiting syndrome unrelated to migraine Qualified Code(s): R11.15 - Cyclical vomiting syndrome unrelated to migraine (3) GERD (gastroesophageal reflux disease): Code(s): K21.9 - Gastro-esophageal reflux disease without esophagitis Qualifiers: Esophagitis presence: esophagitis presence not specified Qualified Code(s): K21.9 - Gastro-esophageal reflux disease without esophagitis Plan Patient will continue to take famotidine. Patient may take famotidine twice a day as needed. May take Reglan on as needed basis. Patient will call our office when she will stop breast-feeding so we can put her on PPI. Continue to avoid dietary triggers, avoid late night snacking. Staying upright for minimum 3 hours after meals discussed with patient. Patient will return to our office in 8 weeks. She will call our office if her symptoms will get worse. She is agreeable to current plan of care and verbalizes understanding of instructions. She was given the opportunity to ask questions and all questions answered. Thank you for allowing me to participate in her care Medications: Refilled famotidine 20 mg PO BEDTIME 60 tabs 2RF Coding Level of Care Code Est Pt Level 3 (45313) Diagnoses Nausea R11.0 Cyclical vomiting syndrome not associated with migraine R11.15 Vomiting type: cyclical vomiting syndrome unrelated to migraine Gastroesophageal reflux disease, unspecified whether esophagitis present K21.9 Esophagitis presence: esophagitis presence not specified Time Spent (min) 30 Comment 20 minutes spent with patient and additional 10 minutes spent reviewing her records
[2023-11-03 12:58] VITALS: BP 97/55; PULSE 93; BMI 23.7
== END 2023-11-03 13:20 | disposition home or self-care (01) ==
PROVIDERS: PCP Nurse Practitioner Family; Visit Provider Nurse Practitioner Family
DX: R11.0 Nausea (principal); R11.15 Cyclical vomiting syndrome unrelated to migraine; K21.9 Gastro-esophageal reflux disease without esophagitis
CPT/HCPCS: 99213

== ENCOUNTER → 2023-11-03 12:47 | Outpatient (BNVA) | payer OTHER, SELFPAY | PROVIDERS: PCP Nurse Practitioner Family; Visit Provider Nurse Practitioner Family | DX: R11.0 Nausea (principal); R11.15 Cyclical vomiting syndrome unrelated to migraine; K21.9 Gastro-esophageal reflux disease without esophagitis | CPT/HCPCS: 99212 ==

== ENCOUNTER 2023-12-03 14:31 | Outpatient (AMB) | payer OTHER, SELFPAY ==
[2023-12-03 14:33] VITALS: BP 100/68; PULSE 93; O2SAT 99; BMI 24.2
--- NOTE | 2023-12-03 14:33 | A.OFFPC_ITS ---
Vital Signs 12/03/23 14:33 Height 5 ft 1 in Weight 128 lb BMI 24.2 BP 100/68 Blood Pressure Location Lt brachial Position Sitting Pulse 93 Pulse Source Pulse Oximeter Pulse Oximetry (%) 99 Oxygen Delivery Method Room Air Intake Visit Reasons: Establish care from [facility] Change Management Specialist Required: No Accompanied by: Self / Same As Patient Allergies egg Allergy (Severe, Verified 12/04/23 07:18) Anaphylaxis sesame seed Allergy (Mild, Verified 12/04/23 07:18) Unknown No Known Drug Allergies Allergy (Unknown, Verified 12/04/23 07:18) none ibuprofen Adverse Reaction (Mild, Verified 12/04/23 07:18) Nausea Medication List - Last Reconciled 12/04/23 by Oniel Kearney MD epinephrine (EpiPen 2-Paco) 0.3 mg (0.3 mL) IM Q4H PRN famotidine 20 mg PO BEDTIME Tobacco use date assessed: 12/03/23 Dental Screening Dental Screen Date: 12/03/23 Did you have a dental visit in the last 12 months?: No Did you have a dental problem in the last 6 months where you did not have access to dental care?: No Was dental information given to patient?: Patient has dentist HPI Establish care from [facility] HPI Details 23-year-old female presents to the offic e to discuss her medical condition. I will be assuming her care as her primary provider has left the practice. Patient gave to in the past few months. It was her 1st baby, vaginal . She had no complications before or after the delivery. Patient continues to nurse the baby. She lives with her . 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 She has difficulty falling and staying asleep. She has tried sertraline and hydroxyzine and could not tolerate either medication the baby sleeping well at night but patient is unable to fall asleep. Otherwise, she feels fine. No fatigue symptoms. Able to take care of the baby. No crying spells. [facility] Medical History Positive test Fatigue Nausea Pre-conception counseling Missed menses Gastritis Anxiety Encounter to establish care Surgical History History of esophagogastroduodenoscopy (EGD) [place] teeth extracted Family History Mother Asthma Maternal Grandfather Lung cancer Father No problems noted. Maternal Grandmother Hx of diabetes mellitus Social History Housing: House Alcohol intake: never Patient Tobacco Use Status: Never used Tobacco e-Cigarette/Vaping Use: Never Used service: No Current occupational status: employed Cognitive needs: No Hearing needs: No Vision needs: No Female Reproductive History Menstrual Age of Menarche: 10 Questionnaire PHQ-9 Over the last 2 weeks, how often have you been bothered by any of the following problems? 1. Little interest or pleasure in doing things: several days 2. Feeling down, depressed, or hopeless: several days 3. Trouble falling or staying asleep, or sleeping too much: nearly every day 4. Feeling tired or having little energy: nearly every day 5. Poor appetite or overeating: not at all 6. Feeling bad about yourself - or that you are a failure or have let yourself or your family down: several days 7. Trouble concentrating on things, such as reading the newspaper or watching television: not at all 8. Moving or speaking so slowly that other people could have noticed. Or the opposite - being so fidgety or restless that you have been moving around a lot more than usual: not at all 9. Thoughts that you would be better off or of hurting yourself in some way: not at all Total score: 9 Depression Screening Interpretation: Positive Depression Screening Follow-up: Existing condition Depression Screening Done: Yes Source: Developed by Drs. León Caruso, Cindy Mack, Idris Call and colleagues, with an educational jeannette from [employer]. Thrive Questionnaire Date Thrive assessed: 12/03/23 I am a: Patient What is your living situation today?: I have a steady place to live Within the past 12 months, did the food you bought not last and you didn't have the money to get more?: Never true Within the past 12 months, did you worry whether your food would run out before you got money to buy more?: Never true Do you have trouble paying for medicines?: No Do you have trouble getting transportation to medical appointments?: No Do you have trouble paying your heating and electricity bill?: No Do you have trouble taking care of your child, family member or friend?: No Do you have trouble with day-to-day activities such as bathing, preparing meals, shopping, managing finances, etc.?: No Are you currently unemployed and looking for a job?: No Are you interested in more education?: No Please select the resources that you would like help with: Housing/Residential Currently or been in a relationship where the following occur: No concerns reported THRIVE Score: 0 AUDIT C Alcohol Use Questionnaire (AUDIT-C) 1. How often do you have a drink containing alcohol?: Never 2. How many drinks containing alcohol do you have on a typical day when you are drinking?: 1 or 2 3. How often do you have six or more drinks on one occasion?: Never Total Score: 0 Score Reviewed/Action Taken: No MARK-7 AMB Questionnaire MARK-7 Date MARK - 7 assessed: 12/03/23 Feeling nervous, anxious, or on edge: 1 = Several days Not being able to stop or control worryin = Several days Worrying too much about different things: 1 = Several days Trouble relaxin = Several days Being so restless that it is hard to sit still: 0 = Not at all Becoming easily annoyed or irritable: 1 = Several days Feeling afraid as if something awful might happen: 1 = Several days Total MARK-7 score (0-4 normal; 5-9 mild; 10-14 moderate; 15-21 severe): 6 Source: Developed by Drs. León Caruso, Cindy Mack, Idris Call and colleagues, with an educational jeannette from [employer]. MARK-7 Assessment Billing MARK-7 Assessment Tool: MARK-7 Assessment 10795 Physical exam (Primary Care) Vital Signs: Last Vital Signs Pulse 93 12/03/23 14:33 BP 100/68 12/03/23 14:33 Pulse Ox 99 12/03/23 14:33 Oxygen Delivery Method Room Air 12/03/23 14:33 Care Plan Goal for BP management: Blood pressure is in range. BMI result Body Mass Index 24.2 Tobacco/Smoking Status: Tobacco use Status Tobacco use date assessed 12/03/23 12/03/23 14:36 Patient Tobacco Use Status Never used Tobacco 12/03/23 14:36 e-Cigarette/Vaping Use Never Used 12/03/23 14:36 PHQ-9: PHQ-9 Score PHQ-9: Total score 9 12/03/23 14:36 Depression Screening Interpretation: Positive Depression Screening Follow-up: Existing condition Thrive Assessment: Date of Thrive Assessment Date Thrive assessed 12/03/23 12/03/23 14:36 Currently or been in a relationship where the following occur: No concerns rep orted Const General: cooperative and healthy appearing Nutritional Appearance: well nourished Orientation/consciousness: patient oriented x3 Limitations: no limitations HENMT Head: Yes normal to inspection Eyes General: appearance normal, both eyes and all related structures Neck Neck: Yes normal visual inspection Chest Chest palpation & inspection: normal palpation of entire chest wall Resp Effort & Inspection: normal respiratory effort Neuro General: patient oriented x3 Assessment and Plan Assessment & Plan (1) Anxiety: Code(s): F41.9 - Anxiety disorder, unspecified Plan: Patient may have mild anxiety and depression. This is causing the insomnia. Melatonin has been suggested. Discussion on sleep hygiene. Blood work has been ordered and will call patient with the results. Orders: Orders Basic Metabolic Panel 12/03/23 F41.9 - Anxiety disorder, unspecified Complete Blood Count no Diff 12/03/23 F41.9 - Anxiety disorder, unspecified Liver Panel 12/03/23 F41.9 - Anxiety disorder, unspecified Thyroid Stimulating Hormone 12/03/23 F41.9 - Anxiety disorder, unspecified Coding Level of Care Code Est Pt Level 4 (00150) Complex EM visit Add On G2211 Diagnoses Anxiety F41.9 Additional Codes MARK-7 Assessment Billing - MARK-7 Assessment Tool: MARK-7 Assessment [id number] ([id number])
== END 2023-12-03 15:36 | disposition home or self-care (01) ==
PROVIDERS: PCP Nurse Practitioner Family; Visit Provider Internal Medicine
DX: F41.9 Anxiety disorder, unspecified (principal)
CPT/HCPCS: 99214; G2211

== ENCOUNTER 2024-03-03 11:36 | Outpatient (REF) | payer OTHER, SELFPAY ==
[2024-03-03 12:37] LABS: Hemoglobin 13.3 g/dl (12.0-16.0); Mean Corpuscular HGB Conc 34.1 g/dl (31.0-35.0); Mean Corpuscular Hemoglobin 29.4 pg (27.0-33.0); Mean Corpuscular Volume 86.1 fL (80.0-98.0); Platelet Count 264 X10*3/uL (160-400); Red Blood Count 4.53 X10*6/uL (4.20-5.50); Red Cell Distribution Width 11.9 % (11.0-16.0); White Blood Count 5.7 X10*3/uL (4.8-10.8)
[2024-03-03 13:16] LABS: Alanine Aminotransferase 16 U/L (0-31); Albumin Level 4.2 g/dL (3.5-5.0); Alkaline Phosphatase 81 U/L (39-117); Anion Gap 10 (12-20); Aspartate Amino Transferase 20 U/L (5-31); Bilirubin Direct 0.1 mg/dL (0.0-0.5); Bilirubin Total 0.5 mg/dL (0.0-1.0); Blood Urea Nitrogen 11 mg/dL (9-16); Calcium 9.5 mg/dL (8.4-10.2); Carbon Dioxide 27 mmol/L (22-29); Chloride 107 mmol/L (96-108); Estimated Glomerular Filt Rate > 60; Glucose Random 90 mg/dL (60-115); Potassium 3.9 mmol/L (3.3-5.1); Sodium 140 mmol/L (135-145); Total Protein 6.6 g/dL (6.5-8.0)
[2024-03-03 13:32] LABS: Thyroid Stimulating Hormone 1.63 uIU/mL (0.32-4.0)
== END 2024-03-03 11:37 | disposition home or self-care (01) ==
LOC: HO.LAB 11:36
PROVIDERS: PCP Internal Medicine; Visit Provider Internal Medicine
DX: F41.9 Anxiety disorder, unspecified (principal)
CPT/HCPCS: 36415; 80048; 80076; 84443; 85027

== ENCOUNTER 2024-04-04 15:50 | Outpatient (REF) | payer OTHER, SELFPAY ==
[2024-04-04 17:42] LABS: HCG Quantitative < 2 mIU/mL
== END 2024-04-04 15:51 | disposition home or self-care (01) ==
LOC: HO.LAB 15:50
PROVIDERS: PCP Internal Medicine; Visit Provider Nurse Practitioner Family
DX: R11.0 Nausea (principal); R53.83 Other fatigue; K21.9 Gastro-esophageal reflux disease without esophagitis
CPT/HCPCS: 36415; 84702; 99212

== ENCOUNTER 2024-04-04 15:50 | Outpatient (AMB) | payer OTHER, SELFPAY ==
--- NOTE | 2024-04-04 15:56 | A.OFFVIS_ITS ---
Vital Signs 04/04/24 15:57 Height 5 ft 1 in Weight 125 lb 10.616 oz BMI 23.7 BP 120/76 Blood Pressure Location Rt brachial Position Sitting Pulse 86 Pulse Source Pulse Oximeter Pulse Oximetry (%) 99 Oxygen Delivery Method Room Air Intake Visit Reasons: 2 mos FUV Intake Note: ESTABLISHED PATIENT Janice presents in office today for a scheduled ~5-6 mos FUV. Meds and Allergies reviewed? Y No recent or relevant surgeries? N Any significant concerns or new changes? Abnormal, frequent nausea. Dizziness. Pt reports similar to previous morning sickness. HCG (-). PCP ordered labs which were normal per pt. Pharmacy verified? [facility] [place] Allergies egg Allergy (Severe, Verified 04/04/24 15:56) Anaphylaxis sesame seed Allergy (Mild, Verified 04/04/24 15:56) Unknown No Known Drug Allergies Allergy (Unknown, Verified 04/04/24 15:56) none ibuprofen Adverse Reaction (Mild, Verified 04/04/24 15:56) Nausea HPI HPI 2 mos FUV: Details: LAST VISIT: Nausea Vomiting GERD (gastroesophageal reflux disease) Plan Patient will continue to take famotidine. Patient may take famotidine twice a day as needed. May take Reglan on as needed basis. Patient will call our office when she will stop breast-feeding so we can put her on PPI. Continue to avoid dietary triggers, avoid late night snacking. Staying upright for minimum 3 hours after meals discussed with patient. Patient will return to our office in 8 weeks. She will call our office if her symptoms will get worse. She is agreeable to current plan of care and verbalizes understanding of instructions. She was given the opportunity to ask questions and all questions answered. ? Thank you for allowing me to participate in her care Medications Refilled famotidine 20 mg PO BEDTIME 60 tabs 2RF TODAY'S VISIT Patient is here today for follow-up. Patient reports that she has been feeling well. Good appetite, however she reports that more frequently now she will have nausea in the morning just like she had when she was . Patient did urine test was negative. Currently she is on famotidine, however patient was breast-feeding and we were avoiding PPI. Patient states that she will be weaning off. Maybe couple more weeks and she will stop breast-feeding. Patient denies eating late at night. Patient denies dyspepsia, dysphagia or odynophagia. Denies any other GI concerning symptoms. Denies any weight loss. [facility] Medical History Positive test Fatigue Nausea Pre-conception counseling Missed menses Gastritis Anxiety Encounter to establish care Surgical History History of esophagogastroduodenoscopy (EGD) [place] teeth extracted Family History Mother Asthma Maternal Grandfather Lung cancer Father No problems noted. Maternal Grandmother Hx of diabetes mellitus Social History Housing: House Alcohol intake: never Patient Tobacco Use Status: Never used Tobacco e-Cigarette/Vaping Use: Never Used service: No Current occupational status: employed Cognitive needs: No Hearing needs: No Vision needs: No Female Reproductive History Menstrual Age of Menarche: 10 Review of Systems Const Denies weight gain and Denies weight loss ENT Reports no additional complaints, Denies dysphagia and Denies odynophagia Card Reports no additional complaints Resp Reports no additional complaints GI Denies abdominal pain, Denies belching, Denies melena, Denies bloating, Denies change in bowel habits, Denies dysphagia, Denies excessive flatus, Denies dyspepsia, Denies heartburn, Denies diarrhea, Denies loose stools, Reports nausea (Morning), Denies odynophagia and Denies vomiting Musc Reports no additional complaints Neuro Reports no additional complaints Psych Reports no additional complaints Endo Reports no additional complaints Physical Exam Vital Signs: Last Vital Signs Pulse 86 04/04/24 15:57 BP 120/76 04/04/24 15:57 Pulse Ox 99 04/04/24 15:57 Oxygen Delivery Method Room Air 04/04/24 15:57 BMI result Body Mass Index 23.7 Const General: healthy appearing, no acute distress and well developed Nutritional Appearance: well nourished Orientation/consciousness: patient oriented x3 Resp Effort & Inspection: normal respiratory effort, able to speak in complete sentences, no tracheal deviation and symmetric chest movement Auscultation: clear to auscultation bilaterally Cardio Rate: regular rate GI Auscultation: normal bowel sounds General: Yes no CVA tenderness Back/Spine/Pelvis Back: no CVA tenderness Skin General skin exam: elasticity normal, turgor normal and dry skin Neuro General: patient oriented x3 Psych Appearance: grossly normal Mental Status: mental status grossly normal Assessment & Plan Assessment & Plan (1) Nausea: Code(s): R11.0 - Nausea Category: Medical (2) Fatigue: Code(s): R53.83 - Other fatigue Category: Medical Qualifiers: Fatigue type: unspecified Qualified Code(s): R53.83 - Other fatigue (3) GERD (gastroesophageal reflux disease): Code(s): K21.9 - Gastro-esophageal reflux disease without esophagitis Qualifiers: Esophagitis presence: without esophagitis Qualified Code(s): K21.9 - Gastro-esophageal reflux disease without esophagitis Plan Will order hCG quant to verify that patient in fact is not . She can start taking Nexium in the morning. That helped her in the past. Patient does have Reglan at home if she needs she can take that. Discussed with patient avoiding dietary triggers and late night snacking. Staying upright for minimum 3 hours after meals discussed with patient. Patient will return in 2 months, sooner on as needed basis. She is agreeable to this plan and verbalizes understanding of instructions. She was given the opportunity to ask questions and all questions answered. Thank you for allowing me to participate in her care Orders: Orders HCG Quantitative 04/04/24 R11.0 - Nausea, R53.83 - Other fatigue Medications: New esomeprazole magnesium (Nexium) 40 mg PO DAILY 30 caps 2RF K21.9 - Gastro- esophageal reflux disease without esophagitis Coding Level of Care Code Est Pt Level 3 (57639) Diagnoses Nausea R11.0 Fatigue, unspecified type R53.83 Fatigue type: unspecified Gastroesophageal reflux disease without esophagitis K21.9 Esophagitis presence: without esophagitis Time Spent (min) 25 Comment 15 minutes spent with patient and additional 10 minutes spent reviewing her records
[2024-04-04 15:57] VITALS: BP 120/76; PULSE 86; O2SAT 99; BMI 23.7
== END 2024-04-04 16:22 | disposition home or self-care (01) ==
PROVIDERS: PCP Internal Medicine; Visit Provider Nurse Practitioner Family
DX: R11.0 Nausea (principal); R53.83 Other fatigue; K21.9 Gastro-esophageal reflux disease without esophagitis
CPT/HCPCS: 99213

== ENCOUNTER 2024-05-11 09:58 | Outpatient (AMB) | payer OTHER, SELFPAY ==
[2024-05-11 10:11] VITALS: BP 120/62; PULSE 86; O2SAT 99; BMI 23.2
--- NOTE | 2024-05-11 10:11 | A.OFFVIS_ITS ---
Vital Signs 05/11/24 10:11 Height 5 ft 1 in Weight 123 lb 0.287 oz BMI 23.2 BP 120/62 Blood Pressure Location Rt brachial Position Sitting Pulse 86 Pulse Source Pulse Oximeter Pulse Oximetry (%) 99 Oxygen Delivery Method Room Air Intake Visit Reasons: Nausea Intake Note: ESTABLISHED PATIENT for Constipation, GERD, and fatigue mgmt. Chief Complaint; N+V, worsening reflux, generalized abd pain. Pt has not been taking esomeprazole per still breast feeding (as discussed per last visit). Taking famotidine daily but has not noticed much if any improvement. Pt also reports taking Reglan very infrequently per possible adverse reaction; results in increased anxiety per pt. Medical I D Sales Required: No Accompanied by: Self / Same As Patient Allergies egg Allergy (Severe, Verified 05/11/24 10:11) Anaphylaxis sesame seed Allergy (Mild, Verified 05/11/24 10:11) Unknown No Known Drug Allergies Allergy (Unknown, Verified 05/11/24 10:11) none ibuprofen Adverse Reaction (Mild, Verified 05/11/24 10:11) Nausea HPI HPI Nausea: Details: LAST VISIT Nausea Fatigue GERD (gastroesophageal reflux disease) Plan Will order hCG quant to verify that patient in fact is not . She can start taking Nexium in the morning. That helped her in the past. Patient does have Reglan at home if she needs she can take that. Discussed with patient justin santiago dietary triggers and late night snacking. Staying upright for minimum 3 hours after meals discussed with patient. Patient will return in 2 months, sooner on as needed basis. She is agreeable to this plan and verbalizes understanding of instructions. She was given the opportunity to ask questions and all questions answered. ? Thank you for allowing me to participate in her care Orders Orders HCG Quantitative 04/04/24 R11.0, R53.83 Medications New esomeprazole magnesium (Nexium) 40 mg PO DAILY 30 caps 2RF K21.9 TODAY'S VISIT Patient is here today for requested visit. Patient reports that she continues to have nausea and occasional vomiting. Patient tried Reglan but now feels like it makes her more anxious and shaky so she has been trying to avoid taking it. Patient continues to breastfeed. Currently patient is taking famotidine at night time. Occasionally patient will take famotidine in the morning as well. Feels like it might not be as helpful as Nexium. Patient is hoping to transition her baby to solid food in the next few weeks. Patient used to go to see a therapist which has help, however due to conflicting schedule she is unable to follow-up with the appointments. Patient is looking to see a sychiatrist to help her with her severe anxiety. [facility] Medical History Positive test Fatigue Nausea Pre-conception counseling Missed menses Gastritis Anxiety Encounter to establish care Surgical History History of esophagogastroduodenoscopy (EGD) [place] teeth extracted Family History Mother Asthma Maternal Grandfather Lung cancer Father No problems noted. Maternal Grandmother Hx of diabetes mellitus Social History Housing: House Alcohol intake: never Patient Tobacco Use Status: Never used Tobacco e-Cigarette/Vaping Use: Never Used service: No Current occupational status: employed Cognitive needs: No Hearing needs: No Vision needs: No Female Reproductive History Menstrual Age of Menarche: 10 Review of Systems Const Denies weight gain and Denies weight loss ENT Reports no additional complaints, Denies dysphagia and Denies odynophagia Card Reports no additional complaints Resp Reports no additional complaints GI Denies abdominal pain, Denies belching, Denies melena, Reports bloating, Denies change in bowel habits, Denies dysphagia, Denies excessive flatus, Reports dyspepsia, Reports heartburn, Denies diarrhea, Denies loose stools, Denies nausea, Denies odynophagia and Denies vomiting Musc Reports no additional complaints Neuro Reports no additional complaints Psych Reports no additional complaints Endo Reports no additional complaints Physical Exam Vital Signs: Last Vital Signs Pulse 86 05/11/24 10:11 BP 120/62 05/11/24 10:11 Pulse Ox 99 05/11/24 10:11 Oxygen Delivery Method Room Air 05/11/24 10:11 BMI result Body Mass Index 23.2 Const General: healthy appearing, no acute distress and well developed Nutritional Appearance: well nourished Orientation/consciousness: patient oriented x3 Resp Effort & Inspection: normal respiratory effort, able to speak in complete sentences, no tracheal deviation and symmetric chest movement Auscultation: clear to auscultation bilaterally Cardio Rate: regular rate GI Auscultation: normal bowel sounds General: Yes no CVA tenderness Back/Spine/Pelvis Back: no CVA tenderness Skin General skin exam: elasticity normal, turgor normal and dry skin Neuro General: patient oriented x3 Psych Appearance: grossly normal Mental Status: mental status grossly normal Assessment & Plan Assessment & Plan (1) Nausea: Code(s): R11.0 - Nausea Category: Medical (2) Fatigue: Code(s): R53.83 - Other fatigue Category: Medical Qualifiers: Fatigue type: unspecified Qualified Code(s): R53.83 - Other fatigue (3) Vomiting: Code(s): R11.10 - Vomiting, unspecified Category: Medical Qualifiers: Vomiting type: cyclical vomiting syndrome unrelated to migraine Qualified Code(s): R11.15 - Cyclical vomiting syndrome unrelated to migraine (4) GERD (gastroesophageal reflux disease): Code(s): K21.9 - Gastro-esophageal reflux disease without esophagitis Qualifiers: Esophagitis presence: esophagitis presence not specified Qualified Code(s): K21.9 - Gastro-esophageal reflux disease without esophagitis (5) Anxiety disorder: Code(s): F41.9 - Anxiety disorder, unspecified Qualifiers: Anxiety disorder type: generalized anxiety disorder Qualified Code(s): F41.1 - Generalized anxiety disorder (6) Postprandial abdominal bloating: Code(s): R14.0 - Abdominal distension (gaseous) Plan Patient will continue avoiding dietary triggers. Continue avoiding late night snacking. Take Pepcid 1st thing when she wakes up in the morning. Reports occasional postprandial abdominal bloating will try again low FODMAP diet. List of food recommended as well as list of food to avoid given to patient. Patient will try Benefiber with pre and probiotics. Patient was encouraged to increase fluid intake. Follow-up in 3 office, sooner on as needed basis. Patient is agreeable to this plan and verbalizes understanding of instructions. She was given the opportunity to ask questions and all questions answered. Thank you for allowing me to participate in her care Medications: New ondansetron 4 mg PO Q8H PRN 20 tabs 0RF nausea and vomiting R11.0 - Nausea Coding Level of Care Code Est Pt Level 4 (14812) Complex EM visit Add On G2211 Diagnoses Nausea R11.0 Fatigue, unspecified type R53.83 Fatigue type: unspecified Cyclical vomiting syndrome not associated with migraine R11.15 Vomiting type: cyclical vomiting syndrome unrelated to migraine Gastroesophageal reflux disease, unspecified whether esophagitis present K21.9 Esophagitis presence: esophagitis presence not specified Generalized anxiety disorder F41.1 Anxiety disorder type: generalized anxiety disorder Postprandial abdominal bloating R14.0 Time Spent (min) 35 Comment 25 minutes spent with patient and additional 10 minutes spent reviewing her records
== END 2024-05-11 10:48 | disposition home or self-care (01) ==
PROVIDERS: PCP Internal Medicine; Visit Provider Nurse Practitioner Family
DX: R11.0 Nausea (principal); R53.83 Other fatigue; R11.15 Cyclical vomiting syndrome unrelated to migraine; K21.9 Gastro-esophageal reflux disease without esophagitis; F41.1 Generalized anxiety disorder; R14.0 Abdominal distension (gaseous)
CPT/HCPCS: 99214; G2211

== ENCOUNTER → 2024-05-11 09:58 | Outpatient (BNVA) | payer OTHER, SELFPAY | PROVIDERS: PCP Internal Medicine; Visit Provider Nurse Practitioner Family | DX: R11.15 Cyclical vomiting syndrome unrelated to migraine (principal); K59.00 Constipation, unspecified; K21.9 Gastro-esophageal reflux disease without esophagitis; R53.83 Other fatigue; F41.1 Generalized anxiety disorder; R14.0 Abdominal distension (gaseous) | CPT/HCPCS: 99212 ==

== ENCOUNTER 2024-06-17 10:18 | Outpatient (AMB) | payer OTHER, SELFPAY ==
[2024-06-17 10:19] VITALS: BP 112/70; PULSE 66; RESP 16; TEMP 36.4; O2SAT 99; BMI 22.3
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
== END 2024-06-17 11:03 | disposition home or self-care (01) ==
PROVIDERS: PCP Internal Medicine; Visit Provider Physician Assistant Medical
DX: F41.9 Anxiety disorder, unspecified (principal); F42.9 Obsessive-compulsive disorder, unspecified; F32.A Depression, unspecified; F43.10 Post-traumatic stress disorder, unspecified

== ENCOUNTER → 2024-06-17 10:18 | Outpatient (BNVA) | payer OTHER, SELFPAY | PROVIDERS: PCP Internal Medicine; Visit Provider Physician Assistant Medical | DX: F41.9 Anxiety disorder, unspecified (principal); F42.9 Obsessive-compulsive disorder, unspecified; F43.10 Post-traumatic stress disorder, unspecified; F32.A Depression, unspecified | CPT/HCPCS: 96127; 99212 ==

== ENCOUNTER 2024-08-19 14:05 | Outpatient (AMB) | payer OTHER, SELFPAY ==
--- NOTE | 2024-08-19 14:07 | A.OFFVIS_ITS ---
Vital Signs 08/19/24 14:08 Height 5 ft 1 in Weight 109 lb BMI 20.6 BP 116/74 Blood Pressure Location Rt brachial Position Sitting Pulse 70 Pulse Source Pulse Oximeter Pulse Oximetry (%) 100 Oxygen Delivery Method Room Air Intake Visit Reasons: 3 f/u r/s 08/10/24 Intake Note: ESTABLISHED PATIENT for mgmt of GERD, nausea, and chronic abd pain/bloating. CC; CO persistent N+V and exacerbation of sx overnight. Pt comments that the pantoprazole has been effective in tx of her GERD and she has had a more positive response to this med than other PPIs previously. Pt is not experiencing adverse / side effects of the medications. Pt still continuing to lose weight unintentionally due to lack of appetite and GI upset. Injection Wax Molder Required: No Accompanied by: Self / Same As Patient Allergies egg Allergy (Severe, Verified 08/19/24 14:12) Anaphylaxis sesame seed Allergy (Mild, Verified 08/19/24 14:12) Unknown No Known Drug Allergies Allergy (Unknown, Verified 08/19/24 14:12) none ibuprofen Adverse Reaction (Mild, Verified 08/19/24 14:12) Nausea HPI HPI 3 f/u r/s 08/10/24: Details: LAST VISIT: Nausea Fatigue Vomiting GERD (gastroesophageal reflux disease) Anxiety disorder Postprandial abdominal bloating Plan Patient will continue avoiding dietary triggers. Continue avoiding late night snacking. Take Pepcid 1st thing when she wakes up in the morning. Reports occasional postprandial abdominal bloating will try again low FODMAP diet. List of food recommended as well as list of food to avoid given to patient. Patient will try Benefiber with pre and probiotics. Patient was encouraged to increase fluid intake. Follow-up in 3 office, sooner on as needed basis. Patient is agreeable to this plan and verbalizes understanding of instructions. She was given the opportunity to ask questions and all questions answered. ? Thank you for allowing me to participate in her care Medications New ondansetron 4 mg PO Q8H PRN 20 tabs 0RF nausea and vomiting R11.0 TODAY'S VISIT: Patient is here today for follow-up. Patient reports that pantoprazole is w orking for her the best out of all PPI she has tried in the past. Patient states however she only has been taking it for 3 weeks. Patient reports that she continues to wake up and feeling nauseous. Sometimes has nausea and abdominal discomfort 2-3 hours after eating. Patient denies dyspepsia, dysphagia or odynophagia. Patient reports that she no longer eats meat. Patient is trying to be strictly vegan just like her . Patient reports that when she had [employer] sandwhich from [employer] 2 hours later she had nausea and felt like she had a flu. Similar symptoms 2 hours after eating celery with peanut butter. [facility] Medical History PTSD (post-traumatic stress disorder) Depression Positive test Fatigue Nausea Pre-conception counseling Missed menses Gastritis Anxiety Encounter to establish care Surgical History History of esophagogastroduodenoscopy (EGD) [place] teeth extracted Family History Mother Asthma Maternal Grandfather Lung cancer Father No problems noted. Maternal Grandmother Hx of diabetes mellitus Social History Housing: House Alcohol intake: never Patient Tobacco Use Status: Never used Tobacco e-Cigarette/Vaping Use: Never Used service: No Current occupational status: employed Cognitive needs: No Hearing needs: No Vision needs: No Female Reproductive History Menstrual Age of Menarche: 10 Review of Systems Const Denies weight gain and Reports weight loss ENT Reports no additional complaints, Denies dysphagia and Denies odynophagia Card Reports no additional complaints Resp Reports no additional complaints GI Reports abdominal pain (Epigastric), Denies belching, Denies melena, Reports bloating, Denies change in bowel habits, Denies dysphagia, Denies excessive flatus, Reports dyspepsia, Reports heartburn, Denies diarrhea, Denies loose stools, Denies nausea, Denies odynophagia and Denies vomiting Reports no additional complaints Musc Reports no additional complaints Neuro Reports no additional complaints Psych Reports no additional complaints Endo Reports no additional complaints Physical Exam Vital Signs: Last Vital Signs Pulse 70 08/19/24 14:08 BP 116/74 08/19/24 14:08 Pulse Ox 100 08/19/24 14:08 Oxygen Delivery Method Room Air 08/19/24 14:08 BMI result Body Mass Index 20.6 Const General: healthy appearing, no acute distress and well developed Nutritional Appearance: well nourished Orientation/consciousness: patient oriented x3 Resp Effort & Inspection: normal respiratory effort, able to speak in complete sentences, no tracheal deviation and symmetric chest movement Auscultation: clear to auscultation bilaterally Cardio Rate: regular rate GI Auscultation: normal bowel sounds General: Yes no CVA tenderness Back/Spine/Pelvis Back: no CVA tenderness Skin General skin exam: elasticity normal, turgor normal and dry skin Neuro General: patient oriented x3 Psych Appearance: grossly normal Mental Status: mental status grossly normal Assessment & Plan Assessment & Plan (1) Nausea: Code(s): R11.0 - Nausea Category: Medical (2) Fatigue: Code(s): R53.83 - Other fatigue Category: Medical Qualifiers: Fatigue type: unspecified Qualified Code(s): R53.83 - Other fatigue (3) Vomiting: Code(s): R11.10 - Vomiting, unspecified Category: Medical Qualifiers: Vomiting type: cyclical vomiting syndrome unrelated to migraine Qualified Code(s): R11.15 - Cyclical vomiting syndrome unrelated to migraine (4) GERD (gastroesophageal reflux disease): Code(s): K21.9 - Gastro-esophageal reflux disease without esophagitis Qualifiers: Esophagitis presence: esophagitis presence not specified Qualified Code(s): K21.9 - Gastro-esophageal reflux disease without esophagitis (5) Anxiety disorder: Code(s): F41.9 - Anxiety disorder, unspecified Qualifiers: Anxiety disorder type: generalized anxiety disorder Qualified Code(s): F41.1 - Generalized anxiety disorder (6) Postprandial abdominal bloating: Code(s): R14.0 - Abdominal distension (gaseous) Plan Patient will continue taking pantoprazole in the morning. Patient states that famotidine does not help. She did well with sucralfate in the past. Will start her on sucralfate at bedtime. Discussed with patient trying to low FODMAP diet like she did before and she did well with that. Patient feels symptoms 2 hours with bloating. Stay away from gluten and try some hours ago bread. Say she tries to avoid she says she she recognizes as well as she will avoid. Patient will follow-up in the office in 2-3 months, sooner on as needed basis. She is agreeable to this plan and verbalizes understanding of instructions. She was given the opportunity to ask questions and all questions answered. Thank you for allowing to participate in her care Medications: New sucralfate 1 g PO BEDTIME 30 tabs 4RF R19.7 - Diarrhea, unspecified Discontinued famotidine Discontinued Reason: Doctor's Order 20 mg PO BEDTIME 90 tabs 1RF Coding Level of Care Code Est Pt Level 4 (16358) Complex EM visit Add On G2211 Diagnoses Nausea R11.0 Fatigue, unspecified type R53.83 Fatigue type: unspecified Cyclical vomiting syndrome not associated with migraine R11.15 Vomiting type: cyclical vomiting syndrome unrelated to migraine Gastroesophageal reflux disease, unspecified whether esophagitis present K21.9 Esophagitis presence: esophagitis presence not specified Generalized anxiety disorder F41.1 Anxiety disorder type: generalized anxiety disorder Postprandial abdominal bloating R14.0 Time Spent (min) 35 Comment 25 minutes spent with patient and additional 15 minutes spent reviewing her records
[2024-08-19 14:08] VITALS: BP 116/74; PULSE 70; O2SAT 100; BMI 20.6
== END 2024-08-19 14:38 | disposition home or self-care (01) ==
LOC: HO.HGI 14:06
PROVIDERS: PCP Internal Medicine; Visit Provider Nurse Practitioner Family
DX: R11.0 Nausea (principal); R53.83 Other fatigue; R11.15 Cyclical vomiting syndrome unrelated to migraine; K21.9 Gastro-esophageal reflux disease without esophagitis; F41.1 Generalized anxiety disorder; R14.0 Abdominal distension (gaseous)
CPT/HCPCS: 99214; G2211

== ENCOUNTER → 2024-08-19 14:05 | Outpatient (BNVA) | payer OTHER, SELFPAY | PROVIDERS: PCP Internal Medicine; Visit Provider Nurse Practitioner Family | DX: K21.9 Gastro-esophageal reflux disease without esophagitis (principal); R10.9 Unspecified abdominal pain; G89.29 Other chronic pain; R11.0 Nausea; R53.83 Other fatigue; R11.15 Cyclical vomiting syndrome unrelated to migraine; F41.1 Generalized anxiety disorder; R14.0 Abdominal distension (gaseous); R19.7 Diarrhea, unspecified | CPT/HCPCS: 99212 ==

== ENCOUNTER 2024-09-15 09:27 | Outpatient (AMB) | payer OTHER, SELFPAY ==
--- NOTE | 2024-09-15 09:35 | MHC.PC.OV ---
Vital Signs 09/15/24 09:37 Height 5 ft 1 in Weight 104 lb 8 oz BMI 19.7 BP 110/60 Blood Pressure Location Lt brachial Position Sitting Pulse 84 Pulse Source Pulse Oximeter Temp 97.3 F Temp Source Temporal Artery Scan Pulse Oximetry (%) 99 Oxygen Delivery Method Room Air Intake Visit Reasons: anxiety f/u - see comments Intake Note: Patient is here to follow up on Anxiety. Epidemiology Investigator Required: No Environmental Services Tech: Not Required per policy Accompanied by: Self / Same As Patient Allergies egg Allergy (Severe, Verified 09/15/24 09:41) Anaphylaxis sesame seed Allergy (Mild, Verified 09/15/24 09:41) Unknown ibuprofen Adverse Reaction (Mild, Verified 09/15/24 09:41) Nausea Tobacco use date assessed: 09/15/24 Dental Screening Dental Screen Date: 09/15/24 Did you have a dental visit in the last 12 months?: No Did you have a dental problem in the last 6 months where you did not have access to dental care?: No Was dental information given to patient?: Patient declined [facility] Medical History PTSD (post-traumatic stress disorder) Depression Positive test Fatigue Nausea Pre-conception counseling Missed menses Gastritis Anxiety Encounter to establish care Surgical History History of esophagogastroduodenoscopy (EGD) [place] teeth extracted Family History Mother Asthma Maternal Grandfather Lung cancer Father No problems noted. Maternal Grandmother Hx of diabetes mellitus Social History Housing: House Alcohol intake: never Patient Tobacco Use Status: Never used Tobacco e-Cigarette/Vaping Use: Never Used Second Hand Smoke Exposure: No service: No Current occupational status: employed Cognitive needs: No Hearing needs: No Vision needs: Yes (Glasses) Female Reproductive History Menstrual Age of Menarche: 10 Questionnaire PHQ-9 Over the last 2 weeks, how often have you been bothered by any of the following problems? 1. Little interest or pleasure in doing things: more than half the days 2. Feeling down, depressed, or hopeless: more than half the days 3. Trouble falling or staying asleep, or sleeping too much: nearly every day 4. Feeling tired or having little energy: several days 5. Poor appetite or overeating: nearly every day 6. Feeling bad about yourself - or that you are a failure or have let yourself or your family down: more than half the days 7. Trouble concentrating on things, such as reading the newspaper or watching television: not at all 8. Moving or speaking so slowly that other people could have noticed. Or the opposite - being so fidgety or restless that you have been moving around a lot more than usual: not at all 9. Thoughts that you would be better off or of hurting yourself in some way: not at all Total score: 13 Depression Screening Interpretation: Positive Depression Screening Done: Yes Source: Developed by Drs. León Caruso, Cindy Mack, Idris Call and colleagues, with an educational jeannette from [employer]. Thrive Questionnaire Date Thrive assessed: 06/17/24 I am a: Patient What is your living situation today?: I have a place to live, but I am worried about losing it in the future Within the past 12 months, did the food you bought not last and you didn't have the money to get more?: Sometimes True Within the past 12 months, did you worry whether your food would run out before you got money to buy more?: Sometimes True Do you have trouble paying for medicines?: No Do you have trouble getting transportation to medical appointments?: No Do you have trouble paying your heating and electricity bill?: No Do you have trouble taking care of your child, family member or friend?: No Do you have trouble with day-to-day activities such as bathing, preparing meals, shopping, managing finances, etc.?: No Are you currently unemployed and looking for a job?: No Are you interested in more education?: No Please select the resources that you would like help with: Housing/Detention, Food and Utilities Currently or been in a relationship where the following occur: No concerns reported THRIVE Score: 3 AUDIT C Alcohol Use Questionnaire (AUDIT-C) 1. How often do you have a drink containing alcohol?: Never Total Score: 0 MARK-7 AMB Questionnaire MARK-7 Date MARK - 7 assessed: 09/15/24 Feeling nervous, anxious, or on edge: 3 = Nearly every day Not being able to stop or control worryin = More than half the days Worrying too much about different things: 2 = More than half the days Trouble relaxin = More than half the days Being so restless that it is hard to sit still: 0 = Not at all Becoming easily annoyed or irritable: 2 = More than half the days Feeling afraid as if something awful might happen: 1 = Several days Total MARK-7 score (0-4 normal; 5-9 mild; 10-14 moderate; 15-21 severe): 12 Source: Developed by Drs. León Caruso, Cindy Mack, Idris Call and colleagues, with an educational jeannette from [employer]. Physical exam (Primary Care) Vital Signs: Last Vital Signs Temp 97.3 F 09/15/24 09:37 Pulse 84 09/15/24 09:37 BP 110/60 09/15/24 09:37 Pulse Ox 99 09/15/24 09:37 Oxygen Delivery Method Room Air 09/15/24 09:37 BMI result Body Mass Index 19.7 Tobacco/Smoking Status: Tobacco use Status Tobacco use date assessed 09/15/24 09/15/24 09:43 Patient Tobacco Use Status Never used Tobacco 09/15/24 09:43 e-Cigarette/Vaping Use Never Used 09/15/24 09:43 PHQ-9: PHQ-9 Score PHQ-9: Total score 13 09/15/24 09:43 Depression Screening Interpretation: Positive Thrive Assessment: Date of Thrive Assessment Date Thrive assessed 06/17/24 09/15/24 09:43 Currently or been in a relationship where the following occur: No concerns reported Coding Level of Care Code Est Pt Level 4 (90025) Complex EM visit Add On G2211 Diagnoses Anxiety F41.9 Assessment & Plan Assessment & Plan (1) Anxiety: Code(s): F41.9 - Anxiety disorder, unspecified Category: Medical Plan: Fluvoxamine started. Recheck in one month. BW ordered. TSH to be followed. Plan History of Present Illness - The patient is a 23-year-old female presenting with anxiety management concerns. - She has a diagnosis of Generalized Anxiety Disorder and Obsessive-Compulsive Disorder; her symptoms include difficulty coping with routine changes, increased nervousness, and trouble driving. - There is a reported weight loss of 30 pounds over the past year, with ongoing challenges in appetite regulation. Also she delivered a healthy baby. - Describes insomnia linked to previous sertraline use and sedation when on hydroxyzine. - Historical success with fluvoxamine for Obsessive-Compulsive Disorder in adolescence. 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 - Therapy initiated approximately two months ago, but anxiety symptoms persist, and the patient is considering psychological aide. 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 - Resides in a trailer and is actively seeking new housing arrangements, experiencing stress with the transition. - Recently became a mother and stopped in May. Review of Systems - Psychiatric: Reports anxiety, insomnia, difficulty coping with changes, intrusive thoughts. Denies current depression. - Neurological: Denies dizziness, syncope. - General: Reports significant weight loss. Physical Exam General: Cooperative and healthy appearing Nutritional Appearance: Well nourished Orientation/consciousness: Patient oriented x3 Limitations: No limitations Head: Normal to inspection General: Appearance normal, both eyes and all related structures Neck: Normal visual inspection Chest: Normal palpation of entire chest wall Respiratory: N ormal respiratory effort Neurology: Patient oriented x3, reports anxiety and difficulty coping with changes. Results - Labs: Thyroid function tests pending for TSH evaluation. Plan 1. Generalized Anxiety Disorder - Start fluvoxamine 50 mg daily, monitor response. - Schedule follow-up in one month. 2. Obsessive-Compulsive Disorder - Initiate fluvoxamine therapy as per previous positive response. 3. Weight Loss - Track weight, support nutritional needs. 4. Insomnia - Address insomnia with fluvoxamine and recommend sleep hygiene. Discussion Notes I discussed with the patient the reintroduction of fluvoxamine due to its previous efficacy in managing her Obsessive-Compulsive Disorder without significant side effects. We reviewed the potential benefits of resuming this medication, including improved control over anxiety and obsessive symptoms, and secondarily improved sleep patterns. I articulated the importance of monitoring for any adverse reactions, particularly noting prior medication experiences. The patient agreed to a follow-up in one month to assess her response to fluvoxamine, at which point dosage adjustments may be considered. We discussed the option of additional therapy sessions to complement pharmacotherapy, emphasizing a comprehensive approach to managing her anxiety. Patient Instructions - Start taking fluvoxamine 50 mg every day. - Monitor how you feel and report any side effects. - Attend a follow-up visit in one month. - Try to eat a balanced diet and keep track of your weight. - Practice good sleep habits: go to bed at the same time each night and keep a relaxing bedtime routine. Orders: Orders Complete Blood Count no Diff Today F41.9 - Anxiety disorder, unspecified Thyroid Stimulating Hormone Today F41.9 - Anxiety disorder, unspecified Basic Metabolic Panel Today F41.9 - Anxiety disorder, unspecified Liver Panel Today F41.9 - Anxiety disorder, unspecified Medications: New fluvoxamine 50 mg PO BEDTIME 60 tabs 0RF
[2024-09-15 09:37] VITALS: BP 110/60; PULSE 84; TEMP 36.3; O2SAT 99; BMI 19.7
== END 2024-09-15 09:56 | disposition home or self-care (01) ==
LOC: HO.HMCH 09:28
PROVIDERS: PCP Internal Medicine; Visit Provider Internal Medicine
DX: F41.9 Anxiety disorder, unspecified (principal)

== ENCOUNTER → 2024-09-15 09:27 | Outpatient (BNVA) | payer OTHER, SELFPAY | PROVIDERS: PCP Internal Medicine; Visit Provider Internal Medicine | DX: F41.1 Generalized anxiety disorder (principal); F42.9 Obsessive-compulsive disorder, unspecified; R63.4 Abnormal weight loss; G47.00 Insomnia, unspecified | CPT/HCPCS: 99212 ==

== ENCOUNTER 2024-10-22 10:22 | Outpatient (REF) | payer OTHER, SELFPAY ==
[2024-10-22 10:58] LABS: Hematocrit 37.1 % (37.0-47.0); Hemoglobin 12.9 g/dl (12.0-16.0); Mean Corpuscular HGB Conc 34.8 g/dl (31.0-35.0); Mean Corpuscular Hemoglobin 30.1 pg (27.0-33.0); Mean Corpuscular Volume 86.7 fL (80.0-98.0); NRBC Abs Auto 0.000 X10*3/uL (0.0-0.012); NRBC Pct Auto 0.0 /100WBC (0.0-0.2); Platelet Count 247 X10*3/uL (160-400); Red Blood Count 4.28 X10*6/uL (4.20-5.50); White Blood Count 5.1 X10*3/uL (4.8-10.8)
[2024-10-22 11:41] LABS: Alanine Aminotransferase 10 U/L (0-31); Albumin Level 4.4 g/dL (3.5-5.0); Alkaline Phosphatase 68 U/L (39-117); Anion Gap 11 (12-20); Aspartate Amino Transferase 15 U/L (5-31); Blood Urea Nitrogen 14 mg/dL (9-16); Calcium 8.8 mg/dL (8.4-10.2); Carbon Dioxide 26 mmol/L (22-29); Chloride 107 mmol/L (96-108); Estimated Glomerular Filt Rate > 60; Potassium 3.7 mmol/L (3.3-5.1); Sodium 140 mmol/L (135-145); Total Protein 6.4 g/dL (6.5-8.0)
[2024-10-22 11:57] LABS: Thyroid Stimulating Hormone 1.42 uIU/mL (0.32-4.0)
== END 2024-10-22 10:23 | disposition home or self-care (01) ==
LOC: HO.LAB 10:22
PROVIDERS: PCP Internal Medicine; Visit Provider Internal Medicine
DX: F41.9 Anxiety disorder, unspecified (principal)
CPT/HCPCS: 36415; 80048; 80076; 84443; 85027

== ENCOUNTER 2024-10-27 10:01 | Outpatient (AMB) | payer OTHER, SELFPAY ==
--- NOTE | 2024-10-27 10:07 | A.OFFPC_ITS ---
Vital Signs 10/27/24 10:09 Height 5 ft 1 in Weight 100 lb BMI 18.9 BP 130/70 Blood Pressure Location Lt brachial Position Sitting Pulse 66 Pulse Source Pulse Oximeter Temp 97.1 F Temp Source Temporal Artery Scan Pulse Oximetry (%) 98 Oxygen Delivery Method Room Air Intake Visit Reasons: Med Review Intake Note: Patient is here to follow up on Med review. Wellness Trainer Required: No Technical Document Writer: Not Required per policy Accompanied by: Self / Same As Patient Allergies egg Allergy (Severe, Verified 10/27/24 10:08) Anaphylaxis fluvoxamine Allergy (Intermediate, Verified 10/27/24 10:12) vertigo sesame seed Allergy (Mild, Verified 10/27/24 10:08) Unknown ibuprofen Adverse Reaction (Mild, Verified 10/27/24 10:08) Nausea Tobacco use date assessed: 10/27/24 Dental Screening Dental Screen Date: 09/15/24 [facility] Medical History PTSD (post-traumatic stress disorder) Depression Positive test Fatigue Nausea Pre-conception counseling Missed menses Gastritis Anxiety Encounter to establish care Surgical History History of esophagogastroduodenoscopy (EGD) [place] teeth extracted Family History Mother Asthma Maternal Grandfather Lung cancer Father No problems noted. Maternal Grandmother Hx of diabetes mellitus Social History Housing: House Alcohol intake: never Patient Tobacco Use Status: Never used Tobacco e-Cigarette/Vaping Use: Never Used Second Hand Smoke Exposure: No service: No Current occupational status: employed Cognitive needs: No Hearing needs: No Vision needs: Yes (Glasses) Female Reproductive History Menstrual Age of Menarche: 10 Questionnaire Thrive Questionnaire Date Thrive assessed: 09/15/24 I am a: Patient What is your living situation today?: I have a place to live, but I am worried about losing it in the future Within the past 12 months, did the food you bought not last and you didn't have the money to get more?: Sometimes True Within the past 12 months, did you worry whether your food would run out before you got money to buy more?: Sometimes True Do you have trouble paying for medicines?: No Do you have trouble getting transportation to medical appointments?: No Do you have trouble paying your heating and electricity bill?: No Do you have trouble taking care of your child, family member or friend?: No Do you have trouble with day-to-day activities such as bathing, preparing meals, shopping, managing finances, etc.?: No Are you currently unemployed and looking for a job?: No Are you interested in more education?: No Currently or been in a relationship where the following occur: No concerns reported THRIVE Score: 3 MARK-7 AMB Questionnaire MARK-7 Date MARK - 7 assessed: 09/15/24 Source: Developed by Drs. León Caruso, Cindy Mack, Idris Call and colleagues, with an educational jeannette from [employer]. Physical exam (Primary Care) Vital Signs: Last Vital Signs Temp 97.1 F 10/27/24 10:09 Pulse 66 10/27/24 10:09 BP 130/70 10/27/24 10:09 Pulse Ox 98 10/27/24 10:09 Oxygen Delivery Method Room Air 10/27/24 10:09 BMI result Body Mass Index 18.9 Tobacco/Smoking Status: Tobacco use Status Tobacco use date assessed 10/27/24 10/27/24 10:14 Patient Tobacco Use Status Never used Tobacco 10/27/24 10:14 e-Cigarette/Vaping Use Never Used 10/27/24 10:14 Thrive Assessment: Date of Thrive Assessment Date Thrive assessed 09/15/24 10/27/24 10:14 Currently or been in a relationship where the following occur: No concerns reported Coding Level of Care Code Est Pt Level 4 (41111) Complex EM visit Add On G2211 Diagnoses Anxiety F41.9 Assessment & Plan Assessment & Plan (1) Anxiety: Code(s): F41.9 - Anxiety disorder, unspecified Category: Medical Plan: History of Present Illness - The patient is a 23-year-old female presenting with vertigo and nausea following the reintroduction of fluvoxamine. - Experienced vertigo and nausea after restarting fluvoxamine, previously tolerated well as a teenager. - Took fluvoxamine 50 mg daily for seven days, primarily at night, but discontinued due to severe vertigo and increased nausea. - Symptoms resolved within a day after discontinuation, but baseline nausea persists, likely related to anxiety. - Reports ongoing nausea, worsened by anxiety, with a history of migraines and gastritis, previously exacerbated by naproxen use. - Underwent an endoscopy in 2022, revealing gastritis due to naproxen, leading to discontinuation of the medication. - , experienced significant weight loss, dropping from 140 pounds to current weight, with decreased appetite attributed to stress. - Currently engaged in therapy at [facility], exploring non- pharmacological interventions for anxiety management. 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 - Housing: Lives in a trailer on in-laws' property, plans to move out by winter due to space constraints and stress. - Family: with a [id number] child, is currently unemployed due to a car accident and is applying for disability. - Financial: Experiencing financial stress due to housing costs and 's unemployment. Review of Systems - Neurological: Reports vertigo, dizziness, and migraines. - Gastrointestinal: Reports nausea, vomiting, decreased appetite, and weight loss. - Psychiatric: Reports anxiety and stress. Physical Exam General: Cooperative and healthy appearing Nutritional Appearance: Well nourished Orientation/consciousness: Patient oriented x3 Limitations: No limitations Head: Normal to inspection General: Appearance normal, both eyes and all related structures Neck: Normal visual inspection Chest: Normal palpation of entire chest wall Respiratory: N ormal respiratory effort Neurology: Patient oriented x3, reports vertigo and increased nausea due to medication. Results - Endoscopy (2022): Revealed gastritis due to naproxen use. Plan 1. Vertigo - Discontinued fluvoxamine due to severe vertigo. - Symptoms resolved within a day after stopping the medication. 2. Nausea - Persistent nausea likely related to anxiety, managed with non-pharmacological interventions. 3. Anxiety - Engaged in therapy at [facility], exploring mindfulness and meditation. 4. Migraine - History of migraines, previously managed with naproxen, which was discontinued due to gastritis. 5. Gastritis - Gastritis identified via endoscopy, related to naproxen use, leading to discontinuation of the medication. 6. Weight Loss - Significant weight loss attributed to stress and decreased appetite. Discussion Notes The patient and I discussed the adverse effects experienced with fluvoxamine, leading to its discontinuation. We reviewed her ongoing symptoms of nausea and anxiety, and the current non-pharmacological management approach through therapy. We also addressed her history of migraines and gastritis, emphasizing the importance of avoiding NSAIDs. The patient is advised to continue therapy and explore mindfulness techniques, with a follow-up planned to reassess her symptoms and management plan. Patient Instructions - Discontinue fluvoxamine and monitor for resolution of vertigo. - Continue therapy sessions and practice mindfulness techniques. - Avoid NSAIDs to prevent exacerbation of gastritis. - Follow up with the therapist and reassess symptoms as needed.
[2024-10-27 10:09] VITALS: BP 130/70; PULSE 66; TEMP 36.2; O2SAT 98; BMI 18.9
== END 2024-10-27 10:43 | disposition home or self-care (01) ==
LOC: HO.HMCH 10:02
PROVIDERS: PCP Internal Medicine; Visit Provider Internal Medicine
DX: F41.9 Anxiety disorder, unspecified (principal)

== ENCOUNTER → 2024-10-27 10:01 | Outpatient (BNVA) | payer OTHER, SELFPAY | PROVIDERS: PCP Internal Medicine; Visit Provider Internal Medicine | DX: R42 Dizziness and giddiness (principal); F41.9 Anxiety disorder, unspecified; G43.909 Migraine, unspecified, not intractable, without status migrainosus; R11.2 Nausea with vomiting, unspecified; R63.4 Abnormal weight loss; K29.70 Gastritis, unspecified, without bleeding | CPT/HCPCS: 99212 ==

== ENCOUNTER 2024-11-18 09:00 | Outpatient (AMB) | payer OTHER, SELFPAY ==
--- NOTE | 2024-11-18 09:01 | A.OFFVIS_ITS ---
Vital Signs 11/18/24 09:15 Height 5 ft 1 in Weight 97 lb BMI 18.3 BP 106/72 Blood Pressure Location Rt brachial Position Sitting Pulse 74 Pulse Source Pulse Oximeter Pulse Oximetry (%) 100 Oxygen Delivery Method Room Air Intake Visit Reasons: 3m Intake Note: ESTABLISHED PATIENT for Constipation, GERD, and fatigue mgmt. Chief Complaint; C.O. continued weight loss (unintentional), appetite fluctuations, and occasional persistence of N+V. Pt states she has been doing better overall and has been avoiding triggers (certain meats). Pt is still open to discussing hand deicer element winder referral. Resource Conservation Specialist Required: No Accompanied by: Self / Same As Patient Allergies egg Allergy (Severe, Verified 11/18/24 09:03) Anaphylaxis fluvoxamine Allergy (Intermediate, Verified 11/18/24 09:03) vertigo sesame seed Allergy (Mild, Verified 11/18/24 09:03) Unknown ibuprofen Adverse Reaction (Mild, Verified 11/18/24 09:03) Nausea HPI HPI 3m: Details: LAST VISIT: Nausea Fatigue Vomiting GERD (gastroesophageal reflux disease) Anxiety disorder Postprandial abdominal bloating Plan Patient will continue taking pantoprazole in the morning. Patient states that famotidine does not help. She did well with sucralfate in the past. Will start her on sucralfate at bedtime. Discussed with patient trying to low FODMAP diet like she did before and she did well with that. Patient feels symptoms 2 hours with bloating. Stay away from gluten and try some hours ago bread. Say she tries to avoid she says she she recognizes as well as she will avoid. Patient will follow-up in the office in 2-3 months, sooner on as needed basis. She is agreeable to this plan and verbalizes understanding of instructions. She was given the opportunity to ask questions and all questions answered. ? Thank you for allowing to participate in her care New sucralfate 1 g PO BEDTIME 30 tabs 4RF R19.7 Discontinued famotidine Discontinued Reason: Doctor's Order 20 mg PO BEDTIME 90 tabs 1RF TODAY'S VISIT Patient is here today for follow-up. Patient reports that she has been doing better, less nausea and vomiting. However patient reports that she has been going under a lot of stress. Patient states that her is on disability due to his illness. Patient reports that she is the only 1 in the family that is working. Her in-laws are moving to [place] and daily need to find an apartment to stay. Patient is going through difficult times and months of stress. Patient is trying to eat protein, however she is unable to tolerate meat, unable to eat eggs as she is allergic to them. Patient is taking sucralfate at bedtime and in the afternoon. Patient is trying to be good about not forgetting to take it with her to work. 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 Patient reports occasional nausea, sometimes vomiting. Patient has last 12 lb since last visit. She feels like it is related to the stress and her being afraid to try to eat something. We will definitely refer her to see a dietitian so they can help her with high-calorie diet. Patient reports that she is moving her bowels well without any issues. [facility] Medical History PTSD (post-traumatic stress disorder) Depression Positive test Fatigue Nausea Pre-conception counseling Missed menses Gastritis Anxiety Encounter to establish care Surgical History History of esophagogastroduodenoscopy (EGD) [place] teeth extracted Family History Mother Asthma Maternal Grandfather Lung cancer Father No problems noted. Maternal Grandmother Hx of diabetes mellitus Social History Housing: House Alcohol intake: never Patient Tobacco Use Status: Never used Tobacco e-Cigarette/Vaping Use: Never Used Second Hand Smoke Exposure: No service: No Current occupational status: employed Cognitive needs: No Hearing needs: No Vision needs: Yes (Glasses) Female Reproductive History Menstrual Age of Menarche: 10 Review of Systems Const Denies weight gain and Reports weight loss ENT Reports no additional complaints, Denies dysphagia and Denies odynophagia Card Reports no additional complaints Resp Reports no additional complaints GI Reports abdominal pain (Epigastric), Denies belching, Denies melena, Reports bloating, Denies change in bowel habits, Denies dysphagia, Denies excessive flatus, Reports dyspepsia, Reports heartburn, Denies diarrhea, Denies loose stools, Denies nausea, Denies odynophagia and Denies vomiting Reports no additional complaints Musc Reports no additional complaints Neuro Reports no additional complaints Psych Reports no additional complaints Endo Reports no additional complaints Physical Exam Vital Signs: Last Vital Signs Pulse 74 11/18/24 09:15 BP 106/72 11/18/24 09:15 Pulse Ox 100 11/18/24 09:15 Oxygen Delivery Method Room Air 11/18/24 09:15 BMI result Body Mass Index 18.3 Const General: healthy appearing, no acute distress and well developed Nutritional Appearance: well nourished Orientation/consciousness: patient oriented x3 Resp Effort & Inspection: normal respiratory effort, able to speak in complete sentences, no tracheal deviation and symmetric chest movement Auscultation: clear to auscultation bilaterally Cardio Rate: regular rate GI Auscultation: normal bowel sounds General: Yes no CVA tenderness Back/Spine/Pelvis Back: no CVA tenderness Skin General skin exam: elasticity normal, turgor normal and dry skin Neuro General: patient oriented x3 Psych Appearance: grossly normal Mental Status: mental status grossly normal Assessment & Plan Assessment & Plan (1) Nausea: Code(s): R11.0 - Nausea Category: Medical (2) Fatigue: Code(s): R53.83 - Other fatigue Category: Medical Qualifiers: Fatigue type: unspecified Qualified Code(s): R53.83 - Other fatigue (3) Vomiting: Code(s): R11.10 - Vomiting, unspecified Category: Medical Qualifiers: Vomiting type: cyclical vomiting syndrome unrelated to migraine Qualified Code(s): R11.15 - Cyclical vomiting syndrome unrelated to migraine (4) Gastroesophageal reflux disease: Code(s): K21.9 - Gastro-esophageal reflux disease without esophagitis Qualifiers: Esophagitis presence: esophagitis presence not specified Qualified Code(s): K21.9 - Gastro-esophageal reflux disease without esophagitis (5) Anxiety disorder: Code(s): F41.9 - Anxiety disorder, unspecified Qualifiers: Anxiety disorder type: generalized anxiety disorder Qualified Code(s): F41.1 - Generalized anxiety disorder (6) Postprandial abdominal bloating: Code(s): R14.0 - Abdominal distension (gaseous) Plan Patient was encouraged to continue her therapy. Try stress relief exercises. Continue pantoprazole and sucralfate. Avoid dietary triggers and late night sn acking. Discussed with patient high calorie meals. List of food and meal preps given to patient. Referral to dietitian to help with meal planning. Patient will follow-up in 3 months, sooner on as needed basis. She is agreeable to this plan and verbalizes understanding of instructions. She was given the opportunity to ask questions and all questions answered. Thank you for allowing me to participate in her care Orders: Referrals Hospitality Job Titles Nutrition Referral R63.4 - Abnormal weight loss Coding Level of Care Code Est Pt Level 4 (84861) Complex EM visit Add On G2211 Diagnoses Nausea R11.0 Fatigue, unspecified type R53.83 Fatigue type: unspecified Cyclical vomiting syndrome not associated with migraine R11.15 Vomiting type: cyclical vomiting syndrome unrelated to migraine Gastroesophageal reflux disease, unspecified whether esophagitis present K21.9 Esophagitis presence: esophagitis presence not specified Generalized anxiety disorder F41.1 Anxiety disorder type: generalized anxiety disorder Postprandial abdominal bloating R14.0 Time Spent (min) 35 Comment 25 minutes spent with patient and additional 10 minutes spent reviewing her records
[2024-11-18 09:15] VITALS: BP 106/72; PULSE 74; O2SAT 100; BMI 18.3
== END 2024-11-18 09:39 | disposition home or self-care (01) ==
LOC: HO.HGI 09:00
PROVIDERS: PCP Internal Medicine; Visit Provider Nurse Practitioner Family
DX: R11.0 Nausea (principal); R53.83 Other fatigue; R11.15 Cyclical vomiting syndrome unrelated to migraine; K21.9 Gastro-esophageal reflux disease without esophagitis; F41.1 Generalized anxiety disorder; R14.0 Abdominal distension (gaseous)
CPT/HCPCS: 99214

== ENCOUNTER → 2024-11-18 09:00 | Outpatient (BNVA) | payer OTHER, SELFPAY | PROVIDERS: PCP Internal Medicine; Visit Provider Nurse Practitioner Family | DX: K21.9 Gastro-esophageal reflux disease without esophagitis (principal); R11.0 Nausea; R53.83 Other fatigue; F41.1 Generalized anxiety disorder; R14.0 Abdominal distension (gaseous); R11.15 Cyclical vomiting syndrome unrelated to migraine | CPT/HCPCS: 99212 ==

== ENCOUNTER 2025-01-10 08:39 | Outpatient (AMB) | payer OTHER, SELFPAY ==
--- NOTE | 2025-01-10 08:38 | A.OFFVIS_ITS ---
VS Expanded 01/10/25 09:44 01/19/25 21:16 Height 5 ft 1 in 5 ft 1 in Weight 94 lb 12.78 oz 95 lb BMI 17.9 17.9 Intake Visit Reasons: Abnormal weight loss Allergies egg Allergy (Severe, Verified 11/18/24 09:03) Anaphylaxis fluvoxamine Allergy (Intermediate, Verified 11/18/24 09:03) vertigo sesame seed Allergy (Mild, Verified 11/18/24 09:03) Unknown ibuprofen Adverse Reaction (Mild, Verified 11/18/24 09:03) Nausea Nutrition Presentation Details: Pt presents for MNT for unintentional weight loss Pt reports hx of anxiety and OCD Pt reports having a 15 month old child. wt before 115-120 lbs Pt's follows vegan diet. Pt reports working on reducing meats (beef /pork, poultry) since the beginning of the year. Pt denies vomiting,diarrhea, or exercises Admits to consuming small portions, often due to stress meal routine crackers in am , not hungry, feels nauseous 1pm : salad with beans or sand peanut butter or ham and cheese , water 5-6 pm : pasta salad with cheese, water beverages:water, juice BS Monitoring Most Recent Diabetes Results: Creatinine, (0.5-1.4) 0.75 mg/dL 10/22/24 BUN, (9-16) 14 mg/dL 10/22/24 Sodium, (135-145) 140 mmol/L 10/22/24 Potassium, (3.3-5.1) 3.7 mmol/L 10/22/24 Chloride, (96-108) 107 mmol/L 10/22/24 Carbon Dioxide, (22-29) 26 mmol/L 10/22/24 Calcium, (8.4-10.2) 8.8 mg/dL Δ 10/22/24 AST, (5-31) 15 U/L 10/22/24 ALT, (0-31) 10 U/L 10/22/24 Total Protein, (6.5-8.0) 6.4 g/dL L 10/22/24 Albumin, (3.5-5.0) 4.4 g/dL 10/22/24 ZZO-Rglabhv-Bb.Jeor Equation Height: 5 ft 1 in Weight: 95 lb Resting Metabolic Rate: 1109.94 Calculated Activity Level: Mild Activity Calories Needed to Maintain Weight: 1526.17 Diagnosis Nutrition problem #1: inadequate protein energy As related to (etiology) #1: lack of nutrit education As evidenced by (sign/symptom) #1: low BMI (and weight loss d/t diet changes - switching to vegetarian/vegan, pt lossing weight ) PFSH Medical History PTSD (post-traumatic stress disorder) Depression Positive test Fatigue Nausea Pre-conception counseling Missed menses Gastritis Anxiety Encounter to establish care Surgical History History of esophagogastroduodenoscopy (EGD) [place] teeth extracted Family History Mother Asthma Maternal Grandfather Lung cancer Father No problems noted. Maternal Grandmother Hx of diabetes mellitus Social History Housing: House Alcohol intake: never Patient Tobacco Use Status: Never used Tobacco e-Cigarette/Vaping Use: Never Used Second Hand Smoke Exposure: No service: No Current occupational status: employed Cognitive needs: No Hearing needs: No Vision needs: Yes (Glasses) Female Reproductive History Menstrual Age of Menarche: 10 Assessment & Plan Assessment & Plan (1) Abnormal weight loss: Code(s): R63.4 - Abnormal weight loss Category: Medical Plan: current wt: 43 kg ( 01/05 ) est kcal needs as per MSJ: 1500 + gradual increase in calories by 500-1000 to promote weight gain est protein needs as per 1-1.2 g/kg BW: 52 est fluid needs as per 30 ml/kg BW: 1500 Recommended fiber > 12 g /day and gradually increase up to 25-28 g /day or as tolerated Nutrition topics discussed : Reviewed (R), Pt verbalized understanding (V) , not applicable (N/A) R, V, N/A : Healthy Plate Method Concept: R, V, N/A: Carbohydrates: food sources of carbohydrates, relationship of carbohydrates to blood glucose, fatty liver GI health. Recommended total amount of carbohydrates per meals and snack. Differences between simple carbohydrates and complex carbohydrates R, : Lean protein foods including vegan , vegetarian sources of protein. Benefits of protein (including but not limited to healing, nutritional value , benefits in prevention of muscle wasting l R, V, N/A: Fats : Source of fats, benefits of fats. Difference between saturated and unsaturated fats. Saturated fats and its contribution to inflammation R, V, N/A: Fiber: food sources and role of fiber in the diet (including but not limited to its role as a prebiotic, benefits in constipation, role in IBS , role in glucose control and cholesterol level) R, V, N/A: Hydration: role of hydration and prevention of dehydration or over hydration. Foods and water content. R, : Vitamins and Minerals in foods and Nutritional supplements as meal supplements R, V, N/A: Interpreting food labels, including serving size, macronutrients, vitamins, minerals, allergens, ingredient list , % daily value Patient Instructions: Drink 8 oz of soy milk with each meal, 2 times a day Incorporate protein sources of foods with starches (example add nut butter , 1/2 cup of cottage cheese, or 1 eggs, or 1/4- 1/2 block of tofu, to your meal 2 times/day , choosing a variety of protein) Coding Level of Care Code Nutr Indiv Intake (50078) Diagnoses Abnormal weight loss R63.4 Time Spent (min) 30
--- OUTSIDE RECORDS SUMMARY | 2025-01-10 09:07 | XMS_ITS | Encounter Summary ---
Author Organization [facility] Address [address] [place] [id number] Phone Care Team Providers Care Spa Director Name Role Phone Oniel Kearney MD Primary Care Provid er Encounter Details Date Type Department Care Team (Late st Contact Info) Description 06/01/2024 Procedure Pass [facility] Ct Scan - [address] [id number] Social History Tobacco Use Types Packs/Day Years Used Date Smoking Tobacco: Never Smokeless Tobacco: Never Alcohol Use Standard Drinks/Week Comments Not Currently 0 (1 standard drink = 0.6 oz pur e alcohol) very rare Education Answer Date Recorded Are you interested in more education? Not on yolis e 02/22/2024 Are you concerned about learning? Not on file 02/22/2024 No 02/22/2024 No 02/22/2024 Digital Access Answer Date Recorded No 02/22/2024 No 02/22/2024 Reliable internet access at home? Not on file 02/22/2024 Device with a working camera? Not on file Comments No Sex and Gender Information Value Date Recorded Sex Assigned at Not on file Legal Sex Female 10:38 AM EST Gender Identity Not on file Sexual Orientation Not on file documented as of this encounter Plan of Treatment Not on file documented as of this encounter Visit Diagnoses Not on filedocumented in this encounter Care Teams Spa Director Relationship Specialty Start Date End Date Oniel Kearney MD [address] [place] [id number] PCP - General Internal Medicine 02/22/24 documented as of this encounter Additional Source Comments The information contained in this document represents components of the legal health record. It is not the complete legal health record.[facility]
--- OUTSIDE RECORDS SUMMARY | 2025-01-10 09:08 | XMS_ITS | Clinical Summary ---
Author Organization [facility] Address [address] [place] [phone] Phone Care Team Providers Care Nuclear Reactor Operator Name Role Phone Oniel Kearney MD Primary Care Provid er Allergies Active Allergy Reactions Criticality Noted Date Comments Egg 04/18/2024 Sesame Oil 04/18/2024 Medications PNV no.153/FA/om3/dh a/epa/fish ( GUMMIES ORAL) Take by mouth. 08/10/2023 Active famotidine (PEPCID) 20 MG tablet 20 mg. 01/31/2024 Active Family History Relation Status Comments Daughter Alive Father Alive Mother Alive Social History Tobacco Use Types Packs/Day Years Used Date Smoking Tobacco: Never Smokeless Tobacco: Never Tobacco Cessation:Counseling Given: Not Answered Alcohol Use Standard Drinks/Week Comments Not Currently [...] with a working camera? Not on file Intimate Partner Violence Answer Date R ecorded Are you denied basic needs s uch as food, clothing, or medical care? No 07/23/2024 In the past 12 months have y ou been in a relationship with a person who hurts, threatens, or tries to control you? No 07/23/2024 Are you denied basic needs s uch as food, clothing, or medical care? No 07/23/2024 In the past 12 months have y ou been in a relationship with a person who hurts, threatens, or tries to control you? No 07/23/2024 Comments No Sex and Gender Information Value Date Recorded Sex Assigned at Not on file Legal Sex Female 10:38 AM EST Gender Identity Not on file Sexual Orientation Not on file Last Filed Vital Signs Vital Sign Reading Time Taken Comments Blood Pressure 109/77 07/23/2024 4:47 PM EDT Pulse 72 07/23/2024 4:47 PM EDT Temperature 35.9 C (96.6 F) 07/23/2024 4:47 PM EDT Respiratory Rate 16 07/23/2024 4:47 PM EDT Oxygen Saturation 100% 07/23/2024 4:47 PM EDT Inhaled Oxygen Concentration - - Weight 56.7 kg (125 lb) 07/23/2024 12:09 PM EDT Height 152.4 cm (5') 07/23/2024 12:09 PM EDT Body Mass Index 24.41 07/23/2024 12:09 PM EDT Plan of Treatment Health Maintenance Due Date Last Done Comments Adult Td,Tdap Booster 1998 DEPRESSION SCREENING 2010 HPV VACCINES (1 - 3-dose series) 2013 HEPATITIS C SCREENING 2016 HIV ONE-TIME SCREENING (18-6 5 YEARS) 2016 INFLUENZA VACCINE (#1) 2024 COVID-19 VACCINE (2023-2 5 season) 2024 PAP SMEAR 04/18/2027 04/18/2024 SMOKING STATUS SCREENING (On ce After 26 Yrs) Completed 07/23/2024 HEPATITIS A VACCINES Aged Out No long er eligible based on patient's age to complete this topic HIB VACCINES Aged Out No longer eligi ble based on patient's age to complete this topic MENINGOCOCCAL VACCINES (ACWY) Aged Out No longer eligible based on patient's age to complete this topic MENINGOCOCCAL VACCINES (B) Aged Out N o longer eligible based on patient's age to complete this topic PNEUMOCOCCAL VACCINES (0-49 years) Aged Out No longer eligible based on patient's age to complete this topic Medical Devices Not on file Procedures Procedure Name Priority Date/Time Associated Diagnosis Comments PAP TEST Routine 04/18/2024 12:00 AM EST from Last 3 Months or Most Recently Relevant to Health Maintenance Results * Pap Test (04/18/2024 12:00 AM EST) 04/18/2024 04/19/2024 8:3 4 AM EST Narrative SEE NARRATIVE - 04/21/2024 2:01 [place] [address] Quality Control Inspector: Thomas Montana MD HOSPITAL FOOD SERVICE WORKER Cytology Report FINAL DIAGNOSIS A. PAP SMEAR (THIN PREP) CE: SPECIMEN ADEQUACY: Satisfactory for evaluation; transformation zone present. INTERPRETATION: NEGATIVE FOR INTRAEPITHELIAL LESION OR MALIGNANCY. This specimen was analyzed by the automated ThinPrep Imaging System ([employer] and the selected posada were reviewed by a computing tutor. Electronically Signed Out By: MANUEL Fields(ASCP) The Pap test is a screening test primarily for squamous cancers and precursors and has associated false-negative and false-positive results. New technologies such as liquid-based preparations may decrease but will not eliminate all false-negative results. Regular sampling and follow-up of unexplained clinical signs and symptoms are recommended to minimize false negative results. CLINICAL HISTORY Date of Last Menstrual Period: 04/12/24 Other Clinical Conditions: Screening Pap SPECIMEN SOURCE A: PAP SMEAR (THIN PREP) CE Patient Name: LANDON TURCIOS : 2000 (Age: 23) Sex: F Institution[facility] Location: [facility] Date of Collection: 04/18/2024 Date of Reported: 04/21/2024 14:01 Results to: Jacquelin Esparza CNM Jacquelin Esparza CNM CYTOLOGY ORDERABLES Gale mchugh Result SEE NARRATIVE from Last 3 Months or Most Recently Relevant to Health Maintenance [place] [address] [place] [address] [place] [address] [place] [address] [place] [address] [address] ACO Care Teams Nuclear Reactor Operator Relationship Specialty Start Date End Date Oniel Kearney MD [address] [place] [phone] PCP - General Internal Medicine 02/22/24 Additional Source Comments The information contained in this document represents components of the legal health record. It is not the complete legal health record[facility]
[2025-01-10 09:44] VITALS: BMI 17.9
[2025-01-19 21:16] VITALS: BMI 17.9
== END 2025-01-10 09:48 | disposition home or self-care (01) ==
LOC: HO.ENCR 08:40
PROVIDERS: PCP Internal Medicine; Visit Provider Dietitian, Registered
DX: R63.4 Abnormal weight loss (principal)

== ENCOUNTER → 2025-01-10 08:39 | Outpatient (BNVA) | payer OTHER, SELFPAY | PROVIDERS: PCP Internal Medicine; Visit Provider Dietitian, Registered | DX: R63.4 Abnormal weight loss (principal) | CPT/HCPCS: 97802 ==

== ENCOUNTER 2025-02-14 09:22 | Outpatient (AMB) | payer OTHER, SELFPAY ==
--- NOTE | 2025-02-14 09:26 | A.OFFVIS_ITS ---
Vital Signs 02/14/25 09:34 Height 5 ft 1 in Weight 92 lb BMI 17.4 BP 116/68 Blood Pressure Location Rt brachial Position Sitting Pulse 84 Pulse Source Pulse Oximeter Pulse Oximetry (%) 100 Oxygen Delivery Method Room Air Intake Visit Reasons: 3 mo f/u Gerd Intake Note: ESTABLISHED PATIENT for Constipation, GERD, and fatigue mgmt. Chief Complaint; C.O. intermittent dizziness which pt was concerned could be a side effect of their PPI. Pt denies any new GI concerns or sx. Wood Ski Maker Required: No Accompanied by: Self / Same As Patient Allergies egg Allergy (Severe, Verified 11/18/24 09:03) Anaphylaxis fluvoxamine Allergy (Intermediate, Verified 11/18/24 09:03) vertigo sesame seed Allergy (Mild, Verified 11/18/24 09:03) Unknown ibuprofen Adverse Reaction (Mild, Verified 11/18/24 09:03) Nausea HPI HPI 3 mo f/u Gerd: Details: LAST VISIT: Nausea Fatigue Vomiting Gastroesophageal reflux disease Anxiety disorder Postprandial abdominal bloating Plan Patient was encouraged to continue her therapy. Try stress relief exercises. Continue pantoprazole and sucralfate. Avoid dietary triggers and late night snacking. Discussed with patient high calorie meals. List of food and meal preps given to patient. Referral to dietitian to help with meal planning. Patient will follow-up in 3 months, sooner on as needed basis. She is agreeable to this plan and verbalizes understanding of instructions. She was given the opportunity to ask questions and all questions answered. ? Thank you for allowing me to participate in her care Referrals High School Science Tutor Nutrition Referral R63.4 TODAY'S VISIT: Patient is here today for follow-up. Patient reports that she has been doing better since last visit. She feels that I could her acid reflux is definitely worse when she is anxious. Patient states that she just moved to her you apartment. Reports feeling anxious and dizzy when driving. Patient however reports that she always has been anxious when driving. Patient is taking pantoprazole and feels like it is helping her. Patient is taking sucralfate in the afternoon and at bedtime. Patient is trying to eat better. She is trying to add protein to some of the meals that she already makes for herself. Patient seen dietitian and has another appointment in March. Patient reports that she received a lot of good information and is trying to follow her recommendations. Patient reports occasional nausea in the morning when she wakes up, however patient does admit that sometimes she will eat late at night as she is the most hungry at that time. [facility] Medical History PTSD (post-traumatic stress disorder) Depression Positive test Fatigue Nausea Pre-conception counseling Missed menses Gastritis Anxiety Encounter to establish care Surgical History History of esophagogastroduodenoscopy (EGD) [place] teeth extracted Family History Mother Asthma Maternal Grandfather Lung cancer Father No problems noted. Maternal Grandmother Hx of diabetes mellitus Social History Housing: House Alcohol intake: never Patient Tobacco Use Status: Never used Tobacco e-Cigarette/Vaping Use: Never Used Second Hand Smoke Exposure: No service: No Current occupational status: employed Cognitive needs: No Hearing needs: No Vision needs: Yes (Glasses) Female Reproductive History Menstrual Age of Menarche: 10 Review of Systems Const Denies weight gain and Denies weight loss ENT Reports no additional complaints, Denies dysphagia and Denies odynophagia Card Reports no additional complaints Resp Reports no additional complaints GI Denies abdominal pain, Denies belching, Denies melena, Denies bloating, Denies change in bowel habits, Denies dysphagia, Denies excessive flatus, Denies dyspepsia, Denies heartburn, Denies diarrhea, Denies loose stools, Denies nausea, Denies odynophagia and Denies vomiting Musc Reports no additional complaints Neuro Reports no additional complaints Psych Reports no additional complaints Endo Reports no additional complaints Physical Exam Const General: healthy appearing, no acute distress and well developed Nutritional Appearance: well nourished Orientation/consciousness: patient oriented x3 Resp Effort & Inspection: normal respiratory effort, able to speak in complete sentences, no tracheal deviation and symmetric chest movement Auscultation: clear to auscultation bilaterally Cardio Rate: regular rate GI Auscultation: normal bowel sounds General: Yes no CVA tenderness Back/Spine/Pelvis Back: no CVA tenderness Skin General skin exam: elasticity normal, turgor normal and dry skin Neuro General: patient oriented x3 Psych Appearance: grossly normal Mental Status: mental status grossly normal Assessment & Plan Assessment & Plan (1) Vomiting: Code(s): R11.10 - Vomiting, unspecified Category: Medical Qualifiers: Vomiting type: cyclical vomiting syndrome unrelated to migraine Qualified Code(s): R11.15 - Cyclical vomiting syndrome unrelated to migraine (2) Gastritis: Code(s): K29.70 - Gastritis, unspecified, without bleeding Category: Medical Qualifiers: Gastritis type: superficial Chronicity: chronic Gastritis bleeding: without bleeding Qualified Code(s): K29.30 - Chronic superficial gastritis without bleeding (3) Nausea: Code(s): R11.0 - Nausea Category: Medical (4) Postprandial epigastric pain: Code(s): R10.13 - Epigastric pain Plan Patient will continue taking pantoprazole in the morning. Patient was encouraged to try to eat something in the morning. Continue avoiding dietary triggers. Avoid eating late at night. Take sucralfate in the afternoon and at bedtime. Staying upright for minimal and 2-3 hours after meals discussed with patient. Smaller meals and more often. Continue visits with dietitian. Follow recommendations made by her. Increased protein intake Medications: Refilled sucralfate 1 g PO BID 180 tabs 4RF R19.7 - Diarrhea, unspecified Coding Level of Care Code Est Pt Level 4 (79738) Complex EM visit Add On G2211 Diagnoses Cyclical vomiting syndrome not associated with migraine R11.15 Vomiting type: cyclical vomiting syndrome unrelated to migraine Chronic superficial gastritis without bleeding K29.30 Gastritis type: superficial Chronicity: chronic Gastritis bleeding: without bleeding Nausea R11.0 Postprandial epigastric pain R10.13 Time Spent (min) 35 Comment 25 minutes spent with patient and additional 10 minutes spent reviewing her records
[2025-02-14 09:34] VITALS: BP 116/68; PULSE 84; O2SAT 100; BMI 17.4
--- OUTSIDE RECORDS SUMMARY | 2025-02-14 10:15 | XMS_ITS | Clinical Summary ---
Author Organization [facility] Address [address] [place] [address] Phone Care Team Providers Care Coloring Checker Name Role Phone Oniel Kearney MD Primary [...] 2016 INFLUENZA VACCINE (#1) 2024 COVID-19 VACCINE (2024-2 6 season) 2024 PAP SMEAR 04/18/2027 04/18/2024 SMOKING [...] * Pap Test (04/18/2024 12:00 AM EST) [place] [address] Temperature Logging Operator: Thomas Montana MD SENIOR SALES ADMINISTRATOR Cytology Report FINAL DIAGNOSIS A. PAP SMEAR (THIN PREP) CE: SPECIMEN ADEQUACY: Satisfactory for evaluation; transformation zone present. INTERPRETATION: NEGATIVE FOR INTRAEPITHELIAL LESION OR MALIGNANCY. This specimen was analyzed by the automated ThinPrep Imaging System (Treater.) and the selected posada were reviewed by a case specialist. Electronically Signed Out By: MANUEL Fields(ASCP) The [...] : 2000 (Age: 23) Sex: F Institution: [facility] Location: [facility] Date of Collection: 04/18/2024 Date of Reported: 04/21/2024 14:01 Results to: Jacquelin Esparza [facility] Final Diagnosis A. PAP SMEAR (THIN PREP) CE: SPECIMEN ADEQUACY: Satisfactory for evaluation; transformation zone present. INTERPRETATION: NEGATIVE FOR INTRAEPITHELIAL LESION OR MALIGNANCY. This specimen was analyzed by the automated ThinPrep Imaging System (Treater.) and the selected posada were reviewed by a case specialist. [facility] Conversion Type (Conversion Source) 04/18/2024 04/19/2024 8:34 AM EST Jacquelin Esparza CN CYTOLOGY ORDERABLES Edit ed Result - Final [facility] [address] [place] [address] from Last 3 Months or Most Recently Relevant to Health Maintenance Insurance [employer] [place] [address] [place] [address] [address] [place] [address] [facility] [employer] Care Teams Coloring Checker Relationship Specialty Start Date End Date Oniel Kearney MD [address] [place] [address] PCP - General Internal Medicine 02/22/24 Additional Source Comments The information contained in this document represents components of the legal health record. It is not the complete legal health record.[facility]
--- OUTSIDE RECORDS SUMMARY | 2025-02-14 10:15 | XMS_ITS | Encounter Summary ---
Author Organization [facility] Address [address] [place] [phone] Phone Care Team Providers Care Genetic Counselor Name Role Phone Oniel Kearney MD Primary Care Provid er Encounter Details Date Type Department Care Team (Late st Contact Info) Description 06/01/2024 Procedure Pass [facility], [facility] Scan - [address] [id number] Social History Tobacco Use Types Packs/Day Years [...] on filedocumented in this encounter Care Teams Genetic Counselor Relationship Specialty Start Date End Date Oniel Kearney MD [address] [place] [id number] PCP - General Internal Medicine 02/22/24 documented as of this encounter Additional Source Comments The information contained in this document represents components of the legal health record. It is not the complete legal health record.[facility]
== END 2025-02-14 09:49 | disposition home or self-care (01) ==
LOC: HO.HGI 09:22
PROVIDERS: PCP Internal Medicine; Visit Provider Nurse Practitioner Family
DX: R11.15 Cyclical vomiting syndrome unrelated to migraine (principal); K29.30 Chronic superficial gastritis without bleeding; R11.0 Nausea; R10.13 Epigastric pain
CPT/HCPCS: 99214

== ENCOUNTER → 2025-02-14 09:22 | Outpatient (BNVA) | payer OTHER, SELFPAY | PROVIDERS: PCP Internal Medicine; Visit Provider Nurse Practitioner Family | DX: R11.15 Cyclical vomiting syndrome unrelated to migraine (principal); K29.30 Chronic superficial gastritis without bleeding; R11.0 Nausea; R10.13 Epigastric pain | CPT/HCPCS: 99212 ==

== ENCOUNTER 2025-03-17 09:03 | Outpatient (AMB) | payer OTHER, SELFPAY ==
--- NOTE | 2025-03-17 09:04 | A.OFFPC_ITS ---
Vital Signs 03/17/25 09:05 Height 5 ft 1 in Weight 94 lb 4 oz BMI 17.8 BP 100/60 Blood Pressure Location Lt brachial Position Sitting Pulse 90 Pulse Source Pulse Oximeter Pulse Oximetry (%) 97 Oxygen Delivery Method Room Air Intake Visit Reasons: Sore throat for 1 month Quality Systems Manager Required: No Accompanied by: Self / Same As Patient Allergies egg Allergy (Severe, Verified 03/17/25 09:25) Anaphylaxis fluvoxamine Allergy (Intermediate, Verified 03/17/25 09:25) vertigo sesame seed Allergy (Mild, Verified 03/17/25 09:25) Unknown ibuprofen Adverse Reaction (Mild, Verified 03/17/25 09:25) Nausea Medication List - Last Reconciled 03/17/25 by Melvin Hall MD epinephrine (EpiPen 2-Paco) 0.3 mg (0.3 mL) IM Q4H PRN ondansetron 4 mg PO Q8H PRN pantoprazole 40 mg PO QAM vit no.[id number] 28 mg iron- 800 mcg (Classic ) tabs PO DAILY sucralfate 1 g PO BID Tobacco use date assessed: 03/17/25 Dental Screening Dental Screen Date: 03/17/25 Did you have a dental visit in the last 12 months?: No Did you have a dental problem in the last 6 months where you did not have access to dental care?: No Was dental information given to patient?: No HPI Sore throat for 1 month HPI Details - The patient is a 24 year old female pr esenting with a right-sided sore throat and a clogged right ear. - Her symptoms began in early February a nd have persisted, characterized by pain localized to the right side of her throat, which is most painful when swallowing. - She notes that drinking liquids does n ot hurt as much as swallowing food, and she denies any dysphagia. - The pain is also noticeable at night, and wakes her from sleep at times, and is most severe in the morning. - She has used NyQuil to help with sleep and daytime cold medications for pain, though the daytime pills cause nausea. - Associated symptoms include a slight c ough and congestion, with a sensation of needing to clear her throat, though nothing comes up. - She also reports a runny nose, which s he attributes to allergies, and denies any fever. Denies any chest pains, no SOB - Her past medical history is significan t for acid reflux, for which she takes pantoprazole daily, and a history of strep throat, though she states the current symptoms feel different. - States that she did not have frequent sore throat or ear infections when she was growing up - She reports an allergy to NSAIDs like ibuprofen. - Her last course of antibiotics was a l gus time ago. [facility] Medical History PTSD (post-traumatic stress disorder) Depression Positive test Fatigue Nausea Pre-conception counseling Missed menses Gastritis Anxiety Encounter to establish care Surgical History History of esophagogastroduodenoscopy (EGD) [place] teeth extracted Family History Mother Asthma Maternal Grandfather Lung cancer Father No problems noted. Maternal Grandmother Hx of diabetes mellitus Social History Housing: House Alcohol intake: never Patient Tobacco Use Status: Never used Tobacco e-Cigarette/Vaping Use: Never Used Second Hand Smoke Exposure: No service: No Current occupational status: employed Cognitive needs: No Hearing needs: No Vision needs: Yes (Glasses) Female Reproductive History Menstrual Age of Menarche: 10 Questionnaire PHQ-9 Over the last 2 weeks, how often have you been bothered by any of the following problems? 1. Little interest or pleasure in doing things: more than half the days 2. Feeling down, depressed, or hopeless: more than half the days 3. Trouble falling or staying asleep, or sleeping too much: nearly every day 4. Feeling tired or having little energy: several days 5. Poor appetite or overeating: nearly every day 6. Feeling bad about yourself - or that you are a failure or have let yourself or your family down: more than half the days 7. Trouble concentrating on things, such as reading the newspaper or watching television: not at all 8. Moving or speaking so slowly that other people could have noticed. Or the opposite - being so fidgety or restless that you have been moving around a lot more than usual: not at all 9. Thoughts that you would be better off or of hurting yourself in some way: not at all Total score: 13 Depression Screening Interpretation: Positive Depression Screening Follow-up: Community Mental Health Worker F/U Depression Screening Done: Yes 46942 - PHQ-9 Billing: Yes Source: Developed by Drs. León Caruso, Cindy Mack, Idris Call and colleagues, with an educational jeannette from [employer]. Thrive Questionnaire Date Thrive assessed: 03/17/25 I am a: Patient What is your living situation today?: I have a place to live, but I am worried about losing it in the future Within the past 12 months, did the food you bought not last and you didn't have the money to get more?: Sometimes True Within the past 12 months, did you worry whether your food would run out before you got money to buy more?: Sometimes True Do you have trouble paying for medicines?: No Do you have trouble getting transportation to medical appointments?: No Do you have trouble paying your heating and electricity bill?: No Do you have trouble taking care of your child, family member or friend?: No Do you have trouble with day-to-day activities such as bathing, preparing meals, shopping, managing finances, etc.?: No Are you currently unemployed and looking for a job?: No Are you interested in more education?: No Please select the resources that you would like help with: None Currently or been in a relationship where the following occur: No concerns reported THRIVE Score: 3 AUDIT C Alcohol Use Questionnaire (AUDIT-C) 1. How often do you have a drink containing alcohol?: Never 3. How often do you have six or more drinks on one occasion?: Never Total Score: 0 Score Reviewed/Action Taken: Yes MARK-7 AMB Questionnaire MARK-7 Date MARK - 7 assessed: 03/17/25 Feeling nervous, anxious, or on edge: 0 = Not at all Not being able to stop or control worryin = Not at all Worrying too much about different things: 0 = Not at all Trouble relaxin = Not at all Being so restless that it is hard to sit still: 0 = Not at all Becoming easily annoyed or irritable: 0 = Not at all Feeling afraid as if something awful might happen: 0 = Not at all Total MARK-7 score (0-4 normal; 5-9 mild; 10-14 moderate; 15-21 severe): 0 Source: Developed by Drs. León Caruso, Cindy Mack, Idrsi Call and colleagues, with an educational jeannette from [employer]. Review of Systems Const Denies chills, Denies fatigue, Denies fever(s) and Denies headache(s) ENT Denies dysphagia, Denies dizziness, Reports otalgia (on and off right ear pain/congestion/discomfort/pressure), Denies headache(s), Denies neck pain, Reports odynophagia (mild) and Reports sore throat (mostly right-sided (see HPI)) Card Denies chest pain, Denies palpitations and Denies dyspnea Resp Denies chest congestion, Reports cough (occasional, non-productive), Denies dyspnea and Denies wheezing GI Denies abdominal pain, Denies constipation, Denies dysphagia, Denies heartburn, Denies diarrhea, Denies nausea, Reports odynophagia (mild) and Denies vomiting Denies difficulty voiding, Denies nocturia and Denies dysuria Musc Denies back pain and Denies neck pain Skin/Breast Denies rash Neuro Denies dizziness and Denies headache(s) Endo Denies fatigue and Denies palpitations Aller/Immun Denies wheezing Physical exam (Primary Care) Vital Signs: Last Vital Signs Pulse 90 03/17/25 09:05 BP 100/60 03/17/25 09:05 Pulse Ox 97 03/17/25 09:05 Oxygen Delivery Method Room Air 03/17/25 09:05 BMI result Body Mass Index 17.8 Tobacco/Smoking Status: Tobacco use Status Tobacco use date assessed 03/17/25 03/17/25 09:11 Patient Tobacco Use Status Never used Tobacco 03/17/25 09:11 e-Cigarette/Vaping Use Never Used 03/17/25 09:11 PHQ-9: PHQ-9 Score PHQ-9: Total score 13 03/17/25 09:11 Depression Screening Interpretation: Positive Depression Screening Follow-up: Community Mental Health Worker F/U Thrive Assessment: Date of Thrive Assessment Date Thrive assessed 12/05/25 12/05/25 09:11 Currently or been in a relationship where the following occur: No concerns reported Const General: no acute distress and alert HENMT Ears: TM normal on the left, EAC's normal and TM abnormal (slightly) bulging on the right; not with effusion Throat: Yes tonsils normal (no TP congestion), Yes posterior oropharynx abnormal ((+) erythema on the right posterior pharynx) and No postnasal drainage Neck Neck: Yes supple and Yes lymphadenopathy (on the right anterior cervical area - (+) slight tenderness on palpation) Thyroid: Thyroid normal Resp Auscultation: clear to auscultation bilaterally, no rales and no wheezes Cardio Rate: regular rate Rhythm: regular rhythm Heart sounds: no murmurs GI Palpation (GI): Soft to palpation and nontender Auscultation: normal bowel sounds Skin Rashes: no rashes Extrem General: Yes no clubbing, cyanosis or edema Coding Level of Care Code Est Pt Level 3 (73804) Diagnoses Dysfunction of right eustachian tube H69.91 Laterality: right Sore throat J02.9 Congestion of right ear H93.8X1 Additional Codes PHQ-9 - 09846 - PHQ-9 Billing: Yes ([id number]) Assessment & Plan Assessment & Plan (1) Eustachian tube dysfunction: Code(s): H69.90 - Unspecified Eustachian tube disorder, unspecified ear Category: Medical Qualifiers: Laterality: right Qualified Code(s): H69.91 - Unspecified Eustachian tube disorder, right ear (2) Sore throat: Code(s): J02.9 - Acute pharyngitis, unspecified Category: Medical (3) Congestion of right ear: Code(s): H93.8X1 - Other specified disorders of right ear Category: Medical Plan Discussed with patient that her symptoms of right-sided sore throat and right ear congestion/pressure appear consistent with a right-sided eustachian tube dysfunction/infection as well as perhaps a right-sided pharyngitis Will go ahead and start her empirically on Augmentin 875 mg BID x 10 days Advised that if her symptoms do not improve or continue to recur frequently, then she may need to see ENT for further evaluation and management She is advised to continue on her current PPI and Carafate to control her GI issues (gastritis) so they do not contribute to or aggravate her sore throat Follow up with PCP as scheduled in April 2025 Medications: New amoxicillin-pot clavulanate 875-125 mg 1 tab PO BID 20 tabs 0RF 10 days
[2025-03-17 09:05] VITALS: BP 100/60; PULSE 90; O2SAT 97; BMI 17.8
== END 2025-03-17 09:34 | disposition home or self-care (01) ==
LOC: HO.HMCH 09:03
PROVIDERS: PCP Internal Medicine; Visit Provider Internal Medicine
DX: H69.91 Unspecified Eustachian tube disorder, right ear (principal); J02.9 Acute pharyngitis, unspecified; H93.8X1 Other specified disorders of right ear

== ENCOUNTER → 2025-03-17 09:03 | Outpatient (BNVA) | payer OTHER, SELFPAY | PROVIDERS: PCP Internal Medicine; Visit Provider Internal Medicine | DX: H93.8X1 Other specified disorders of right ear (principal); H69.91 Unspecified Eustachian tube disorder, right ear; J02.9 Acute pharyngitis, unspecified | CPT/HCPCS: 96127; 99212 ==

== ENCOUNTER 2025-03-20 10:21 | Outpatient (AMB) | payer OTHER, SELFPAY ==
--- NOTE | 2025-03-20 10:42 | A.OFFVIS_ITS ---
VS Expanded 03/20/25 10:52 Height 5 ft 1 in Weight 93 lb BMI 17.6 Intake Visit Reasons: unintentional wt loss Allergies egg Allergy (Severe, Verified 03/17/25 09:25) Anaphylaxis fluvoxamine Allergy (Intermediate, Verified 03/17/25 09:25) vertigo sesame seed Allergy (Mild, Verified 03/17/25 09:25) Unknown ibuprofen Adverse Reaction (Mild, Verified 03/17/25 09:25) Nausea Nutrition Presentation Details: Pt presents for MNT f/u for unintentional weight loss Pt reports working on a variety of foods, liberalizing the diet and including cheese, fish and vegetarian sources : beans, lentils, peanut butter, soy, nutritional yeast Reports appetite is better in the afternoon Recently moved to a new apartment Breakfast: tends to snack on pretzels with cheese Lunch soup (potatoes soup milk) Dinner: maldonado soup snack on crackers with peanut butter PFSH Medical History PTSD (post-traumatic stress disorder) Depression Positive test Fatigue Nausea Pre-conception counseling Missed menses Gastritis Anxiety Encounter to establish care Surgical History History of esophagogastroduodenoscopy (EGD) [place] teeth extracted Family History Mother Asthma Maternal Grandfather Lung cancer Father No problems noted. Maternal Grandmother Hx of diabetes mellitus Social History Housing: House Alcohol intake: never Patient Tobacco Use Status: Never used Tobacco e-Cigarette/Vaping Use: Never Used Second Hand Smoke Exposure: No service: No Current occupational status: employed Cognitive needs: No Hearing needs: No Vision needs: Yes (Glasses) Female Reproductive History Menstrual Age of Menarche: 10 Assessment & Plan Assessment & Plan (1) Abnormal weight loss: Code(s): R63.4 - Abnormal weight loss Category: Medical Plan: current wt: 43 kg ( 01/05), 42kg( 04/06) est kcal needs as per MSJ: 1500 + gradual increase in calories by 500-1000 to promote weight gain est protein needs as per 1-1.2 g/kg BW: 52 est fluid needs as per 30 ml/kg BW: 1500 Recommended fiber > 12 g /day and gradually increase up to 25-28 g /day or as tolerated Nutrition topics discussed : Reviewed (R), Pt verbalized understanding (V) , not applicable (N/A) R, V, N/A : Healthy Plate Method Concept: R, : Carbohydrates: food sources of carbohydrates, relationship of carbohydrates to blood glucose, fatty liver GI health. Recommended total amount of carbohydrates per meals and snack. Differences between simple carbohydrates and complex carbohydrates R, : Lean protein foods including vegan , vegetarian sources of protein. Benefits of protein (including but not limited to healing, nutritional value , benefits in prevention of muscle wasting l R, : Fats : Source of fats, benefits of fats. Difference between saturated and unsaturated fats. Saturated fats and its contribution to inflammation R, V, N/A: Fiber: food sources and role of fiber in the diet (including but not limited to its role as a prebiotic, benefits in constipation, role in IBS , role in glucose control and cholesterol level) R, : Hydration: role of hydration and prevention of dehydration or over hydration. Foods and water content. R, : Vitamins and Minerals in foods and Nutritional supplements as meal supplements R, V, N/A: Interpreting food labels, including serving size, macronutrients, vitamins, minerals, allergens, ingredient list , % daily value Patient Instructions: Have a nutritional supplement twice a day (katefarms, plant based ensure, owyn as examples) Add 1/2 tablespoon of oil per day to the meals Choose nutrient dense snacks and meals ( yogurt and nuts as snack, peanut butter/jelly sand on whole grain bread and soy milk as example, - see list of options Coding Level of Care Code Nutr Indiv Subseq (12787) Diagnoses Abnormal weight loss R63.4 Time Spent (min) 30
[2025-03-20 10:52] VITALS: BMI 17.6
== END 2025-03-20 11:03 | disposition home or self-care (01) ==
LOC: HO.ENCR 10:21
PROVIDERS: PCP Internal Medicine; Visit Provider Dietitian, Registered
DX: R63.4 Abnormal weight loss (principal)

== ENCOUNTER → 2025-03-20 10:21 | Outpatient (BNVA) | payer OTHER, SELFPAY | PROVIDERS: PCP Internal Medicine; Visit Provider Dietitian, Registered | DX: R63.4 Abnormal weight loss (principal); Z68.1 Body mass index [BMI] 19.9 or less, adult; Z71.3 Dietary counseling and surveillance | CPT/HCPCS: 97803 ==